=== PATIENT | male | born 1975 | race Hispanic/Latino ===

== ENCOUNTER 2016-10-24 06:03 | Day surgery (SDC) | payer MEDICARE ==
[~2016-10-24 06:03] MED LIST: NACL 0.9% 1000 ML 1,000 ML IV SCH; PEPCID PO NR; VERSED IV NR
[2016-10-24] MEDS ORDERED: NACL BACTERIOSTATIC INFILTRATI ONE (06:40)
--- NOTE | 2016-10-24 07:24 | Anesthesia Day of Surgery ---
Anesthesia Day of Surgery - Day of Surgery Patient Examined: Yes Patient H&P Reviewed: Yes Patient is NPO: Yes Beta Blockers: No Cardiac Clearance: No Pulmonary Clearance: No
[2016-10-24] MEDS ORDERED: SUBLIMAZE IV PRN (07:25)
[2016-10-24] MEDS ORDERED: ZOFRAN IV PRN (07:25)
[2016-10-24] MEDS ORDERED: DILAUDID IV PRN (07:25)
--- NOTE | 2016-10-24 07:25 | Anesthesia Consultation ---
Anesthesia Consult and Med Hx Date of service: 10/24/16 - Airway Anesthetic Teeth Evaluation: Good ROM Head & Neck: Adequate Mental/Hyoid Distance: Adequate Mallampati Class: Class II Intubation Access Assessment: Probably Good - Pulmonary Exam CTA: Yes (CLEAR) - Cardiac Exam Cardiac Exam: RRR - Pre-Operative Health Status ASA Pre-Surgery Classification: ASA3 Proposed Anesthetic Plan: General (MENTALLY HANDICAPPED) - Pulmonary Hx Smoking: No Hx Asthma: Yes (ON INHALERS) COPD: No Hx Pneumonia: Yes Hx Sleep Apnea: No (CORDELL PRE SCREEN HIGH RISK) - Cardiovascular System Hx Hypertension: Yes (X 16 YRS) - Central Nervous System Hx Seizures: Yes (ON MEDS- LAST SEIZURE 2 YRS AGO) Hx Psychiatric Problems: Yes (EASILY AGITATED,WILL FIGHT WHEN SCARED) - Endocrine Hx End Stage Renal Disease: No - Other Systems Hx Cancer: No
[2016-10-24] MEDS ORDERED: PROVENTIL IH NR (07:30)
[2016-10-24] MEDS ORDERED: SUBLIMAZE ONE (07:33)
[2016-10-24] MEDS ORDERED: XYLOCAINE MPF 2% ONE (07:33)
[2016-10-24] MEDS ORDERED: ZOFRAN ONE (07:33)
[2016-10-24] MEDS ORDERED: DIPRIVAN 10 MG/ML IV ONE (07:33)
[2016-10-24] MEDS ORDERED: ANCEF/STERILE WATER 2 GM/20 ML 2 GM/20 ML SYRINGE IV ONE (08:26)
[2016-10-24] MEDS ORDERED: ANCEF/STERILE WATER 2 GM/20 ML IV NR (08:30)
[2016-10-24] MEDS ORDERED: VERSED ONE (08:34)
--- NOTE | 2016-10-24 08:40 | Short Stay Summary ---
Short Stay Documentation Date of service: 10/24/16 - History H&P: obtained from office - Allergies and Medications Current Medications: Allergies No Known Allergies Allergy (Verified 10/08/16 16:13) Home Medications Medication Instructions Recorded Confirmed Last Taken Type Fluticasone/Salmeterol [Advair 1 puff IH BID 01/23/15 10/24/16 10/24/16 History Diskus 250-50 mcg] Omeprazole [PriLOSEC] 20 mg PO QDAY 01/23/15 10/08/16 10/23/16 History Benztropine [Cogentin] 1 mg PO BID tablet 01/28/15 10/08/16 10/23/16 Rx Sertraline [Zoloft] 100 mg PO QDAY tablet 01/28/15 10/08/16 10/23/16 Rx Tamsulosin [Flomax] 0.4 mg PO BID capsule 01/28/15 10/08/16 10/23/16 Rx ARIPiprazole [Abilify TAB] 15 mg PO DAILY 10/08/16 10/08/16 10/23/16 History Docusate Sodium [Colace] 100 mg PO BID 10/08/16 10/08/16 10/23/16 History Psyllium Husk [Metamucil] 0.52 gm PO DAILY 10/08/16 10/24/16 10/23/16 History diphenhydrAMINE [Benadryl CAP] 50 mg PO QHS 10/08/16 10/08/16 10/23/16 History levETIRAcetam [Keppra TAB] 1,000 mg PO BID 10/08/16 10/24/16 10/24/16 07:17 History Active Medications Albuterol (Proventil) 2.5 mg IH PREOP NR Stop: 10/24/16 13:00 Last Admin: 10/24/16 07:24 Dose: 2.5 mg Famotidine (Pepcid) 20 mg PO PREOP NR Stop: 10/24/16 23:59 Last Admin: 10/24/16 07:17 Dose: 20 mg Fentanyl (Sublimaze) 50 mcg IV Q5MIN PRN PRN Reason: Pain , Severe (7-10) Stop: 10/24/16 16:00 Hydromorphone HCl (Dilaudid) 0.25 mg IV Q10MIN PRN PRN Reason: Pain, Moderate (4-6) Stop: 10/27/16 07:26 Sodium Chloride (Nacl 0.9% 1000 Ml) 1,000 mls @ 75 mls/hr IV DIRECT IZZY Last Admin: 10/24/16 07:15 Dose: 75 mls/hr Midazolam HCl (Versed) 2 mg IV PREOP NR Stop: 10/24/16 23:59 Last Admin: 10/24/16 07:34 Dose: 2 mg Ondansetron HCl (Zofran) 4 mg IV ONCE PRN PRN Reason: Nausea And Vomiting Stop: 10/24/16 16:00 - Brief post op/procedure progress note Date of procedure: 10/24/16 Pre-op diagnosis: BPH , USD Post-op diagnosis: same Procedure: cysto, dviu, rpg Anesthesia: GETA Findings: usd Surgeon: TANA DOVER Estimated blood loss: minimal Pathology: none Condition: stable - Hospital course Hospital course: orpacuhome - Disposition Condition at discharge: Good Disposition: DISCHARGED TO HOME OR SELFCARE Short Stay Discharge Plan Activity: advance as tolerated Diet: advance as tolerated Follow up with: TANA DOVER MD [Staff Physician] - 7 Days
[2016-10-24] MEDS ORDERED: WATER FOR IRRIG STERILE IR ONE (08:55)
[2016-10-24] MEDS ORDERED: OMNIPAQUE 300 MG/50 ML (CATH LAB) IV ONE (09:08)
[2016-10-24] MEDS ORDERED: LACTATED RINGERS 1,000 ML ONE (09:29)
[2016-10-24] MEDS ORDERED: DEMEROL ONE (09:44)
[2016-10-24] MEDS ORDERED: DEMEROL IV PRN (09:50)
--- NOTE | 2016-10-24 10:57 | Post Anesthesia Evaluation ---
- Post Anesthesia Evaluation Patient Participated: No (resting) Airway Patent: Yes Stable Respiratory Function: Yes Nausea/Vomiting: No Temp > 96.8F: Yes Pain Manageable: Yes Adequeate Hydration: Yes Anesthesia Complications: No Block Receding Appropriately: Not Applicable Patient on Ventilator: No
--- NOTE | 2016-10-24 11:27 | Fluoroscopy Report ---
Retrograde pyelogram: Urethral stricture. The great injections were made into the distal ureters bilaterally with good opacification of the ureters and intrarenal collecting system. There is good distention with no filling defects or displacement.
[2016-10-24 12:19] VITALS: BP 109/70
--- NOTE | 2016-11-08 10:29 | Operative Report ---
PREOPERATIVE DIAGNOSIS: Urethral stricture disease. POSTOPERATIVE DIAGNOSIS: Urethral stricture disease. PROCEDURE: Cystoscopy, bilateral RPG, and DVIU. SURGEON: Ge Willingham M.D. ANESTHESIA: General. SPECIMENS: None. ESTIMATED BLOOD LOSS: Minimal. COMPLICATIONS: None. FINDINGS: Bulbar urethral stricture, 1-2 cm, mild density. CLINICAL INDICATIONS: The patient counseled in the RCBA, antibiotics, SCDs, counseled, desired to proceed. DESCRIPTION OF PROCEDURE: The patient was transferred to the OR suite in supine position, anesthesia, dorsal lithotomy, prepped and draped in standard fashion. A 22-[place] scope, small ____ mm stricture identified. Wire passed in the bladder under fluoroscopic visualization. DVIU ____ was passed, incision made at the 12 o'clock position, measured approximately 1-2 cm with moderate density. The scope was then passed into the bladder. There was moderately large lateral lobe and mildly large median lobe. A ____ [place] scope passed in the bladder, pancystoscopy 30 and 70-degree lens demonstrated no tumors, lesions or other abnormality. Right UO cannulated with 8-[place] cone-tipped catheter, contrast injected. Normal right distal ureter, proximal ureter, renal pelvis, calyces. No filling defects or hydronephrosis. Repeated on the left side with similar normal findings on retrograde pyelogram. At this point, the scope was withdrawn. A 20-[place] catheter was inserted. Balloon inflated, ____ confirmed our position. Exam under anesthesia, bilateral descended testicles, no masses. Digital rectal exam, prostate, no nodules. The patient awakened and transferred to the PACU in good and stable condition. JOB# [id number] ATS/NTS
== END 2016-10-24 11:30 | disposition home or self-care (01) ==
LOC: OR 06:03
PROVIDERS: ATTEND Urology
DX: N35.8 Other urethral stricture (principal); N40.1 Benign prostatic hyperplasia with lower urinary tract symptoms; K21.9 Gastro-esophageal reflux disease without esophagitis; E03.9 Hypothyroidism, unspecified; H54.8 Legal blindness, as defined in USA; F79 Unspecified intellectual disabilities; I10 Essential (primary) hypertension; J45.909 Unspecified asthma, uncomplicated; Z79.899 Other long term (current) drug therapy; Z83.3 Family history of diabetes mellitus; Z82.49 Family history of ischemic heart disease and other diseases of the circulatory system; Z81.8 Family history of other mental and behavioral disorders; Z87.01 Personal history of pneumonia (recurrent)
CPT/HCPCS: 52005; 52276; 74420; 88305; 88341; 88342; A4217; C1758; C1769; J0690; J2175; J2250; J2405; J2704; J3010; J7030; J7120; Q9967

== ENCOUNTER 2017-10-31 20:24 | Emergency (ER) | payer MEDICARE ==
--- NOTE | 2017-11-01 02:22 | Emergency Department Report ---
Chief Complaint: Back Pain/Injury Stated Complaint: BACK PAIN Time Seen by Provider: 11/01/17 02:14 - Exam Vital Signs: Vital Signs 10/31/17 22:12 Temperature 98.5 F Pulse Rate 87 Respiratory 16 Rate Blood Pressure 132/98 [Right] O2 Sat by Pulse 96 Oximetry MSE screening note: Focused history and physical exam performed. Due to findings the following was ordered: ED Disposition for MSE Condition: Stable Referrals: PRIMARY CARE, [Primary Care Provider] - 3-5 Days
--- NOTE | 2017-11-01 02:38 | Emergency Department Report ---
ED Back Pain/Injury HPI - General Chief Complaint: Back Pain/Injury Stated Complaint: BACK PAIN Time Seen by Provider: 11/01/17 02:14 Source: patient Mode of arrival: Stretcher Limitations: No Limitations - History of Present Illness Initial Comments: Patient reports that he fell 2 weeks ago while he was at home and follows accidental 97 increasing back pain. Pain is 10 out of 10. Pain is located to his upper and lower back midline. Denies any numbness or tender extremities. Denies any loss of bowel or bladder function. Denies any head injury or neck pain. Pain is achy worse with movement better with rest. Patient came via EMS and he has a caregiver at home. Patient with history of chronic back pain, asthma, hypertension, GERD, seizure and he had his last seizure 2 years ago, mental retardation, legally blind, pneumonia, metal plate in back of his head. 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 History of thyroid surgery. MD Complaint: back pain, back injury, fall Onset/Timin -: week(s) Similar Symptoms Previously: Yes Place: home Radiation: none Severity: severe Severity scale (0 -10): 10 Quality: aching Consistency: constant Improves With: none Worsens With: movement, sitting upright (decision up to long) Context: fall (accidental) Associated Symptoms: difficulty walking. denies: confusion, weakness, chest pain, numbness, cough, difficulty urinating, diaphoresis, incontinence, fever/ chills, constipation, headaches, abdominal pain, loss of appetite, malaise, nausea/vomiting, rash, seizure, shortness of breath, syncope Treatments Prior to Arrival: acetaminophen - Related Data Home Medications Medication Instructions Recorded Confirmed Last Taken Fluticasone/Salmeterol [Advair 1 puff IH BID 01/23/15 10/24/16 10/24/16 Diskus 250-50 mcg] Omeprazole [PriLOSEC] 20 mg PO QDAY 01/23/15 10/08/16 10/23/16 ARIPiprazole [Abilify TAB] 15 mg PO DAILY 10/08/16 10/08/16 10/23/16 Docusate Sodium [Colace] 100 mg PO BID 10/08/16 10/08/16 10/23/16 Psyllium Husk [Metamucil] 0.52 gm PO DAILY 03/10/24/16 10/23/16 diphenhydrAMINE [Benadryl CAP] 50 mg PO QHS 10/08/16 10/08/16 10/23/16 levETIRAcetam [Keppra TAB] 1,000 mg PO BID 10/08/16 10/24/16 10/24/16 07:17 Previous Rx's Medication Instructions Recorded Last Taken Type Benztropine [Cogentin] 1 mg PO BID tablet 01/28/15 10/23/16 Rx Sertraline [Zoloft] 100 mg PO QDAY tablet 01/28/15 10/23/16 Rx Tamsulosin [Flomax] 0.4 mg PO BID capsule 01/28/15 10/23/16 Rx Allergies Allergy/AdvReac Type Severity Reaction Status Date / Time No Known Allergies Allergy Verified 10/08/16 16:13 ED Review of Systems ROS: Stated complaint: BACK PAIN Other details as noted in HPI Comment: All other systems reviewed and negative Constitutional: no symptoms reported Respiratory: no symptoms reported Cardiovascular: denies: chest pain, palpitations, dyspnea on exertion, edema, syncope, paroxysmal nocturnal dyspnea Gastrointestinal: denies: abdominal pain, nausea, vomiting, diarrhea, constipation, hematemesis, melena Genitourinary: denies: dysuria, frequency, hematuria Musculoskeletal: back pain. denies: joint swelling, arthralgia, myalgia Skin: denies: rash Neurological: other (patient is wheelchair-bound). denies: headache, weakness, numbness, paresthesias, confusion ED Past Medical Hx - Past Medical History Previous Medical History?: Yes Hx Hypertension: Yes (X 16 YRS) Hx Congestive Heart Failure: No Hx Diabetes: No Hx GERD: Yes Hx Seizures: Yes (ON MEDS- LAST SEIZURE 2 YRS AGO) Hx Asthma: Yes (ON INHALERS) Hx COPD: No Additional medical history: legally blind. pneumonia - Surgical History Past Surgical History?: Yes Additional Surgical History: METAL PLATE in the back of his head. 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 thyroid surgery - Family History Family history: hypertension - Social History Smoking Status: Never Smoker Substance Use Type: None - Medications Home Medications: Home Medications Medication Instructions Recorded Confirmed Last Taken Type Fluticasone/Salmeterol [Advair 1 puff IH BID 01/23/15 10/24/16 10/24/16 History Diskus 250-50 mcg] Omeprazole [PriLOSEC] 20 mg PO QDAY 01/23/15 10/08/16 10/23/16 History Benztropine [Cogentin] 1 mg PO BID tablet 01/28/15 10/08/16 10/23/16 Rx Sertraline [Zoloft] 100 mg PO QDAY tablet 01/28/15 10/08/16 10/23/16 Rx Tamsulosin [Flomax] 0.4 mg PO BID capsule 01/28/15 10/08/16 10/23/16 Rx ARIPiprazole [Abilify TAB] 15 mg PO DAILY 10/08/16 10/08/16 10/23/16 History Docusate Sodium [Colace] 100 mg PO BID 10/08/16 10/08/16 10/23/16 History Psyllium Husk [Metamucil] 0.52 gm PO DAILY 10/08/16 10/24/16 10/23/16 History diphenhydrAMINE [Benadryl CAP] 50 mg PO QHS 10/08/16 10/08/16 10/23/16 History levETIRAcetam [Keppra TAB] 1,000 mg PO BID 10/08/16 10/24/16 10/24/16 07:17 History ED Physical Exam - General Limitations: Physical Limitation (patient ambulates with a cane) General appearance: alert, in no apparent distress - Head Head exam: Present: atraumatic, normocephalic, normal inspection, other (normal exam) - Eye Eye exam: Present: normal appearance, PERRL, EOMI, other (patient legally blind) - ENT ENT exam: Present: normal exam, normal orophraynx, mucous membranes moist - Neck Neck exam: Present: normal inspection, full ROM, other (no C-spine tenderness). Absent: tenderness, meningismus, lymphadenopathy - Respiratory Respiratory exam: Present: normal lung sounds bilaterally. Absent: respiratory distress, chest wall tenderness - Cardiovascular Cardiovascular Exam: Present: regular rate, normal rhythm, normal heart sounds - GI/Abdominal GI/Abdominal exam: Present: soft, normal bowel sounds. Absent: distended, tenderness, guarding, rebound, rigid - Extremities Exam Extremities exam: Present: normal inspection, full ROM, normal capillary refill , other (no clubbing cyanosis or edema noted. +2 pulses to all extremities. Multiple fingers to both hands deformity from previous amputation and multiple toes to both feet lab and also previous amputation.). Absent: tenderness, pedal edema, joint swelling, calf tenderness - Back Exam Back exam: Present: normal inspection, full ROM, tenderness (tender to palpate for T Sherry spine upper and lower), vertebral tenderness, other (patient able to ambulate with a cane.). Absent: CVA tenderness (R), CVA tenderness (L), muscle spasm, paraspinal tenderness, rash noted - Neurological Exam Neurological exam: Present: alert, oriented X3, abnormal gait (patient with abnormal gait due to congenital abnormality to lower extremities. He also has posterior both feet amputated. Patient ambulates with a cane.), reflexes normal - Expanded Neurological Exam Expanded Neurological exam: Absent: innattentive, memory loss-remote event, memory loss- recent event, receptive aphasia, expressive aphasia, total aphasia, tremor, protecting the airway Patient oriented to: Present: person, place, time Speech: Present: fluid speech Cranial nerves: EOM's Intact: Normal, Gag Reflex: Normal, Tongue Deviation: Normal, Facial Sensation: Normal Cerebellar function: Finger to Nose: Normal, Romberg: Abnormal Right, Abnormal Left (patient with congenital abnormalities which makes him unsteady on his feet.) Upper motor neuron: Sensory Extinction: Normal Sensory exam: Upper Extremity Light Touch: Normal, Upper Extremity Temperature: Normal, UE 2 Point Discrimination: Normal, Lower Extremity Light Touch: Normal, Lower Extremity Temperature: Normal, LE 2 Point Discrimination: Normal Motor strength exam: RUE: 5, LUE: 5, RLE: 5, LLE: 5 DTR: bicep (R): 2+, bicep (L): 2+, knee (R): 2+, knee (L): 2+ Best Eye Response (Latoya): (4) open spontaneously Best Motor Response (Latoya): (6) obeys commands Best Verbal Response (Latoya): (5) oriented [place] Total: 15 - Psychiatric Psychiatric exam: Present: normal affect, normal mood - Skin Skin exam: Present: warm, dry, intact, normal color. Absent: rash ED Course Vital Signs 10/31/17 22:12 Temperature 98.5 F Pulse Rate 87 Respiratory 16 Rate Blood Pressure 132/98 [Right] O2 Sat by Pulse 96 Oximetry - Reevaluation(s) Reevaluation #1: 11/01/17 03:42 Positive and Gautier 5/325 2 tablets when necessary emergency room for ED Medical Decision Making - Radiology Data Radiology results: report reviewed X-ray to thoracic spine reveal no acute fracture or traumatic subluxation. Mild to moderate degenerative changes. X-ray of lumbar spine revealed no acute fracture or traumatic subluxation. Mild to moderate degenerative changes. - Medical Decision Making ED course: Patient reports that he fell 2 weeks ago and is having upper and lower back pain. Patient had CT scan of thoracic and lumbar spine and it showed no acute abnormalities but patient with chronic arthritis. Patient was given Gautier 5/325 2 tablets in the emergency room for pain. I discussed this with him and I told him that he needs to follow up with orthopedic doctor. He said he called his primary care doctor and they said that they didn't need to see him. I discussed with him that he needs to call and schedule an appointment status post fall with back pain. Patient has chronic back pain which was exacerbation by fall. Patient discharged home in stable condition with caregiver. He said he takes Tylenol at home for pain that was prescribed by his primary care. Critical care attestation.: If time is entered above; I have spent that time in minutes in the direct care of this critically ill patient, excluding procedure time. ED Disposition Clinical Impression: Acute exacerbation of chronic low back pain Degenerative disc disease Qualifiers: Spinal region: thoracolumbar Qualified Code(s): M51.35 - Other intervertebral disc degeneration, thoracolumbar region Disposition: -01 TO HOME OR SELFCARE Is pt being admited?: No Does the pt Need Aspirin: No Condition: Stable Instructions: Back Pain (ED), Degenerative Disc Disease (ED), Fall Prevention ( ED) Additional Instructions: Please continue taking Tylenol as prescribed by primary care doctor Primary care in the morning to schedule follow-up visit status post fall with back pain Please schedule an appointment to follow up with Dr. Orozco was orthopedic doctor for management of chronic back pain. Referrals: LUIS E MARTINEZ MD [Primary Care Provider] - 11/04/17 FERNIE OROZCO MD [Staff Physician] - 3-5 Days
--- NOTE | 2017-11-01 03:03 | Cat Scan Report ---
FINAL REPORT EXAM: CT LUMBAR SPINE WO CON HISTORY: fall with lower back pain COMPARISON: None available. TECHNIQUE: Contiguous axial images were obtained. Additional sagittal and coronal reformatted images were obtained. FINDINGS: Lumbar vertebral body heights are preserved. Mild loss of disc height T12-L1 level. Broad-based disc bulge endplate osteophyte at the T12-L1 level causes moderate canal stenosis. No acute fracture or traumatic subluxation of the lumbar spine. Mild broad-based disc bulges at the L3-L4 through L5-S1 levels. Minimal to mild canal stenosis at those levels. Mild foraminal narrowing L4-L5 and L5-S1 levels due to endplate osteophyte facet changes. IMPRESSION: No acute fracture or traumatic subluxation of the lumbar spine. [id number] degenerative changes.
--- NOTE | 2017-11-01 03:21 | Cat Scan Report ---
FINAL REPORT EXAM: CT THORACIC SPINE WO CON HISTORY: fall with upper back pain COMPARISON: None available. TECHNIQUE: Contiguous axial images were obtained. Additional sagittal and coronal reformatted images were obtained. FINDINGS: No acute fracture or traumatic subluxation of the thoracic spine. Thoracic vertebral body heights preserved. Mild to moderate loss of disc height and moderate anterior endplate osteophyte throughout the thoracic spine. At the T5-T6 through T7-T8 levels, there mild broad-based disc bulge causing mild canal stenosis. At the T11-T12 level, is a right paracentral endplate osteophyte causing mild to moderate focal canal stenosis. At the T12-L1 level, there is a broad-based disc bulge with right paracentral endplate osteophyte causing moderate canal stenosis. This measures 6 x 9 millimeters in axial dimension. Paraspinal musculature is grossly unremarkable. Visualized posterior ribs are intact. Calcified granuloma right lower lobe measuring 5 millimeters. IMPRESSION: No acute fracture or traumatic subluxation of the thoracic spine. Mild to moderate degenerative changes of the thoracic spine.
[2017-11-01] MEDS ORDERED: NORCO 5/325 PO ONE (03:41)
[2017-11-01 04:08] VITALS: BP 130/84
== END 2017-11-01 03:55 | disposition home or self-care (01) ==
LOC: ED 20:24
DX: M51.35 Other intervertebral disc degeneration, thoracolumbar region (principal); M54.5 Low back pain; G89.29 Other chronic pain; I10 Essential (primary) hypertension; K21.9 Gastro-esophageal reflux disease without esophagitis
CPT/HCPCS: 72128; 72131

== ENCOUNTER 2017-11-11 20:17 | Emergency (ER) | payer MEDICARE ==
[2017-11-11 22:12] LABS: Hematocrit 44.1 % (35.5-45.6); Mean Corpuscular HGB Conc 34 % (32-34); Mean Corpuscular Hemoglobin 31 pg (28-32); Mean Corpuscular Volume 93 fl (84-94); Platelet Count 230 K/mm3 (140-440); Red Blood Count 4.77 M/mm3 (3.65-5.03)
[2017-11-11 22:24] LABS: BUN/Creatinine Ratio 12; Blood Urea Nitrogen 7 mg/dL (9-20); Calcium 8.8 mg/dL (8.4-10.2); Hemolysis Index 10
[2017-11-12] MEDS ORDERED: NACL 0.9% 1000 ML 1,000 ML IV ONE (05:37)
[2017-11-12] MEDS ORDERED: KEPPRA 1,000 MG/NS 0.75% 100ML 1,000 MG/100 ML BAG IV ONE (05:37)
[2017-11-12 06:27] VITALS: BP 136/91
--- NOTE | 2017-11-12 06:27 | Emergency Department Report ---
ED General Adult HPI - General Chief complaint: Seizure Stated complaint: MENTAL HEALTH Time Seen by Provider: 11/12/17 06:21 Source: patient, EMS Mode of arrival: Ambulatory Limitations: No Limitations - History of Present Illness Initial comments: This is a 41 year old male with a history of schizophrenia residing at a alf. There is a question as to whether he had a seizure. He was aware that he was shaking. He admits anxiety. He states he has concerns about a lot of medical issues like "maybe I might have a heart attack". He is not hallucinating, depressed, suicidal or agitated. He does think he needs something for anxiety. He states I wouldn't mind being admitted to the hospital for 8 days because I was before". He has been previously treated with Keppra by Dr. Beyer a neurologist in [facility]. -: Sudden Radiation: other (no pain complaint) Improves with: none Worsens with: none Associated Symptoms: denies other symptoms (except for anxiety) - Related Data Home Medications Medication Instructions Recorded Confirmed Last Taken Fluticasone/Salmeterol [Advair 1 puff IH BID 01/23/15 10/24/16 10/24/16 Diskus 250-50 mcg] Omeprazole [PriLOSEC] 20 mg PO QDAY 01/23/15 10/08/16 10/23/16 ARIPiprazole [Abilify TAB] 15 mg PO DAILY 10/08/16 10/08/16 10/23/16 Docusate Sodium [Colace] 100 mg PO BID 10/08/16 10/08/16 10/23/16 Psyllium Husk [Metamucil] 0.52 gm PO DAILY 10/08/16 10/24/16 10/23/16 diphenhydrAMINE [Benadryl CAP] 50 mg PO QHS 10/08/16 10/08/16 10/23/16 levETIRAcetam [Keppra TAB] 1,000 mg PO BID 10/08/16 10/24/16 10/24/16 07:17 Previous Rx's Medication Instructions Recorded Last Taken Type Benztropine [Cogentin] 1 mg PO BID tablet 01/28/15 10/23/16 Rx Sertraline [Zoloft] 100 mg PO QDAY tablet 01/28/15 10/23/16 Rx Tamsulosin [Flomax] 0.4 mg PO BID capsule 01/28/15 10/23/16 Rx levETIRAcetam [Keppra] 500 mg PO BID #60 tablet 11/12/17 Unknown Rx Allergies Allergy/AdvReac Type Severity Reaction Status Date / Time No Known Allergies Allergy Verified 10/08/16 16:13 ED Review of Systems ROS: Stated complaint: MENTAL HEALTH Other details as noted in HPI Constitutional: denies: chills, fever Eyes: denies: eye pain, eye discharge, vision change ENT: denies: ear pain, throat pain Respiratory: denies: cough, shortness of breath, wheezing Cardiovascular: denies: chest pain, palpitations Endocrine: no symptoms reported Gastrointestinal: denies: abdominal pain, nausea, diarrhea Genitourinary: denies: urgency, dysuria Musculoskeletal: denies: back pain, joint swelling, arthralgia Skin: denies: rash, lesions Neurological: denies: headache, weakness, paresthesias Psychiatric: anxiety. denies: depression Hematological/Lymphatic: denies: easy bleeding, easy bruising ED Past Medical Hx - Past Medical History Hx Hypertension: Yes (X 16 YRS) Hx Congestive Heart Failure: No Hx Diabetes: No Hx GERD: Yes Hx Seizures: Yes (ON MEDS- LAST SEIZURE 2 YRS AGO) Hx Asthma: Yes (ON INHALERS) Hx COPD: No Additional medical history: legally blind. pneumonia - Surgical History Additional Surgical History: METAL PLATE in the back of his head. 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 thyroid surgery - Social History Smoking Status: Never Smoker Substance Use Type: None - Medications Home Medications: Home Medications Medication Instructions Recorded Confirmed Last Taken Type Fluticasone/Salmeterol [Advair 1 puff IH BID 01/23/15 10/24/16 10/24/16 History Diskus 250-50 mcg] Omeprazole [PriLOSEC] 20 mg PO QDAY 01/23/15 10/08/16 10/23/16 History Benztropine [Cogentin] 1 mg PO BID tablet 01/28/15 10/08/16 10/23/16 Rx Sertraline [Zoloft] 100 mg PO QDAY tablet 01/28/15 10/08/16 10/23/16 Rx Tamsulosin [Flomax] 0.4 mg PO BID capsule 01/28/15 10/08/16 10/23/16 Rx ARIPiprazole [Abilify TAB] 15 mg PO DAILY 10/08/16 10/08/16 10/23/16 History Docusate Sodium [Colace] 100 mg PO BID 10/08/16 10/08/16 10/23/16 History Psyllium Husk [Metamucil] 0.52 gm PO DAILY 10/08/16 10/24/16 10/23/16 History diphenhydrAMINE [Benadryl CAP] 50 mg PO QHS 10/08/16 10/08/16 10/23/16 History levETIRAcetam [Keppra TAB] 1,000 mg PO BID 10/08/16 10/24/16 10/24/16 07:17 History levETIRAcetam [Keppra] 500 mg PO BID #60 tablet 11/12/17 Unknown Rx ED Physical Exam - General Limitations: Other (psychiatric condition) General appearance: alert, in no apparent distress - Head Head exam: Present: atraumatic, normocephalic - Eye Eye exam: Present: normal appearance, PERRL, EOMI. Absent: scleral icterus - ENT ENT exam: Present: mucous membranes moist - Neck Neck exam: Present: normal inspection - Respiratory Respiratory exam: Present: normal lung sounds bilaterally. Absent: respiratory distress - Cardiovascular Cardiovascular Exam: Present: regular rate, normal rhythm. Absent: systolic murmur, diastolic murmur, rubs, gallop - GI/Abdominal GI/Abdominal exam: Present: soft, normal bowel sounds. 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 Absent: motor sensory deficit (as testable) - Psychiatric Psychiatric exam: Present: normal mood, anxious - Skin Skin exam: Present: warm, dry, intact, normal color. Absent: rash ED Course Vital Signs 11/11/17 11/11/17 11/12/17 21:32 21:46 02:25 Temperature 98.3 F 98.3 F 98.0 F Pulse Rate 89 89 68 Respiratory 18 18 18 Rate Blood Pressure 167/103 139/93 Blood Pressure 167/103 [Right] O2 Sat by Pulse 98 98 98 Oximetry 11/12/17 11/12/17 05:33 06:26 Temperature Pulse Rate 74 Respiratory 18 14 Rate Blood Pressure Blood Pressure 136/91 [Right] O2 Sat by Pulse 98 96 Oximetry - Reevaluation(s) Reevaluation #1: Patient received a gram of Keppra. He will be given some Ativan by mouth. He will be given a prescription for Keppra. He is appropriate for outpatient follow-up with his neurologist. I find it quite uncertain as to whether he even had a seizure. 11/12/17 06:56 ED Medical Decision Making - Lab Data Result diagrams: 11/11/17 21:54 11/11/17 21:54 Laboratory Results - last 24 hr 11/11/17 11/11/17 11/11/17 21:54 21:54 21:57 WBC 9.3 RBC 4.77 Hgb 15.0 Hct 44.1 MCV 93 MCH 31 MCHC 34 RDW 14.0 Plt Count 230 Sodium 128 L Potassium 4.0 Chloride 88.8 L Carbon Dioxide 26 Anion Gap 17 BUN 7 L Creatinine 0.6 L Estimated GFR > 60 BUN/Creatinine Ratio 12 Glucose 101 H POC Glucose 101 Calcium 8.8 Critical care attestation.: If time is entered above; I have spent that time in minutes in the direct care of this critically ill patient, excluding procedure time. ED Disposition Clinical Impression: Seizure disorder Schizophrenia Qualifiers: Schizophrenia type: unspecified Qualified Code(s): F20.9 - Schizophrenia, unspecified Disposition: - TO HOME OR SELFCARE Is pt being admited?: No Does the pt Need Aspirin: No Condition: Stable Instructions: Recurrent Seizures Adult (ED), Schizophrenia (ED), Anxiety (ED) Additional Instructions: Follow-up with the usual psychiatric doctor and neurologist. Return any acute change as needed. Rx Keppra Prescriptions: levETIRAcetam [Keppra] 500 mg PO BID #60 tablet Referrals: PRIMARY CARE, [Primary Care Provider] - 3-5 Days usual, neurologist and psychiatrist [Other] - 3-5 Days Time of Disposition: 06:58
== END 2017-11-12 07:28 | disposition home or self-care (01) ==
LOC: EEVIPCON 20:17 → ED 20:17
DX: G40.909 Epilepsy, unspecified, not intractable, without status epilepticus (principal); F20.9 Schizophrenia, unspecified; I10 Essential (primary) hypertension; K21.9 Gastro-esophageal reflux disease without esophagitis
CPT/HCPCS: 36415; 80048; 82962; 85027; 96374; 99284; J1953; J7030

== ENCOUNTER 2017-11-26 20:44 | Observation (INO) | payer MEDICARE ==
[2017-11-26] MEDS ORDERED: ASPIRIN PO ONE (21:26)
[2017-11-26 21:49] LABS: Basophils # (Auto) 0.1 K/mm3 (0.0-0.1); Basophils % (Auto) 0.4 % (0.0-1.8); Eosinophils # (Auto) 0.1 K/mm3 (0.0-0.4); Eosinophils % (Auto) 0.8 % (0.0-4.3); Hematocrit 47.9 % (35.5-45.6); Hemoglobin 16.8 gm/dl (11.8-15.2); Lymphocytes # (Auto) 1.3 K/mm3 (1.2-5.4); Lymphocytes % (Auto) 11.1 % (13.4-35.0); Mean Corpuscular HGB Conc 35 % (32-34); Mean Corpuscular Hemoglobin 32 pg (28-32); Mean Corpuscular Volume 92 fl (84-94); Monocytes # (Auto) 0.7 K/mm3 (0.0-0.8); Monocytes % (Auto) 5.6 % (0.0-7.3); Platelet Count 218 K/mm3 (140-440); Red Cell Distribution Width 13.4 % (13.2-15.2)
[2017-11-26 22:03] LABS: BUN/Creatinine Ratio 16; Blood Urea Nitrogen 11 mg/dL (9-20); Calcium 9.3 mg/dL (8.4-10.2); Hemolysis Index 12
[2017-11-26] MEDS ORDERED: ZOFRAN IV ONE (23:32)
[2017-11-26] MEDS ORDERED: MORPHINE IV ONE (23:33)
--- NOTE | 2017-11-26 23:35 | Emergency Department Report ---
HPI - General Chief Complaint: Chest Pain Time Seen by Provider: 11/26/17 23:19 - HPI HPI: Room 4 The patient is a 41-year-old male presenting with chief complaint of chest pain or shortness of breath. The patient states this evening is lying in his bed and developed substernal chest pain that has been sharp and constant in nature. The patient admits to shortness of breath, nausea/vomiting and diaphoresis with his chest pain. He admits to a pleuritic component. Patient denies fever but admits to an occasionally productive cough. The patient gets his pain is score of 10/10. Patient states he's never had a stress test or cardiac catheterization Location: Chest Duration: One day Quality: Sharp Severity: 10/10 Modifying factors: [see above] Context: [see above] Mode of transportation: [not driving] ED Past Medical Hx - Past Medical History Previous Medical History?: Yes Hx Hypertension: Yes (X 16 YRS) Hx GERD: Yes Hx Seizures: Yes (ON MEDS- LAST SEIZURE 2 YRS AGO) Hx Asthma: Yes (ON INHALERS) Additional medical history: legally blind. pneumonia - Surgical History Past Surgical History?: Yes Additional Surgical History: METAL PLATE in the back of his head. 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 thyroid surgery - Social History Smoking Status: Never Smoker Substance Use Type: None (denies illicit drug use) - Medications Home Medications: Home Medications Medication Instructions Recorded Confirmed Last Taken Type Fluticasone/Salmeterol [Advair 1 puff IH BID 01/23/15 10/24/16 10/24/16 History Diskus 250-50 mcg] Omeprazole [PriLOSEC] 20 mg PO QDAY 01/23/15 10/08/16 10/23/16 History Benztropine [Cogentin] 1 mg PO BID tablet 01/28/15 10/08/16 10/23/16 Rx Sertraline [Zoloft] 100 mg PO QDAY tablet 01/28/15 10/08/16 10/23/16 Rx Tamsulosin [Flomax] 0.4 mg PO BID capsule 01/28/15 10/08/16 10/23/16 Rx ARIPiprazole [Abilify TAB] 15 mg PO DAILY 10/08/16 10/08/16 10/23/16 History Docusate Sodium [Colace] 100 mg PO BID 10/08/16 10/08/16 10/23/16 History Psyllium Husk [Metamucil] 0.52 gm PO DAILY 10/08/16 10/24/16 10/23/16 History diphenhydrAMINE [Benadryl CAP] 50 mg PO QHS 10/08/16 10/08/16 10/23/16 History levETIRAcetam [Keppra TAB] 1,000 mg PO BID 10/08/16 10/24/16 10/24/16 07:17 History levETIRAcetam [Keppra] 500 mg PO BID #60 tablet 11/12/17 Unknown Rx ED Review of Systems ROS: Stated complaint: MH Other details as noted in HPI Constitutional: diaphoresis. denies: fever Respiratory: shortness of breath Cardiovascular: chest pain Gastrointestinal: abdominal pain, nausea, vomiting Physical Exam - Physical Exam Vital Signs: Vital Signs 11/26/17 11/26/17 11/26/17 20:52 21:06 22:53 Temperature 98.4 F 98.4 F 98.3 F Pulse Rate 85 87 65 Respiratory 16 16 18 Rate Blood Pressure 138/98 138/98 Blood Pressure 121/84 [Left] O2 Sat by Pulse 97 97 97 Oximetry Physical Exam: GENERAL: The patient is a well-nourished male lying on stretcher not appearing to be in acute distress. [] HEENT: Surgical scar from previous craniotomy at occiput. Atraumatic. Extraocular motions are intact. Patient has moist mucous membranes. NECK: Supple. Trachea midline CHEST/LUNGS: Clear to auscultation. There is no respiratory distress noted. HEART/CARDIOVASCULAR: Regular. There is no tachycardia. There is no gallop rub or murmur. ABDOMEN: Abdomen is soft, nontender. Patient has normal bowel sounds. There is no abdominal distention. SKIN: There is no rash. There is no edema. There is no diaphoresis. NEURO: The patient is awake, alert, and oriented. The patient is cooperative. The patient has normal speech MUSCULOSKELETAL: There is no evidence of acute injury. ED Course Vital Signs 11/26/17 11/26/17 11/26/17 20:52 21:06 22:53 Temperature 98.4 F 98.4 F 98.3 F Pulse Rate 85 87 65 Respiratory 16 16 18 Rate Blood Pressure 138/98 138/98 Blood Pressure 121/84 [Left] O2 Sat by Pulse 97 97 97 Oximetry ED Medical Decision Making - Lab Data Result diagrams: 11/26/17 21:34 11/26/17 21:34 Laboratory Tests 11/26/17 11/26/17 11/26/17 21:34 21:34 21:34 WBC 12.0 H RBC 5.20 H Hgb 16.8 H Hct 47.9 H MCV 92 MCH 32 MCHC 35 H RDW 13.4 Plt Count 218 Lymph % (Auto) 11.1 L [place] % (Auto) 5.6 Eos % (Auto) 0.8 Baso % (Auto) 0.4 Lymph # 1.3 Hamb[place] # 0.7 Eos # 0.1 Baso # 0.1 Seg Neutrophils % 82.1 H Seg Neutrophils # 9.9 H D-Dimer Sodium Potassium Chloride Carbon Dioxide Anion Gap BUN Creatinine Estimated GFR BUN/Creatinine Ratio Glucose Calcium Troponin T Salicylates < 0.3 L Acetaminophen < 5.0 L Plasma/Serum Alcohol 11/26/17 11/26/17 11/26/17 21:34 21:34 23:47 WBC RBC Hgb Hct MCV MCH MCHC RDW Plt Count Lymph % (Auto) [place] % (Auto) Eos % (Auto) Baso % (Auto) Lymph # Hamblen # Eos # Baso # Seg Neutrophils % Seg Neutrophils # D-Dimer 135.00 Sodium 135 L Potassium 4.1 Chloride 97.6 L Carbon Dioxide 24 Anion Gap 18 BUN 11 Creatinine 0.7 L Estimated GFR > 60 BUN/Creatinine Ratio 16 Glucose 113 H Calcium 9.3 Troponin T < 0.010 Salicylates Acetaminophen Plasma/Serum Alcohol < 0.01 - EKG Data -: EKG Interpreted by Me EKG shows normal: sinus rhythm Rate: normal - EKG Data When compared to previous EKG there are: previous EKG unavailable Interpretation: nonspecific ST-T wave benito (T-wave inversion in lead 3) - Radiology Data Radiology results: report reviewed (chest x-ray), image reviewed (chest x-ray) interpreted by me: Chest x-ray-no focal infiltrate, no pneumothorax [facility] [address] [place] [address] XRay Report Signed Patient: FLORIDA CROCKER MR#: [id number] : 1975 Acct:[id number] Age/Sex: 41 / M ADM Date: 11/26/17 Loc: ED Attending Dr: Ordering Physician: DAVION CLIFTON MD Date of Service: 11/27/17 Procedure(s): XR chest 1V ap Accession Number(s): [id number] cc: DAVION CLIFTON MD Fluoro Time In Minutes: FINAL REPORT EXAM: XR CHEST 1V AP HISTORY: chest pain TECHNIQUE: A portable upright view the chest was obtained. FINDINGS: The heart size and mediastinum appear normal. The lungs are negative for infiltrates or congestion. Pleural fluid is not seen. The bones soft tissues do not show any acute changes. IMPRESSION: No active chest disease. Transcribed By: RB Dictated By: FERNIE LANDIS MD Electronically Authenticated By: FERNIE LANDIS MD Signed Date/Time: 11/27/1726 DD/ TD/TT: 11/27/1726 - Differential Diagnosis ACS, pericarditis, PE, GERD, pneumonia, bronchitis Critical care attestation.: If time is entered above; I have spent that time in minutes in the direct care of this critically ill patient, excluding procedure time. ED Disposition Clinical Impression: Chest pain Disposition: OP ADMIT IP TO THIS HOSP Is pt being admited?: Yes Does the pt Need Aspirin: Yes Condition: Fair Instructions: Chest Pain (ED) Referrals: PRIMARY CARE, [Primary Care Provider] - 3-5 Days Time of Disposition: 00:41 (hospitalist paged (Dr. Mya Lopez))
--- NOTE | 2017-11-27 00:32 | XRay Report ---
FINAL REPORT EXAM: XR CHEST 1V AP HISTORY: chest pain TECHNIQUE: A portable upright view the chest was obtained. FINDINGS: The heart size and mediastinum appear normal. The lungs are negative for infiltrates or congestion. Pleural fluid is not seen. The bones soft tissues do not show any acute changes. IMPRESSION: No active chest disease.
[2017-11-27] MEDS ORDERED: NITRO-BID 2% TP ONE (00:41)
[2017-11-27] MEDS ORDERED: TYLENOL PO PRN (01:34)
[2017-11-27] MEDS ORDERED: PERCOCET 5/325 PO PRN (01:34)
[2017-11-27] MEDS ORDERED: SODIUM CHLORIDE FLUSH SYRINGE 10 ML IV PRN (01:34)
[2017-11-27] MEDS ORDERED: ZOFRAN IV PRN (01:34)
--- NOTE | 2017-11-27 01:47 | History and Physical Report ---
History of Present Illness Date of examination: 11/27/17 History of present illness: 41 -year-old man history of mental retardation, asthma, seizure, legally blind, seizure comes emergency room with complaints of chest pain located in the epigastric area which she describes as sharp, intermittent every 30 minutes, no radiation, candidate and exacerbating or relieving factors. Admits to shortness of breath, palpitations, no nausea vomiting, diaphoresis Review of systems Constitutional: no weight loss, chills Ears, eyes, nose, mouth and throat: no nasal congestion, no nasal discharge, no sinus pressure, no vision change, no red eye. Neck: No neck pain or rigidity. Cardiovascular: +chest pain, palpitations Respiratory: No cough, shortness of breath Gastrointestinal: no abdominal pain, hematochezia Genitourinary : no dysuria, frequency , no hematuria Musculoskeletal: no joint swelling or muscle ache Integumentary: no rash, no pruritis Neurological: no parathesias, no numbness, no focal weakness Endocrine: no cold or heat intolerance, no polyuria or polydipsia Hematologic/Lymphatic: no easy bruising, no easy bleeding, no gland swelling Allergic/Immunologic: no urticaria, no angioedema. 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, seizure PAST SURGICAL HISTORY: Bladder surgery, thyroid surgery SOCIAL HISTORY: Lives in a [place] [facility], no alcohol, tobacco, drugs FAMILY HISTORY: Hypertension Medications and Allergies Allergies Allergy/AdvReac Type Severity Reaction Status Date / Time No Known Allergies Allergy Verified 10/08/16 16:13 Home Medications Medication Instructions Recorded Confirmed Last Taken Type Fluticasone/Salmeterol [Advair 1 puff IH BID 01/23/15 11/27/17 10/24/16 History Diskus 250-50 mcg] Benztropine [Cogentin] 1 mg PO BID tablet 01/28/15 11/27/17 10/23/16 Rx Sertraline [Zoloft] 100 mg PO QDAY tablet 01/28/15 11/27/17 10/23/16 Rx Tamsulosin [Flomax] 0.4 mg PO BID capsule 01/28/15 11/27/17 10/23/16 Rx ARIPiprazole [Abilify TAB] 15 mg PO DAILY 10/08/16 11/27/17 10/23/16 History Docusate Sodium [Colace] 100 mg PO BID 10/08/16 11/27/17 10/23/16 History Psyllium Husk [Metamucil] 0.52 gm PO DAILY 10/08/16 11/27/17 10/23/16 History diphenhydrAMINE [Benadryl CAP] 50 mg PO QHS 10/08/16 11/27/17 10/23/16 History levETIRAcetam [Keppra TAB] 1,000 mg PO BID 10/08/16 11/27/17 10/24/16 07:17 History Exam - Physical Exam Narrative exam: Gen. appearance: Patient lying in bed, no apparent distress HEENT: Normocephalic, atraumatic, pupils equally round and reactive to light, extraocular movement intact, and no sclericterus,. No JVD or thyromegaly or nodule,neck supple, no carotid bruit ,mucous membranes moist, no exudate or erythema Heart: S1, S2, regular rate and rhythm Lungs: Clear to auscultation bilaterally, breathing comfortable Abdomen: Positive bowel sounds, nontender, nondistended, no organomegaly Extremity: No edema, cyanosis, clubbing Skin: No rash, nodules, warm, dry Neuro: Oriented 3, cranial nerves II-12 intact, speech is fluent, motor and sensory intact - Constitutional Vitals: Temp Pulse Resp BP Pulse Ox 98.3 F 74 18 117/74 96 11/26/17 22:53 11/27/17 01:17 11/26/17 22:53 11/27/17 01:17 11/27/17 00:30 Results - Labs CBC & Chem 7: 11/26/17 21:34 11/26/17 21:34 Labs: Abnormal lab results 11/26/17 11/26/17 11/26/17 Range/Units 21:34 21:34 21:34 WBC 12.0 H (4.5-11.0) K/mm3 RBC 5.20 H (3.65-5.03) M/mm3 Hgb 16.8 H (11.8-15.2) gm/dl Hct 47.9 H (35.5-45.6) % MCHC 35 H (32-34) % Lymph % (Auto) 11.1 L (13.4-35.0) % Seg Neutrophils % 82.1 H (40.0-70.0) % Seg Neutrophils # 9.9 H (1.8-7.7) K/mm3 Sodium (137-145) mmol/L Chloride (98-107) mmol/L Creatinine (0.8-1.5) mg/dL Glucose (75-100) mg/dL Salicylates < 0.3 L (2.8-20.0) mg/dL Acetaminophen < 5.0 L (10.0-30.0) ug/mL 11/26/17 Range/Units 21:34 WBC (4.5-11.0) K/mm3 RBC (3.65-5.03) M/mm3 Hgb (11.8-15.2) gm/dl Hct (35.5-45.6) % MCHC (32-34) % Lymph % (Auto) (13.4-35.0) % Seg Neutrophils % (40.0-70.0) % Seg Neutrophils # (1.8-7.7) K/mm3 Sodium 135 L (137-145) mmol/L Chloride 97.6 L (98-107) mmol/L Creatinine 0.7 L (0.8-1.5) mg/dL Glucose 113 H (75-100) mg/dL Salicylates (2.8-20.0) mg/dL Acetaminophen (10.0-30.0) ug/mL - Imaging and Cardiology EKG: image reviewed Chest x-ray: image reviewed Assessment and Plan Assessment Atypical chest pain leukocytosis probably stress-induced Mental retardation Asthma, stable Seizure Plan Admit to medicine Check reticulocyte and alcohol consult cardiology Blood cultures, urinalysis DVT prophylaxis
[2017-11-27 01:56] LABS: Bilirubin,Urine NEG (Negative); Blood,Urine NEG (Negative); Color,Urine Straw (Yellow); Protein,Urine <15 mg/dL mg/dL (Negative); Urobilinogen,Urine < 2.0 mg/dL (<2.0)
[2017-11-27 02:03] LABS: Amphetamine Screen,Urine PRESUMPTIVE NEGATIVE; Benzodiazepines Screen,Urine PRESUMPTIVE NEGATIVE; Cannabinoid Screen,Urine PRESUMPTIVE NEGATIVE; Cocaine Screen,Urine PRESUMPTIVE NEGATIVE; Methadone Screen,Urine PRESUMPTIVE NEGATIVE; Opiate Screen,Urine PRESUMPTIVE NEGATIVE
[2017-11-27 09:34] LABS: Creatine Kinase MB 2.5 ng/mL (0.0-4.0)
[2017-11-27] MEDS ORDERED: NON-FORMULARY (Fluticasone/Salmeterol [Advair Diskus 250-50 Mcg] 1 PUFF) IH SCH (10:00)
[2017-11-27] MEDS: ABILIFY PO SCH (10:21)
[2017-11-27] MEDS: COGENTIN PO SCH ×2 (10:21→21:22)
[2017-11-27] MEDS: KEPPRA PO SCH ×2 (10:21→21:22)
[2017-11-27] MEDS: COLACE PO SCH ×2 (10:21→21:23)
[2017-11-27] MEDS: LOVENOX SUB-Q SCH (10:22)
[2017-11-27] MEDS: SODIUM CHLORIDE FLUSH SYRINGE 10 ML IV SCH ×2 (10:22→21:22)
[2017-11-27] MEDS: ZOLOFT PO SCH (11:42)
[2017-11-27] MEDS: FLOMAX PO SCH ×2 (11:42→21:23)
[2017-11-27] MEDS ORDERED: DUONEB *Not for PRN Use IH ONE (12:04)
[2017-11-27] MEDS: PULMICORT IH SCH ×2 (12:19→20:24)
[2017-11-27] MEDS: BROVANA NEBU IH SCH ×2 (12:19→20:24)
--- NOTE | 2017-11-27 12:38 | Consultation ---
History of Present Illness Consult date: 11/27/17 Requesting physician: NEIL DELGADILLO Consult reason: chest pain History of present illness: The patient is a 41-year-old male with a past medical history significant for HTN, seizures (reports last seizure was 4 years ago), congenital deformity of hands and feet, cognitive impairment and lives in [facility]. He is previously unknown to our practice. He presented with complaints of generalized pain, including chest pain, and an episode or paralysis last night. He reports that he was lying in his bed when he suddenly became unable to move his body. His arms crossed across his chest and legs were extended out straight. He denies any loss of consciousness or seizure-like activity. He called for help and a home care chaplain in his [facility] responded and called EMS. The episode of paralysis lasted for approximately 30 minutes. He reports generalized body pain, including chest pain. He describes his chest pain as a nonexertional, nonradiating midsternal sharp pain which is aggravated by deep breathing and coughing and is somewhat reproducible with palpation. He denies any SOB, palpitations, n/v, diaphoresis, dizziness or syncope. He denies any prior cardiac issues or cardiac evaluation. Past History Past Medical History: hyperlipidemia, seizures, other (cognitive impairment, congenital deformity of hands and feet) Medications and Allergies Allergies Allergy/AdvReac Type Severity Reaction Status Date / Time No Known Allergies Allergy Verified 10/08/16 16:13 Home Medications Medication Instructions Recorded Confirmed Last Taken Type Fluticasone/Salmeterol [Advair 1 puff IH BID 01/23/15 11/27/17 10/24/16 History Diskus 250-50 mcg] Benztropine [Cogentin] 1 mg PO BID tablet 01/28/15 11/27/17 10/23/16 Rx Sertraline [Zoloft] 100 mg PO QDAY tablet 01/28/15 11/27/17 10/23/16 Rx Tamsulosin [Flomax] 0.4 mg PO BID capsule 01/28/15 11/27/17 10/23/16 Rx ARIPiprazole [Abilify TAB] 15 mg PO DAILY 10/08/16 11/27/17 10/23/16 History Docusate Sodium [Colace] 100 mg PO BID 10/08/16 11/27/17 10/23/16 History Psyllium Husk [Metamucil] 0.52 gm PO DAILY 10/08/16 11/27/17 10/23/16 History diphenhydrAMINE [Benadryl CAP] 50 mg PO QHS 10/08/16 11/27/17 10/23/16 History levETIRAcetam [Keppra TAB] 1,000 mg PO BID 10/08/16 11/27/17 10/24/16 07:17 History Active Meds: Active Medications Acetaminophen (Tylenol) 650 mg PO Q4H PRN PRN Reason: Pain MILD(1-3)/Fever >100.5/NEUMANN Arformoterol Tartrate (Brovana Nebu) 15 mcg IH Q12HRT [facility] Last Admin: 11/27/17 12:19 Dose: 15 mcg Aripiprazole (Abilify) 15 mg PO DAILY [facility] Last Admin: 11/27/17 10:21 Dose: 15 mg Benztropine Mesylate (Cogentin) 1 mg PO BID [facility] Last Admin: 11/27/17 10:21 Dose: 1 mg Budesonide (Pulmicort) 0.5 mg IH Q12HRT [facility] Last Admin: 11/27/17 12:19 Dose: 0.5 mg Docusate Sodium (Colace) 100 mg PO BID [facility] Last Admin: 11/27/17 10:21 Dose: 100 mg Enoxaparin Sodium (Lovenox) 40 mg SUB-Q QDAY [facility] Last Admin: 11/27/17 10:22 Dose: 40 mg Levetiracetam (Keppra) 1,000 mg PO BID [facility] Last Admin: 11/27/17 10:21 Dose: 1,000 mg Ondansetron HCl (Zofran) 4 mg IV Q8H PRN PRN Reason: Nausea And Vomiting Oxycodone/Acetaminophen (Percocet 5/325) 1 tab PO Q6H PRN PRN Reason: Pain, Moderate (4-6) Last Admin: 11/27/17 10:22 Dose: 1 tab Sertraline HCl (Zoloft) 100 mg PO QDAY [facility] Last Admin: 11/27/17 11:42 Dose: 100 mg Sodium Chloride (Sodium Chloride Flush Syringe 10 Ml) 10 ml IV BID [facility] Last Admin: 11/27/17 10:22 Dose: 10 ml Sodium Chloride (Sodium Chloride Flush Syringe 10 Ml) 10 ml IV PRN PRN PRN Reason: LINE FLUSH Tamsulosin HCl (Flomax) 0.4 mg PO BID [facility] Last Admin: 11/27/17 11:42 Dose: 0.4 mg Review of Systems Constitutional: other (30 minute episode of paralysis and generalized pain ), no weight loss, no weight gain, no fever, no chills, no sweats Ears, nose, mouth and throat: no ear pain, no nose pain, no sinus pressure, no sinus pain Cardiovascular: chest pain, phlebitis, no orthopnea, no palpitations, no rapid/ irregular heart beat, no edema, no syncope, no lightheadedness, no shortness of breath, no dyspnea on exertion, no leg edema Respiratory: pain on inspiration, no cough, no shortness of breath, no dyspnea on exertion, no congestion, no wheezing Gastrointestinal: no abdominal pain, no nausea, no vomiting, no diarrhea, no constipation, no change in bowel habits Genitourinary Male: no dysuria, no hematuria, no flank pain, no discharge, no urinary frequency, no urinary hesitancy Musculoskeletal: other (generalized pain) Integumentary: no rash, no wounds Neurological: other (30 min bout of paralysis ), no head injury, no weakness, no parathesias, no numbness, no tingling, no seizures, no syncope Psychiatric: no anxiety Endocrine: no cold intolerance, no heat intolerance Hematologic/Lymphatic: no easy bruising, no easy bleeding, no lymphadenopathy Allergic/Immunologic: no urticaria, no wheezing, no persistent infections Physical Examination Vital Signs Temp Pulse Resp BP Pulse Ox 98.4 F 85 16 138/98 97 11/26/17 20:52 11/26/17 20:52 11/26/17 20:52 11/26/17 20:52 11/26/17 20:52 General appearance: no acute distress HEENT: Positive: PERRL, Normocephaly, Mucus Membranes Moist Neck: Positive: neck supple, trachea midline Cardiac: Positive: Reg Rate and Rhythm Lungs: Positive: Normal Exam, clear to auscultation, Normal Breath Sounds Neuro: Positive: Grossly Intact Abdomen: Positive: Soft. Negative: Tender Skin: Positive: Clear. Negative: Rash, Wound Musculoskeletal: No Fluid Collection, No Pain, Normal Range of Motion Extremities: Present: Other (congenital deformity of hands and feet) Results 11/26/17 21:34 11/26/17 21:34 Cardiac Enzymes 11/27/17 11/27/17 Range/Units 02:57 08:50 CK-MB (CK-2) 3.0 2.5 (0.0-4.0) ng/mL CBC 11/26/17 Range/Units 21:34 WBC 12.0 H (4.5-11.0) K/mm3 RBC 5.20 H (3.65-5.03) M/mm3 Hgb 16.8 H (11.8-15.2) gm/dl Hct 47.9 H (35.5-45.6) % Plt Count 218 (140-440) K/mm3 Lymph # 1.3 (1.2-5.4) K/mm3 [place] # 0.7 (0.0-0.8) K/mm3 Eos # 0.1 (0.0-0.4) K/mm3 Baso # 0.1 (0.0-0.1) K/mm3 Comprehensive Metabolic Panel 11/26/17 Range/Units 21:34 Sodium 135 L (137-145) mmol/L Potassium 4.1 (3.6-5.0) mmol/L Chloride 97.6 L (98-107) mmol/L Carbon Dioxide 24 (22-30) mmol/L BUN 11 (9-20) mg/dL Creatinine 0.7 L (0.8-1.5) mg/dL Glucose 113 H (75-100) mg/dL Calcium 9.3 (8.4-10.2) mg/dL - Imaging and Cardiology Echo: pending EKG: report reviewed, image reviewed EKG interpretations - Telemetry EKG Rhythm: Sinus Rhythm - EKG Sinus rhythms and dysrhythmias: sinus rhythm Assessment and Plan Assessment: Transient neurological symptoms - ? seizure Chest pain, atypical - ECG with NAF, Dasha negative for AMI; somewhat pleuritic and somewhat reproducible with palpation HTN H/o seizures - pt reports last seizure 4 years ago Congenital deformity of hands and feet H/o cognitive impairment - pt is halfway resident of a [facility] Plan: Do not suspect ACS at this time. Obtain echo. Cardiac stress testing for risk stratification is recommended. However, lexiscan may be required which may precipitate seizures and pt with h/o seizures and with recent transient neurological symptoms. Recommend neurology consultation and clearance to proceed with stress testing. Assessment and plan reviewed with pt at bedside. The patient has been seen in conjunction with Dr. Blake who agrees with the assessment and plan of care.
--- NOTE | 2017-11-27 22:58 | Progress Note ---
Assessment and Plan Assessment and plan: Patient is 41 yo man from a Care Home with a h/o hypertension, seizure disorder (reports last seizure was 4 years ago), GERD, congenital deformity of hands and feet. He presented with complaints of generalized pain, including chest pains, and an episode or paralysis last night. He reports that he was lying in his bed when he suddenly became unable to move his body and stiff. His arms crossed across his chest and legs were extended out straight. He denies any loss of consciousness or seizure-like activity. He called for help and a home care manager in his [facility] responded and called EMS. The episode of paralysis lasted for approximately 30 minutes. -Transient paralysis, he denied seizure episodes because he reports being awake and alert: consult Neurology -Chest pain, atypical - ECG with NAF, Dasha negative for AMI; somewhat pleuritic and somewhat reproducible with palpation -HTN -H/o seizures - pt reports last seizure 4 years ago History Interval history: Patient was seen and examined. Follow-up on current diagnosis. Overnight uneventful. Patient denies any chest pain, shortness breath, nausea/vomiting or severe headaches. Imaging, nursing note, chart, labs and old chart reviewed. Discussed with patient. Hospitalist Physical - Physical exam Narrative exam: GEN: WDWN, NAD, Awake, Alert, Orientated HEENT: NCAT, EOMI, PERRL, OP Clear NECK: supple, no adenopathy, no thyromegaly, no JVD CVS/HEART: RRR, normal S1S2, pulses present bilaterally CHEST/LUNGS: CTA B, Symmetrical chest expansion, good air entry bilaterally GI/Abdomen: soft, NTND, good bowel sounds, no guarding or rebound /Bladder: no suprapubic tenderness, no CVA or paraspinal tenderness EXT/Skin: no c/c/e, no obvious rash, asymmetric finger and toes amputation. MSK: FROM x 4 Neuro: CN 2-12 grossly intact, no new focal deficits Psych: calm - Constitutional Vitals: Temp Pulse Resp BP Pulse Ox 98.0 F 75 17 123/82 97 11/27/17 19:41 11/27/17 20:40 11/27/17 20:40 11/27/17 19:41 11/27/17 20:28 General appearance: Present: no acute distress Results - Labs CBC & Chem 7: 11/26/17 21:34 11/26/17 21:34 Labs: Laboratory Last Values WBC 12.0 K/mm3 (4.5-11.0) H 11/26/17 21:34 RBC 5.20 M/mm3 (3.65-5.03) H 11/26/17 21:34 Hgb 16.8 gm/dl (11.8-15.2) H 11/26/17 21:34 Hct 47.9 % (35.5-45.6) H 11/26/17 21:34 MCV 92 fl (84-94) 11/26/17 21:34 MCH 32 pg (28-32) 11/26/17 21:34 MCHC 35 % (32-34) H 11/26/17 21:34 RDW 13.4 % (13.2-15.2) 11/26/17 21:34 Plt Count 218 K/mm3 (140-440) 11/26/17 21:34 Lymph % (Auto) 11.1 % (13.4-35.0) L 11/26/17 21:34 [place] % (Auto) 5.6 % (0.0-7.3) 11/26/17 21:34 Eos % (Auto) 0.8 % (0.0-4.3) 11/26/17 21:34 Baso % (Auto) 0.4 % (0.0-1.8) 11/26/17 21:34 Lymph # 1.3 K/mm3 (1.2-5.4) 11/26/17 21:34 [place] # 0.7 K/mm3 (0.0-0.8) 11/26/17 21:34 Eos # 0.1 K/mm3 (0.0-0.4) 11/26/17 21:34 Baso # 0.1 K/mm3 (0.0-0.1) 11/26/17 21:34 Seg Neutrophils % 82.1 % (40.0-70.0) H 11/26/17 21:34 Seg Neutrophils # 9.9 K/mm3 (1.8-7.7) H 11/26/17 21:34 D-Dimer 135.00 ng/mlDDU (0-234) 11/26/17 23:47 Sodium 135 mmol/L (137-145) L 11/26/17 21:34 Potassium 4.1 mmol/L (3.6-5.0) 11/26/17 21:34 Chloride 97.6 mmol/L (98-107) L 11/26/17 21:34 Carbon Dioxide 24 mmol/L (22-30) 11/26/17 21:34 Anion Gap 18 mmol/L 11/26/17 21:34 BUN 11 mg/dL (9-20) 11/26/17 21:34 Creatinine 0.7 mg/dL (0.8-1.5) L 11/26/17 21:34 Estimated GFR > 60 ml/min 11/26/17 21:34 BUN/Creatinine Ratio 16 % 11/26/17 21:34 Glucose 113 mg/dL (75-100) H 11/26/17 21:34 Calcium 9.3 mg/dL (8.4-10.2) 11/26/17 21:34 Total Creatine Kinase 178 units/L (55-170) H 11/27/17 08:50 CK-MB (CK-2) 2.5 ng/mL (0.0-4.0) 11/27/17 08:50 CK-MB (CK-2) Rel Index 1.4 (0-4) 11/27/17 08:50 Troponin T < 0.010 ng/mL (0.00-0.029) 11/27/17 08:50 Urine Color Straw (Yellow) 11/27/17 01:23 Urine Turbidity Clear (Clear) 11/27/17 01:23 Urine pH 6.0 (5.0-7.0) 11/27/17 01:23 Ur Specific [place] 1.002 (1.003-1.030) L 11/27/17 01:23 Urine Protein <15 mg/dl mg/dL (Negative) 11/27/17 01:23 Urine Glucose (UA) Neg mg/dL (Negative) 11/27/17 01:23 Urine Ketones Neg mg/dL (Negative) 11/27/17 01:23 Urine Blood Neg (Negative) 11/27/17 01:23 Urine Nitrite Neg (Negative) 11/27/17 01:23 Urine Bilirubin Neg (Negative) 11/27/17 01:23 Urine Urobilinogen < 2.0 mg/dL (<2.0) 11/27/17 01:23 Ur Leukocyte Esterase Sm (Negative) 11/27/17 01:23 Urine WBC (Auto) 4.0 /HPF (0.0-6.0) 11/27/17 01:23 Urine RBC (Auto) 1.0 /HPF (0.0-6.0) 11/27/17 01:23 U Epithel Cells (Auto) < 1.0 /HPF (0-13.0) 11/27/17 01:23 Salicylates < 0.3 mg/dL (2.8-20.0) L 11/26/17 21:34 Urine Opiates Screen Presumptive negative 11/27/17 01:23 Urine Methadone Screen Presumptive negative 11/27/17 01:23 Acetaminophen < 5.0 ug/mL (10.0-30.0) L 11/26/17 21:34 Ur Barbiturates Screen Presumptive negative 11/27/17 01:23 Ur Phencyclidine Scrn Presumptive negative 11/27/17 01:23 Ur Amphetamines Screen Presumptive negative 11/27/17 01:23 U Benzodiazepines Scrn Presumptive negative 11/27/17 01:23 Urine Cocaine Screen Presumptive negative 11/27/17 01:23 U Marijuana (THC) Screen Presumptive negative 11/27/17 01:23 Drugs of Abuse Note Disclamer 11/27/17 01:23 Plasma/Serum Alcohol < 0.01 % (0-0.07) 11/26/17 21:34
[2017-11-28 06:43] LABS: Basophils % (Auto) 0.6 % (0.0-1.8); Eosinophils # (Auto) 0.1 K/mm3 (0.0-0.4); Eosinophils % (Auto) 1.4 % (0.0-4.3); Hematocrit 46.9 % (35.5-45.6); Hemoglobin 16.3 gm/dl (11.8-15.2); Lymphocytes # (Auto) 1.6 K/mm3 (1.2-5.4); Lymphocytes % (Auto) 19.5 % (13.4-35.0); Mean Corpuscular HGB Conc 35 % (32-34); Mean Corpuscular Hemoglobin 32 pg (28-32); Mean Corpuscular Volume 93 fl (84-94); Monocytes # (Auto) 0.5 K/mm3 (0.0-0.8); Monocytes % (Auto) 6.2 % (0.0-7.3); Platelet Count 198 K/mm3 (140-440); Red Blood Count 5.07 M/mm3 (3.65-5.03); Red Cell Distribution Width 13.4 % (13.2-15.2)
[2017-11-28 06:54] LABS: BUN/Creatinine Ratio 14; Blood Urea Nitrogen 10 mg/dL (9-20); Calcium 9.1 mg/dL (8.4-10.2); Hemolysis Index 2
[2017-11-28] MEDS: BROVANA NEBU IH SCH ×2 (10:22→21:54)
[2017-11-28] MEDS: PULMICORT IH SCH ×2 (10:22→21:54)
--- NOTE | 2017-11-28 11:13 | Progress Note ---
Assessment and Plan Assessment: Transient neurological symptoms - neurology evaluation in progress Chest pain, atypical - ECG with NAF, Dasha negative for AMI; somewhat pleuritic and somewhat reproducible with palpation on initial evaluation, however, pt now denies any episode of chest pain HTN H/o seizures - pt reports last seizure 4 years ago Congenital deformity of hands and feet H/o cognitive impairment - pt is knocker off resident of a longterm Plan: Neurology evaluation in progress. Pt now denies any episode of chest pain. Pt's primary caregiver was contacted by Dr. Salgado and she also verified that pt had no chest pain. Currently stable cardiac status. No indication for echo or ischemic evaluation at this time. Will sign off. Please call if reevaluation is desired. Assessment and plan reviewed with pt at bedside. The patient has been seen in conjunction with Dr. Blake who agrees with the assessment and plan of care. Subjective Date of service: 11/28/17 Principal diagnosis: cp; transient neurological symptoms Interval history: pt resting comfortably in bed, no current cardiac complaints. no acute events reported overnight. Objective Last Vital Signs Temp 97.9 F 11/28/17 07:55 Pulse 65 11/28/17 07:55 Resp 20 11/28/17 07:55 BP 104/73 11/28/17 07:55 Pulse Ox 95 11/28/17 07:55 - Physical Examination General: No Apparent Distress HEENT: Positive: PERRL, Normocephaly, Mucus Membranes Moist Neck: Positive: neck supple, trachea midline Cardiac: Positive: Reg Rate and Rhythm, S1/S2 Lungs: Positive: clear to auscultation Neuro: Positive: Grossly Intact Abdomen: Positive: Soft. Negative: Tender Skin: Positive: Clear. Negative: Rash, Wound Musculoskeletal: No Fluid Collection, No Pain, Normal Range of Motion Extremities: Present: Other (congenital deformity of hands and feet) - Labs and Meds CBC 11/28/17 Range/Units 05:59 WBC 8.3 (4.5-11.0) K/mm3 RBC 5.07 H (3.65-5.03) M/mm3 Hgb 16.3 H (11.8-15.2) gm/dl Hct 46.9 H (35.5-45.6) % Plt Count 198 (140-440) K/mm3 Lymph # 1.6 (1.2-5.4) K/mm3 [place] # 0.5 (0.0-0.8) K/mm3 Eos # 0.1 (0.0-0.4) K/mm3 Baso # 0.0 (0.0-0.1) K/mm3 Comprehensive Metabolic Panel 11/28/17 Range/Units 05:59 Sodium 141 (137-145) mmol/L Potassium 3.6 (3.6-5.0) mmol/L Chloride 100.3 (98-107) mmol/L Carbon Dioxide 29 (22-30) mmol/L BUN 10 (9-20) mg/dL Creatinine 0.7 L (0.8-1.5) mg/dL Glucose 92 (75-100) mg/dL Calcium 9.1 (8.4-10.2) mg/dL - Imaging and Cardiology EKG: report reviewed, image reviewed - Telemetry EKG Rhythm: Sinus Rhythm - EKG Sinus rhythms and dysrhythmias: sinus rhythm
--- NOTE | 2017-11-28 11:18 | History and Physical Report ---
History of Present Illness Date of admission: 11/27/17 01:34 Past History Past Medical History: hyperlipidemia, seizures, other (cognitive impairment, congenital deformity of hands and feet) Medications and Allergies Allergies Allergy/AdvReac Type Severity Reaction Status Date / Time No Known Allergies Allergy Verified 10/08/16 16:13 Home Medications Medication Instructions Recorded Confirmed Last Taken Type Fluticasone/Salmeterol [Advair 1 puff IH BID 01/23/15 11/27/17 10/24/16 History Diskus 250-50 mcg] Benztropine [Cogentin] 1 mg PO BID tablet 01/28/15 11/27/17 10/23/16 Rx Sertraline [Zoloft] 100 mg PO QDAY tablet 01/28/15 11/27/17 10/23/16 Rx Tamsulosin [Flomax] 0.4 mg PO BID capsule 01/28/15 11/27/17 10/23/16 Rx ARIPiprazole [Abilify TAB] 15 mg PO DAILY 10/08/16 11/27/17 10/23/16 History Docusate Sodium [Colace] 100 mg PO BID 10/08/16 11/27/17 10/23/16 History Psyllium Husk [Metamucil] 0.52 gm PO DAILY 10/08/16 11/27/17 10/23/16 History diphenhydrAMINE [Benadryl CAP] 50 mg PO QHS 10/08/16 11/27/17 10/23/16 History levETIRAcetam [Keppra TAB] 1,000 mg PO BID 10/08/16 11/27/17 10/24/16 07:17 History Active Meds: Active Medications Acetaminophen (Tylenol) 650 mg PO Q4H PRN PRN Reason: Pain MILD(1-3)/Fever >100.5/NEUMANN Arformoterol Tartrate (Brovana Nebu) 15 mcg IH Q12HRT [facility] Last Admin: 11/28/17 10:22 Dose: 15 mcg Aripiprazole (Abilify) 15 mg PO DAILY [facility] Last Admin: 11/27/17 10:21 Dose: 15 mg Benztropine Mesylate (Cogentin) 1 mg PO BID [facility] Last Admin: 11/27/17 21:22 Dose: 1 mg Budesonide (Pulmicort) 0.5 mg IH Q12HRT [facility] Last Admin: 11/28/17 10:22 Dose: 0.5 mg Docusate Sodium (Colace) 100 mg PO BID [facility] Last Admin: 11/27/17 21:23 Dose: 100 mg Enoxaparin Sodium (Lovenox) 40 mg SUB-Q QDAY [facility] Last Admin: 11/27/17 10:22 Dose: 40 mg Levetiracetam (Keppra) 1,000 mg PO BID [facility] Last Admin: 11/27/17 21:22 Dose: 1,000 mg Ondansetron HCl (Zofran) 4 mg IV Q8H PRN PRN Reason: Nausea And Vomiting Oxycodone/Acetaminophen (Percocet 5/325) 1 tab PO Q6H PRN PRN Reason: Pain, Moderate (4-6) Last Admin: 11/27/17 10:22 Dose: 1 tab Sertraline HCl (Zoloft) 100 mg PO QDAY [facility] Last Admin: 11/27/17 11:42 Dose: 100 mg Sodium Chloride (Sodium Chloride Flush Syringe 10 Ml) 10 ml IV BID [facility] Last Admin: 11/27/17 21:22 Dose: 10 ml Sodium Chloride (Sodium Chloride Flush Syringe 10 Ml) 10 ml IV PRN PRN PRN Reason: LINE FLUSH Tamsulosin HCl (Flomax) 0.4 mg PO BID [facility] Last Admin: 11/27/17 21:23 Dose: 0.4 mg Physical Examination - Vital Signs Vital Signs: Vital Signs Temp Pulse Resp BP Pulse Ox 98.4 F 85 16 138/98 97 11/26/17 20:52 11/26/17 20:52 11/26/17 20:52 11/26/17 20:52 11/26/17 20:52 Results - Laboratory Findings CBC and BMP: 11/28/17 05:59 11/28/17 05:59 Abnormal Lab Findings: Abnormal Labs 11/26/17 11/26/17 11/26/17 21:34 21:34 21:34 WBC 12.0 H RBC 5.20 H Hgb 16.8 H Hct 47.9 H MCHC 35 H Lymph % (Auto) 11.1 L Seg Neutrophils % 82.1 H Seg Neutrophils # 9.9 H Sodium Chloride Creatinine Glucose Total Creatine Kinase Ur Specific [place] Salicylates < 0.3 L Acetaminophen < 5.0 L 11/26/17 11/27/17 11/27/17 21:34 01:23 02:57 WBC RBC Hgb Hct MCHC Lymph % (Auto) Seg Neutrophils % Seg Neutrophils # Sodium 135 L Chloride 97.6 L Creatinine 0.7 L Glucose 113 H Total Creatine Kinase 206 H Ur Specific [place] 1.002 L Salicylates Acetaminophen 11/27/17 11/28/17 11/28/17 08:50 05:59 05:59 WBC RBC 5.07 H Hgb 16.3 H Hct 46.9 H MCHC 35 H Lymph % (Auto) Seg Neutrophils % 72.3 H Seg Neutrophils # Sodium Chloride Creatinine 0.7 L Glucose Total Creatine Kinase 178 H Ur Specific [place] Salicylates Acetaminophen
[2017-11-28] MEDS: COLACE PO SCH ×2 (12:14→22:04)
[2017-11-28] MEDS: ZOLOFT PO SCH (12:14)
[2017-11-28] MEDS: KEPPRA PO SCH ×2 (12:14→22:04)
[2017-11-28] MEDS: LOVENOX SUB-Q SCH (12:15)
[2017-11-28] MEDS: COGENTIN PO SCH ×2 (12:15→22:04)
[2017-11-28] MEDS: SODIUM CHLORIDE FLUSH SYRINGE 10 ML IV SCH ×2 (12:16→21:58)
[2017-11-28] MEDS: FLOMAX PO SCH ×2 (12:20→22:04)
--- NOTE | 2017-11-28 16:53 | Progress Note ---
Assessment and Plan Assessment and plan: Patient is 41 yo man from a Nursing Home with a h/o hypertension, seizure disorder (reports last seizure was 4 years ago), GERD, congenital deformity of hands and feet. He presented with complaints of generalized pain, including chest pains, and an episode or paralysis last night. He reports that he was lying in his bed when he suddenly became unable to move his body and stiff. His arms crossed across his chest and legs were extended out straight. He denies any loss of consciousness or seizure-like activity. He called for help and a long term care social worker in his [facility] responded and called EMS. The episode of paralysis lasted for approximately 30 minutes. -Transient paralysis, he denied seizure episodes because he reports being awake and alert: consulted Neurology, see below -Chest pain, atypical - ECG with NAF, Dasha negative for AMI; somewhat pleuritic and somewhat reproducible with palpation -HTN: continue antihypertensives -H/o seizures - pt reports last seizure 4 years ago per Neurologist, "DX IMP: 1. 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 He was nevertheless mainstreamed through high school and graduated. His gait, spastic, has worsened over the past year, suggesting an on-going process. A high c-cord or posterior fossa misadventure is suspected. 2. hx of seizure disorder, (4 Sz in one day 4 years ago, none since) on Keppra 1000 mg BID. 3. No hx of chest pain, SOB, N or V. "this was a lie" according to patients long term care social worker, Ms Angie Leonard, with whom I spoke. "He just wanted to be evaluated for what has just happened to him" she said. Patient heard this conversation on speaker phone and agreed. RECC: 1. Will get head CT and CT neck (cannot do MRI because of metal plate installed over back of head to cover a congenital skull defect. 2. Have PT to see patient re gait eval. 3. See no need for cardiac eval - discussed with Cardiology Team and with Dr Bee 4. Go from there. Sarah Salgado MD" History Interval history: Patient was seen and examined. Follow-up on current diagnosis of paralysis, resolved. Overnight uneventful. Patient denies any chest pain, shortness breath , nausea/vomiting or severe headaches. Imaging, nursing note, chart, labs and old chart reviewed. Discussed with patient. Hospitalist Physical - Physical exam Narrative exam: GEN: WDWN, NAD, Awake, Alert, Orientated HEENT: NCAT, EOMI, PERRL, OP Clear NECK: supple, no adenopathy, no thyromegaly, no JVD CVS/HEART: RRR, normal S1S2, pulses present bilaterally CHEST/LUNGS: CTA B, Symmetrical chest expansion, good air entry bilaterally GI/Abdomen: soft, NTND, good bowel sounds, no guarding or rebound /Bladder: no suprapubic tenderness, no CVA or paraspinal tenderness EXT/Skin: no c/c/e, no obvious rash, asymmetric finger and toes amputation. MSK: FROM x 4 Neuro: CN 2-12 grossly intact, no new focal deficits Psych: calm - Constitutional Vitals: Temp Pulse Resp BP Pulse Ox 97.9 F 88 20 104/73 97 11/28/17 07:55 11/28/17 10:40 11/28/17 10:40 11/28/17 07:55 11/28/17 14:42 General appearance: Present: no acute distress Results - Labs CBC & Chem 7: 11/28/17 05:59 11/28/17 05:59 Labs: Laboratory Last Values WBC 8.3 K/mm3 (4.5-11.0) 11/28/17 05:59 RBC 5.07 M/mm3 (3.65-5.03) H 11/28/17 05:59 Hgb 16.3 gm/dl (11.8-15.2) H 11/28/17 05:59 Hct 46.9 % (35.5-45.6) H 11/28/17 05:59 MCV 93 fl (84-94) 11/28/17 05:59 MCH 32 pg (28-32) 11/28/17 05:59 MCHC 35 % (32-34) H 11/28/17 05:59 RDW 13.4 % (13.2-15.2) 11/28/17 05:59 Plt Count 198 K/mm3 (140-440) 11/28/17 05:59 Lymph % (Auto) 19.5 % (13.4-35.0) 11/28/17 05:59 [place] % (Auto) 6.2 % (0.0-7.3) 11/28/17 05:59 Eos % (Auto) 1.4 % (0.0-4.3) 11/28/17 05:59 Baso % (Auto) 0.6 % (0.0-1.8) 11/28/17 05:59 Lymph # 1.6 K/mm3 (1.2-5.4) 11/28/17 05:59 [place] # 0.5 K/mm3 (0.0-0.8) 11/28/17 05:59 Eos # 0.1 K/mm3 (0.0-0.4) 11/28/17 05:59 Baso # 0.0 K/mm3 (0.0-0.1) 11/28/17 05:59 Seg Neutrophils % 72.3 % (40.0-70.0) H 11/28/17 05:59 Seg Neutrophils # 6.0 K/mm3 (1.8-7.7) 11/28/17 05:59 D-Dimer 135.00 ng/mlDDU (0-234) 11/26/17 23:47 Sodium 141 mmol/L (137-145) 11/28/17 05:59 Potassium 3.6 mmol/L (3.6-5.0) 11/28/17 05:59 Chloride 100.3 mmol/L (98-107) 11/28/17 05:59 Carbon Dioxide 29 mmol/L (22-30) 11/28/17 05:59 Anion Gap 15 mmol/L 11/28/17 05:59 BUN 10 mg/dL (9-20) 11/28/17 05:59 Creatinine 0.7 mg/dL (0.8-1.5) L 11/28/17 05:59 Estimated GFR > 60 ml/min 11/28/17 05:59 BUN/Creatinine Ratio 14 % 11/28/17 05:59 Glucose 92 mg/dL (75-100) 11/28/17 05:59 Calcium 9.1 mg/dL (8.4-10.2) 11/28/17 05:59 Total Creatine Kinase 178 units/L (55-170) H 11/27/17 08:50 CK-MB (CK-2) 2.5 ng/mL (0.0-4.0) 11/27/17 08:50 CK-MB (CK-2) Rel Index 1.4 (0-4) 11/27/17 08:50 Troponin T < 0.010 ng/mL (0.00-0.029) 11/27/17 08:50 Urine Color Straw (Yellow) 11/27/17 01:23 Urine Turbidity Clear (Clear) 11/27/17 01:23 Urine pH 6.0 (5.0-7.0) 11/27/17 01:23 Ur Specific [place] 1.002 (1.003-1.030) L 11/27/17 01:23 Urine Protein <15 mg/dl mg/dL (Negative) 11/27/17 01:23 Urine Glucose (UA) Neg mg/dL (Negative) 11/27/17 01:23 Urine Ketones Neg mg/dL (Negative) 11/27/17 01:23 Urine Blood Neg (Negative) 11/27/17 01:23 Urine Nitrite Neg (Negative) 11/27/17 01:23 Urine Bilirubin Neg (Negative) 11/27/17 01:23 Urine Urobilinogen < 2.0 mg/dL (<2.0) 11/27/17 01:23 Ur Leukocyte Esterase Sm (Negative) 11/27/17 01:23 Urine WBC (Auto) 4.0 /HPF (0.0-6.0) 11/27/17 01:23 Urine RBC (Auto) 1.0 /HPF (0.0-6.0) 11/27/17 01:23 U Epithel Cells (Auto) < 1.0 /HPF (0-13.0) 11/27/17 01:23 Salicylates < 0.3 mg/dL (2.8-20.0) L 11/26/17 21:34 Urine Opiates Screen Presumptive negative 11/27/17 01:23 Urine Methadone Screen Presumptive negative 11/27/17 01:23 Acetaminophen < 5.0 ug/mL (10.0-30.0) L 11/26/17 21:34 Ur Barbiturates Screen Presumptive negative 11/27/17 01:23 Ur Phencyclidine Scrn Presumptive negative 11/27/17 01:23 Ur Amphetamines Screen Presumptive negative 11/27/17 01:23 U Benzodiazepines Scrn Presumptive negative 11/27/17 01:23 Urine Cocaine Screen Presumptive negative 11/27/17 01:23 U Marijuana (THC) Screen Presumptive negative 11/27/17 01:23 Drugs of Abuse Note Disclamer 11/27/17 01:23 Plasma/Serum Alcohol < 0.01 % (0-0.07) 11/26/17 21:34
--- NOTE | 2017-11-28 18:44 | Cat Scan Report ---
FINAL REPORT PROCEDURE: CT HEAD/BRAIN WO CON TECHNIQUE: Computerized tomography of the head was performed without contrast material. HISTORY: has congenital tetraparesis worsening COMPARISON: No prior studies are available for comparison. 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 There is diffuse dilatation of the ventricular system. No prior studies are available to evaluate the chronicity. There is cerebellar tonsillar ectopia. There is no evidence of acute hemorrhage or intracranial mass. There has been prior posterior midline craniectomy. Paranasal sinuses and mastoids are aerated. IMPRESSION: Developmental abnormalities as described above. There is diffuse dilatation of the ventricular system, of uncertain chronicity. Comparison to prior studies is necessary to evaluate for any acute changes.
--- NOTE | 2017-11-28 18:49 | Cat Scan Report ---
FINAL REPORT PROCEDURE: CT NECK WO CON TECHNIQUE: Computerized tomography of the soft tissue neck was performed without contrast material. This study is performed without intravascular contrast material and its sensitivity for pathology, including neoplasms, inflammation, abscess, free fluid, thrombosis, and arterial dissection, is reduced compared with a contrast enhanced study. HISTORY: congential tetraparesis, worsening COMPARISON: No prior studies are available for comparison. FINDINGS: Skull base: Congenital anomalies as described on the CT head Paranasal sinuses: Visualized portions are normal. Nasopharynx: Normal. Oral cavity: Normal. Epiglottis/vallecula: Normal. Larynx/pyriform sinuses: Normal. 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 Salivary glands: Normal. Upper thorax: Normal. The vertebral body heights and alignment of the cervical spine are maintained. There are mild degenerative disc changes predominantly from C3-4 through C5-6, with disc space narrowing and osteophyte formation. There is limited evaluation of the disc material IMPRESSION: No acute abnormality is identified
[2017-11-29] MEDS: PULMICORT IH SCH (08:06)
[2017-11-29] MEDS: BROVANA NEBU IH SCH (08:06)
--- NOTE | 2017-11-29 09:39 | Progress Note ---
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 No change in his neuro exam DX IMP: 1. 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 RECC: 1. Refer to Neurosurgery at [facility] for consideration of shunt installation. 2. I discussed the dx and plan with patient, with his father, Sang Frank, in [place] [phone], and with his healthcare interpreter, Ms Yamel Leonard, in the patients room. The patient should NOT live on the second floor of the home because if he fell on the stairs, this could be disasterous for him - fall risk. This was also made clear to all. 3. Discussed with Dr Bee as well, all at the same time. 4. Go from there. Call as needed. Sarah Salgado MD Objective - Vital Sign Vital Signs - 12hr 11/28/17 11/28/17 11/28/17 21:55 21:56 22:20 Temperature Pulse Rate Pulse Rate [ 84 85 Anterior Bilateral] Respiratory Rate Respiratory 18 18 Rate [Anterior Bilateral] Blood Pressure O2 Sat by Pulse 99 Oximetry 11/28/17 11/29/17 11/29/17 23:38 03:57 07:51 Temperature 97.9 F 97.8 F 98.2 F Pulse Rate 65 60 72 Pulse Rate [ Anterior Bilateral] Respiratory 16 16 18 Rate Respiratory Rate [Anterior Bilateral] Blood Pressure 109/75 122/85 128/83 O2 Sat by Pulse 96 99 97 Oximetry 11/29/17 11/29/17 08:06 08:16 Temperature Pulse Rate Pulse Rate [ 70 74 Anterior Bilateral] Respiratory Rate Respiratory 18 14 Rate [Anterior Bilateral] Blood Pressure O2 Sat by Pulse 98 Oximetry - Laboratory Findings CBC and BMP: 11/28/17 05:59 11/28/17 05:59 Abnormal Lab Findings: Abnormal Labs 11/26/17 11/26/17 11/26/17 21:34 21:34 21:34 WBC 12.0 H RBC 5.20 H Hgb 16.8 H Hct 47.9 H MCHC 35 H Lymph % (Auto) 11.1 L Seg Neutrophils % 82.1 H Seg Neutrophils # 9.9 H Sodium Chloride Creatinine Glucose Total Creatine Kinase Ur Specific [place] Salicylates < 0.3 L Acetaminophen < 5.0 L 11/26/17 11/27/17 11/27/17 21:34 01:23 02:57 WBC RBC Hgb Hct MCHC Lymph % (Auto) Seg Neutrophils % Seg Neutrophils # Sodium 135 L Chloride 97.6 L Creatinine 0.7 L Glucose 113 H Total Creatine Kinase 206 H Ur Specific [place] 1.002 L Salicylates Acetaminophen 11/27/17 11/28/17 11/28/17 08:50 05:59 05:59 WBC RBC 5.07 H Hgb 16.3 H Hct 46.9 H MCHC 35 H Lymph % (Auto) Seg Neutrophils % 72.3 H Seg Neutrophils # Sodium Chloride Creatinine 0.7 L Glucose Total Creatine Kinase 178 H Ur Specific [place] Salicylates Acetaminophen
[2017-11-29] MEDS: ABILIFY PO SCH ×2 (10:00→10:14)
[2017-11-29] MEDS: SODIUM CHLORIDE FLUSH SYRINGE 10 ML IV SCH (10:00)
[2017-11-29] MEDS: COGENTIN PO SCH (10:14)
[2017-11-29] MEDS: COLACE PO SCH (10:14)
[2017-11-29] MEDS: KEPPRA PO SCH (10:14)
[2017-11-29] MEDS: ZOLOFT PO SCH (10:14)
[2017-11-29] MEDS: FLOMAX PO SCH (10:15)
[2017-11-29] MEDS: LOVENOX SUB-Q SCH (10:15)
--- NOTE | 2017-11-29 14:02 | Discharge Summary ---
Providers - Providers Date of Admission: 11/27/17 01:34 Date of discharge: 11/29/17 Attending physician: HEMAL CRAIG 11/27/17 23:05 Consult to Physician [CONS] Routine Comment: Consulting Provider: TRACI SALGADO Physician Instructions: Reason For Exam: Transient paralysis, h/o sz, clearance for stress Primary care physician: [facility] Hospitalization Condition: Stable Hospital course: Patient is 41 yo man from a [facility] with a h/o hypertension, seizure disorder (reports last seizure was 4 years ago), GERD, congenital deformity of hands and feet. He presented with complaints of generalized pain, including chest pains, and an episode or paralysis last night. He reports that he was lying in his bed when he suddenly became unable to move his body and stiff. His arms crossed across his chest and legs were extended out straight. He denies any loss of consciousness or seizure-like activity. He called for help and a careers adviser in his senior living responded and called EMS. The episode of paralysis lasted for approximately 30 minutes. -Congenital schizencephaly -Chest pain, atypical - ECG with NAF, Dasha negative for AMI; msk in nature -HTN: continue antihypertensives -H/o seizures - pt reports last seizure 4 years ago 11/28/17 per Neurologist, "DX IMP: 1. 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 He was nevertheless mainstreamed through high school and graduated. His gait, spastic, has worsened over the past year, suggesting an on-going process. A high c-cord or posterior fossa misadventure is suspected. 2. hx of seizure disorder, (4 Sz in one day 4 years ago, none since) on Keppra 1000 mg BID. 3. No hx of chest pain, SOB, N or V. "this was a lie" according to patients careers adviser, Ms Angie Leonard, with whom I spoke. "He just wanted to be evaluated for what has just happened to him" she said. Patient heard this conversation on speaker phone and agreed. RECC: 1. Will get head CT and CT neck (cannot do MRI because of metal plate installed over back of head to cover a congenital skull defect. 2. Have PT to see patient re gait eval. 3. See no need for cardiac eval - discussed with Cardiology Team and with Dr rCaig 4. Go from there. and 11/29/17 "DX IMP: 1. 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 RECC: 1. Refer to Neurosurgery at [facility] for consideration of shunt installation. 2. I discussed the dx and plan with patient, with his father, Sang Frank, in [place] [phone], and with his intensive care anaesthetist, Ms Yamel Leonard, in the patients room. The patient should NOT live on the second floor of the home because if he fell on the stairs, this could be disasterous for him - fall risk. This was also made clear to all. 3. Discussed with Dr Craig as well, all at the same time. 4. Go from there. Call as needed." Sarah Salgado MD Disposition: DC- TO HOME OR SELFCARE Time spent for discharge: 35 minutes Core Measure Documentation - Palliative Care Palliative Care/ Comfort Measures: Not Applicable - Core Measures Any of the following diagnoses?: none - VTE Discharge Requirements Deep Vein Thrombosis/Pulmonary Embolism Present on Admission: No Has pt received <5 days of overlap therapy or INR<2.0: No Anticoagulant overlap therapy prescribed at discharge: No Contraindication No Overlap Therapy order at DC: Not Indicated Exam - Physical Exam Narrative exam: GEN: WDWN, NAD, Awake, Alert, Orientated HEENT: NCAT, EOMI, PERRL, OP Clear NECK: supple, no adenopathy, no thyromegaly, no JVD CVS/HEART: RRR, normal S1S2, pulses present bilaterally CHEST/LUNGS: CTA B, Symmetrical chest expansion, good air entry bilaterally GI/Abdomen: soft, NTND, good bowel sounds, no guarding or rebound /Bladder: no suprapubic tenderness, no CVA or paraspinal tenderness EXT/Skin: no c/c/e, no obvious rash, asymmetric finger and toes amputation. MSK: FROM x 4 Neuro: CN 2-12 grossly intact, no new focal deficits Psych: calm - Constitutional Vitals: Temp Pulse Resp BP Pulse Ox 98.2 F 74 14 128/83 98 11/29/17 07:51 11/29/17 08:16 11/29/17 08:16 11/29/17 07:51 11/29/17 08:06 Plan Activity: up only with assistance, fall precautions (Needs to sleep/live on ground level/first floor. ) Diet: regular Additional Instructions: Patient sleeping room needs to be on first floor because on fall risk. Make an appointment with. Department of Neurosurgery. [facility]. [address] [place] [address]. [id number]. [place] [address]. Department of Neurosurgery Office Numbers: . Fax: . If you are unable to make an appointment with [facility] then call Dr. Solis. ---->Please take imaging studies to the appointment Follow up with: LUIS E MARTINEZ MD [Primary Care Provider] - 3-5 Days AMISH SOLIS MD [Staff Physician] - 7 Days
[2017-11-29 15:13] VITALS: BP 125/81
== END 2017-11-29 17:15 | disposition home or self-care (01) ==
LOC: ED 20:44 → 4A 11-27 01:34 → 3A 11-27 10:34
PROVIDERS: ADMIT Internal Medicine; ATTEND Internal Medicine
DX: R07.89 Other chest pain (principal); G40.909 Epilepsy, unspecified, not intractable, without status epilepticus; J45.909 Unspecified asthma, uncomplicated; D72.829 Elevated white blood cell count, unspecified; F79 Unspecified intellectual disabilities
CPT/HCPCS: 36415; 70450; 70490; 71045; 80048; 80307; 81001; 82550; 82553; 84484; 85025; 85379; 87040; 93005; 93010; 93306; 94640; 96372; 96374; 96375; 99285; G0378; G0480; J1650; J2270; J2405; 80320

== ENCOUNTER 2017-12-11 22:45 | Emergency (ER) | payer MEDICARE ==
[2017-12-11] MEDS ORDERED: ASPIRIN PO ONE (23:44)
[2017-12-12 01:33] LABS: BUN/Creatinine Ratio 12; Blood Urea Nitrogen 7 mg/dL (9-20); Calcium 9.1 mg/dL (8.4-10.2); Hemolysis Index 73
[2017-12-12 02:04] LABS: Hemoglobin 16.6 gm/dl (11.8-15.2); Mean Corpuscular HGB Conc 35 % (32-34); Mean Corpuscular Hemoglobin 32 pg (28-32); Mean Corpuscular Volume 91 fl (84-94); Platelet Count 192 K/mm3 (140-440); Red Blood Count 5.15 M/mm3 (3.65-5.03); Red Cell Distribution Width 13.5 % (13.2-15.2)
--- NOTE | 2017-12-12 02:08 | XRay Report ---
FINAL REPORT EXAM: XR CHEST ROUTINE 2V HISTORY: chest pain COMPARISON: November 27, 2017. FINDINGS:: Frontal and lateral views of the chest obtained. Cardiac silhouette is within normal limits. No focal consolidation or effusion. No pneumothorax. Visualized bony thorax is grossly intact. IMPRESSION:: No acute findings.
[2017-12-12] MEDS ORDERED: ULTRAM PO ONE (02:26)
--- NOTE | 2017-12-12 03:01 | Emergency Department Report ---
ED Chest Pain HPI - General Chief Complaint: Chest Pain Stated Complaint: CP Time Seen by Provider: 12/12/17 02:10 Source: patient Mode of arrival: Ambulatory Limitations: No Limitations - History of Present Illness Initial Comments: Patient is a 41-year-old male with History of Schizophrenia Who Is Presenting with Chest Pain. Patient States He Was Sitting at His Care Home and Started Having Chest Pain at Rest. Patient States Is 10 Out Of 10 in Severity and Sharp. Patient Denies Any Pleuritic Component or Exertional Component. Patient Denies Any Cough Congestion and Fevers Chills Nausea Vomiting or Shortness of Breath at This Time. Patient Was Here 2 Weeks Ago for the Same Complaint. Patient Admitted to the Neurologist at That Time Did He Just Wanted to Leave the Care Home E Darlene Did Not Have Chest Pain at That Time. Patient Has Several Negative Troponins at That Time As Well As Negative D -Dimer. - Related Data Home Medications Medication Instructions Recorded Confirmed Last Taken Fluticasone/Salmeterol [Advair 1 puff IH BID 01/23/15 11/27/17 10/24/16 Diskus 250-50 mcg] ARIPiprazole [Abilify TAB] 15 mg PO DAILY 10/08/16 11/27/17 10/23/16 Docusate Sodium [Colace CAP] 100 mg PO BID 10/08/16 11/27/17 10/23/16 Psyllium Husk [Metamucil] 0.52 gm PO DAILY 10/08/16 11/27/17 10/23/16 diphenhydrAMINE [Benadryl CAP] 50 mg PO QHS 10/08/16 11/27/17 10/23/16 levETIRAcetam [Keppra TAB] 1,000 mg PO BID 10/08/16 11/27/17 10/24/16 07:17 Previous Rx's Medication Instructions Recorded Last Taken Type Benztropine [Cogentin] 1 mg PO BID tablet 01/28/15 10/23/16 Rx Sertraline [Zoloft] 100 mg PO QDAY tablet 01/28/15 10/23/16 Rx Tamsulosin [Flomax] 0.4 mg PO BID capsule 01/28/15 10/23/16 Rx Ibuprofen [Motrin] 600 mg PO Q8H PRN #14 tablet 12/12/17 Unknown Rx Allergies Allergy/AdvReac Type Severity Reaction Status Date / Time No Known Allergies Allergy Verified 12/11/17 23:40 Heart Score - HEART Score History: Slightly suspicious EKG: Normal Age: < 45 Risk factors: No known risk factors Troponin: < normal limit HEART Score: 0 ED Review of Systems ROS: Stated complaint: CP Other details as noted in HPI Comment: All other systems reviewed and negative ED Past Medical Hx - Past Medical History Previous Medical History?: Yes Hx Hypertension: Yes (X 16 YRS) Hx Congestive Heart Failure: No Hx Diabetes: No Hx GERD: Yes Hx Seizures: Yes (ON MEDS- LAST SEIZURE 2 YRS AGO) Hx Asthma: Yes (ON INHALERS) Hx COPD: No Additional medical history: legally blind. pneumonia - Surgical History Past Surgical History?: Yes Additional Surgical History: METAL PLATE in the back of his head. 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 thyroid surgery - Social History Smoking Status: Never Smoker Substance Use Type: None - Medications Home Medications: Home Medications Medication Instructions Recorded Confirmed Last Taken Type Fluticasone/Salmeterol [Advair 1 puff IH BID 01/23/15 11/27/17 10/24/16 History Diskus 250-50 mcg] Benztropine [Cogentin] 1 mg PO BID tablet 01/28/15 11/27/17 10/23/16 Rx Sertraline [Zoloft] 100 mg PO QDAY tablet 01/28/15 11/27/17 10/23/16 Rx Tamsulosin [Flomax] 0.4 mg PO BID capsule 01/28/15 11/27/17 10/23/16 Rx ARIPiprazole [Abilify TAB] 15 mg PO DAILY 10/08/16 11/27/17 10/23/16 History Docusate Sodium [Colace CAP] 100 mg PO BID 10/08/16 11/27/17 10/23/16 History Psyllium Husk [Metamucil] 0.52 gm PO DAILY 10/08/16 11/27/17 10/23/16 History diphenhydrAMINE [Benadryl CAP] 50 mg PO QHS 10/08/16 11/27/17 10/23/16 History levETIRAcetam [Keppra TAB] 1,000 mg PO BID 10/08/16 11/27/17 10/24/16 07:17 History Ibuprofen [Motrin] 600 mg PO Q8H PRN #14 tablet 12/12/17 Unknown Rx ED Physical Exam - General Limitations: No Limitations General appearance: alert, in no apparent distress - Head Head exam: Present: atraumatic, normocephalic - Eye Eye exam: Present: normal appearance - ENT ENT exam: Present: mucous membranes moist - Neck Neck exam: Present: normal inspection - Respiratory Respiratory exam: Present: normal lung sounds bilaterally. Absent: respiratory distress - Cardiovascular Cardiovascular Exam: Present: regular rate, normal rhythm. Absent: systolic murmur, diastolic murmur, rubs, gallop - GI/Abdominal GI/Abdominal exam: Present: soft, normal bowel sounds - Rectal Rectal exam: Present: deferred - Extremities Exam Extremities exam: Present: normal inspection - Back Exam Back exam: Present: normal inspection - Neurological Exam Neurological exam: Present: alert, oriented X3 - Psychiatric Psychiatric exam: Present: normal affect, normal mood - Skin Skin exam: Present: warm, dry, intact, normal color. Absent: rash ED Course Vital Signs 12/11/17 23:40 Temperature 98.1 F Pulse Rate 82 Respiratory 18 Rate Blood Pressure 133/88 O2 Sat by Pulse 16 L Oximetry GASTON score - Gaston Score Age > 65: (0) No Aspirin use within the Past 7 Days: (0) No 3 or more CAD Risk Factors: (1) Yes 2 or more Angina events in past 24 hrs: (0) No Known CAD with more than 50% Stenosis: (0) No Elevated Cardiac Markers: (0) No ST Deviation Greater than 0.5mm: (0) No GASTON Score: 1 ED Medical Decision Making - Lab Data Result diagrams: 12/12/17 00:32 12/12/17 00:32 - EKG Data -: EKG Interpreted by Me (EKG shows sinus rhythm a rate of 70 normal axes normal intervals no ST segm) - Radiology Data Radiology results: report reviewed Chest x-ray shows no acute process - Medical Decision Making Patient has very atypical symptoms at this time. Patient has normal EKG and negative troponin here today and patient will be discharged home. Critical care attestation.: If time is entered above; I have spent that time in minutes in the direct care of this critically ill patient, excluding procedure time. ED Disposition Clinical Impression: Atypical chest pain Disposition: DC-01 TO HOME OR SELFCARE Is pt being admited?: No Does the pt Need Aspirin: No Condition: Stable Instructions: Chest Pain (ED) Prescriptions: Ibuprofen [Motrin] 600 mg PO Q8H PRN #14 tablet PRN Reason: Pain Referrals: TUCKER RUSSELL MD [Primary Care Provider] - 3-5 Days
[2017-12-12] MEDS ORDERED: ASPIRIN ONE (03:10)
[2017-12-12 03:19] VITALS: BP 139/84
== END 2017-12-12 03:32 | disposition home or self-care (01) ==
LOC: ED 22:45
DX: R07.89 Other chest pain (principal); I10 Essential (primary) hypertension; K21.9 Gastro-esophageal reflux disease without esophagitis; J45.909 Unspecified asthma, uncomplicated
CPT/HCPCS: 36415; 71046; 80048; 84484; 85025; 93005; 93010; 99284

== ENCOUNTER 2017-12-17 21:07 | Emergency (ER) | payer MEDICARE ==
--- NOTE | 2017-12-18 09:49 | Emergency Department Report ---
ED Anxiety HPI - General Chief Complaint: Anxiety Stated Complaint: CHEST PAIN Time Seen by Provider: 12/18/17 08:46 Source: patient, EMS Mode of arrival: Stretcher - History of Present Illness Initial Comments: 41-year-old male past medical history seizures, asthma, GERD, atypical chest pain, brain surgery, ?mental retardation presents with complaint of episode of 30 minutes of anxiety with chest discomfort last night. Patient is currently awake alert and oriented 3. States that he was in a domestic argument with his [id number] and he became very anxious afterward. States he felt chest discomfort and very anxious for approximately 30 minutes. Has since gone away. Patient does not feel any anxiety at this time. Denies any suicidal or homicidal ideation. Is fully lucid and cooperative. Does not appear to be in any acute distress. Has not had an episode of chest pain since this 30 minute episode last night. Patient states he was evaluated within the last 1-2 months for chest pain. MD Complaint: anxiety -: Last night Symptoms: chest pain Place: home Previous History of Same: Yes Severity: mild Quality: similar to prior episodes Provoking factors: emotional stress Improves With: nothing Worsens With: thinking about event Associated symptoms: chest pain - Related Data Home Medications: Home Medications Medication Instructions Recorded Confirmed Last Taken Fluticasone/Salmeterol [Advair 1 puff IH BID 01/23/15 12/18/17 12/17/17 Diskus 250-50 mcg] Docusate Sodium [Colace CAP] 100 mg PO BID 10/08/16 12/18/17 12/17/17 Psyllium Husk [Metamucil] 0.52 gm PO DAILY 10/08/16 12/18/17 12/17/17 diphenhydrAMINE [Benadryl CAP] 50 mg PO QHS 10/08/16 12/18/17 12/17/17 levETIRAcetam [Keppra TAB] 1,000 mg PO BID 10/08/16 12/18/17 12/17/17 Omeprazole 20 mg PO DAILY 12/18/17 12/18/17 12/17/17 traZODone [Desyrel] 100 mg PO QHS 12/18/17 12/18/17 12/17/17 Previous Rx's Medication Instructions Recorded Last Taken Type Sertraline [Zoloft] 100 mg PO QDAY tablet 01/28/15 12/17/17 Rx Tamsulosin [Flomax] 0.4 mg PO BID capsule 01/28/15 12/17/17 Rx Ibuprofen [Motrin] 600 mg PO Q8H PRN #14 tablet 12/12/17 12/17/[address] [place]/M-Cryst 100 mg PO Q12HR #11 capsule 12/20/17 Unknown Rx [Macrobid CAP] Sertraline [Zoloft] 100 mg PO QDAY #30 tablet 12/20/17 Unknown Rx traZODone [Desyrel] 100 mg PO QHS #30 tablet 12/20/17 Unknown Rx Allergies/Adverse Reactions: Allergies Allergy/AdvReac Type Severity Reaction Status Date / Time No Known Allergies Allergy Verified 12/11/17 23:40 ED Review of Systems ROS: Stated complaint: CHEST PAIN Other details as noted in HPI Constitutional: denies: chills, fever Eyes: denies: eye pain, eye discharge, vision change ENT: denies: ear pain, throat pain Respiratory: denies: cough, shortness of breath, wheezing Cardiovascular: denies: chest pain, palpitations Endocrine: no symptoms reported Gastrointestinal: denies: abdominal pain, nausea, diarrhea Genitourinary: denies: urgency, dysuria Musculoskeletal: denies: back pain, joint swelling, arthralgia Skin: denies: rash, lesions Neurological: denies: headache, weakness, paresthesias Psychiatric: anxiety, suicidal thoughts. denies: depression Hematological/Lymphatic: denies: easy bleeding, easy bruising ED Past Medical Hx - Past Medical History Hx Hypertension: Yes (X 16 YRS) Hx Congestive Heart Failure: No Hx Diabetes: No Hx GERD: Yes Hx Seizures: Yes (ON MEDS- LAST SEIZURE 2 YRS AGO) Hx Asthma: Yes (ON INHALERS) Hx COPD: No Additional medical history: legally blind. pneumonia - Surgical History Additional Surgical History: METAL PLATE in the back of his head. 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 thyroid surgery - Social History Smoking Status: Never Smoker Substance Use Type: None - Medications Home Medications: Home Medications Medication Instructions Recorded Confirmed Last Taken Type Fluticasone/Salmeterol [Advair 1 puff IH BID 01/23/15 12/18/17 12/17/17 History Diskus 250-50 mcg] Sertraline [Zoloft] 100 mg PO QDAY tablet 01/28/15 12/18/17 12/17/17 Rx Tamsulosin [Flomax] 0.4 mg PO BID capsule 01/28/15 12/18/17 12/17/17 Rx Docusate Sodium [Colace CAP] 100 mg PO BID 10/08/16 12/18/17 12/17/17 History Psyllium Husk [Metamucil] 0.52 gm PO DAILY 10/08/16 12/18/17 12/17/17 History diphenhydrAMINE [Benadryl CAP] 50 mg PO QHS 10/08/16 12/18/17 12/17/17 History levETIRAcetam [Keppra TAB] 1,000 mg PO BID 10/08/16 12/18/17 12/17/17 History Ibuprofen [Motrin] 600 mg PO Q8H PRN #14 tablet 12/12/17 12/18/17 12/17/17 Rx Omeprazole 20 mg PO DAILY 12/18/17 12/18/17 12/17/17 History traZODone [Desyrel] 100 mg PO QHS 12/18/17 12/18/17 12/17/[address] [place]/M-Cryst 100 mg PO Q12HR #11 capsule 12/20/17 Unknown Rx [Macrobid CAP] Sertraline [Zoloft] 100 mg PO QDAY #30 tablet 12/20/17 Unknown Rx traZODone [Desyrel] 100 mg PO QHS #30 tablet 12/20/17 Unknown Rx ED Physical Exam - General Limitations: No Limitations General appearance: alert, in no apparent distress - Head Head exam: Present: atraumatic, normocephalic - Eye Eye exam: Present: normal appearance - ENT ENT exam: Present: mucous membranes moist - Neck Neck exam: Present: normal inspection - Respiratory Respiratory exam: Present: normal lung sounds bilaterally. Absent: respiratory distress - Cardiovascular Cardiovascular Exam: Present: regular rate, normal rhythm. Absent: systolic murmur, diastolic murmur, rubs, gallop - GI/Abdominal GI/Abdominal exam: Present: soft, normal bowel sounds - Rectal Rectal exam: Present: deferred - Extremities Exam Extremities exam: Present: normal inspection - Back Exam Back exam: Present: normal inspection - Neurological Exam Neurological exam: Present: alert, oriented X3 - Psychiatric Psychiatric exam: Present: depressed, anxious, suicidal ideation - Skin Skin exam: Present: warm, dry, intact, normal color. Absent: rash ED Course Vital Signs 12/17/17 12/18/17 12/18/17 21:12 04:05 08:19 Temperature 98.3 F 97.6 F 97.8 F Pulse Rate 94 H 65 71 Respiratory 18 16 18 Rate Blood Pressure 140/87 138/96 121/91 Blood Pressure [Right] O2 Sat by Pulse 97 99 100 Oximetry 12/18/17 12/18/17 12/18/17 09:50 13:17 20:00 Temperature 98.4 F Pulse Rate 90 Respiratory 16 18 20 Rate Blood Pressure Blood Pressure [Right] O2 Sat by Pulse 98 99 Oximetry 12/18/17 12/19/17 12/19/17 20:25 08:00 20:00 Temperature 98.2 F 97.9 F 98.6 F Pulse Rate 88 72 69 Respiratory 22 16 18 Rate Blood Pressure Blood Pressure 143/86 118/81 129/88 [Right] O2 Sat by Pulse 99 98 95 Oximetry 12/20/17 12/20/17 09:01 10:42 Temperature 98.4 F Pulse Rate 81 Respiratory 20 Rate Blood Pressure Blood Pressure 135/80 [Right] O2 Sat by Pulse 100 100 Oximetry ED Medical Decision Making - Lab Data Result diagrams: 12/18/17 09:42 12/18/17 09:52 - Medical Decision Making A/P: Anxiety, chest pain, suicidal ideation UPDATE as of 12PM 12/18/17 - Patient expressed suicidal ideation to Mr. Cook nurse in fast track. I was preparing to discharge the patient but spoke to him once again and patient expressed that he is suicidal and wishes to right now. Patient states that he will jump into traffic or jump over a bridge. As per patient's general assignment reporter Ms. Montesinos who patient was actively on the phone with patient immediately had expressed suicidal ideation to her. Patient will be held in ED until patient can be assessed by mental health clinician. I informed charge nurse Minerva and of patient's current status 1-EKG unchanged 2, troponin negative, labs otherwise unremarkable. Heart Score 1 point. Low Score (0-3 points) .Risk of MACE of 0.9-1.7%. As per medical documentation on [employer] patient was assessed by flatbed stitcher Dr. Gomez on 11/28. As per flatbed stitcher documentation no indication for echo or catheterization at that time. Patient does not have any chest pain at this time. Patient evaluated for atypical chest pain at that time. As patient is low risk for adverse cardiac outcome at this time based on risk stratification patient can follow-up with outpatient cardiology. 2-pt reports shortness of breath, palpitations, pleuritic chest pain or substernal chest pain upon my reassessment 3-case discussed with Dr. Grey 4-PERC Rule negative. vital signs stable Critical care attestation.: If time is entered above; I have spent that time in minutes in the direct care of this critically ill patient, excluding procedure time. ED Disposition Clinical Impression: Mood disorder Chest pain Qualifiers: Chest pain type: unspecified Qualified Code(s): R07.9 - Chest pain, unspecified Disposition: TO HOME OR SELFCARE Is pt being admited?: No Does the pt Need Aspirin: No Condition: Stable Instructions: Chest Pain (ED), Anxiety (ED) Additional Instructions: Take medications as directed. Follow up with the primary care doctor within the next month. Follow up with a flatbed stitcher within the next month. Return to the ER right away with new pain, worsened pain, migration of pain, fevers, chills, lethargy, irritability, projectile vomiting, change in mental status, confusion, inability to tolerate liquid feeds. Prescriptions: traZODone [Desyrel] 100 mg PO QHS #[address] [facility]/M-Cryst [Macrobid CAP] 100 mg PO Q12HR #11 capsule Sertraline [Zoloft] 100 mg PO QDAY #30 tablet Referrals: TUCKER RUSSELL MD [Primary Care Provider] - 3-5 Days [facility] [Provider Group] - 3-5 Days Time of Disposition: 11:21
[2017-12-18 10:16] LABS: Basophils # (Auto) 0.1 K/mm3 (0.0-0.1); Basophils % (Auto) 0.7 % (0.0-1.8); Eosinophils % (Auto) 0.5 % (0.0-4.3); Hematocrit 47.5 % (35.5-45.6); Hemoglobin 16.5 gm/dl (11.8-15.2); Lymphocytes # (Auto) 1.2 K/mm3 (1.2-5.4); Lymphocytes % (Auto) 15.4 % (13.4-35.0); Mean Corpuscular HGB Conc 35 % (32-34); Mean Corpuscular Hemoglobin 32 pg (28-32); Mean Corpuscular Volume 92 fl (84-94); Monocytes # (Auto) 0.5 K/mm3 (0.0-0.8); Platelet Count 215 K/mm3 (140-440); Red Blood Count 5.18 M/mm3 (3.65-5.03); Red Cell Distribution Width 13.6 % (13.2-15.2)
[2017-12-18 10:22] LABS: BUN/Creatinine Ratio 15; Blood Urea Nitrogen 9 mg/dL (9-20); Calcium 9.3 mg/dL (8.4-10.2); Hemolysis Index 9
[2017-12-18 10:24] LABS: Creatine Kinase MB 3.1 ng/mL (0.0-4.0)
[2017-12-18] MEDS ORDERED: ATIVAN IM PRN (12:38)
[2017-12-18] MEDS ORDERED: HALDOL IM PRN (12:38)
--- NOTE | 2017-12-18 12:58 | XRay Report ---
ROUTINE CHEST, TWO VIEWS: HISTORY: chest pain. The trachea, heart, mediastinal contour, lung agustin and bony thorax are unremarkable. Thoracic spondylosis is noted. No significant change since 12/12/17. IMPRESSION: No acute cardiopulmonary process identified.
--- NOTE | 2017-12-18 14:05 | Event Note ---
Date: 12/18/17 Presented with initial chest pain, unremarkable and objectively normal emergency room workup, recently admitted to the hospital for chest pain, no further ischemic evaluation recommended by cardiology, low risk by DOMINIQUE score, Wells criteria, perc negative. Towards the end of his evaluation developed suicidality. There appears to be a very significant anxiety component here. The patient is placed on a 1013. His other laboratory studies were unremarkable, and the patient is calm and cooperative although quite anxious. At this point in time, there does not appear to be in immediate medical contraindication to psychiatric admission, evaluation and consultation. However, the patient also has a history of developmental delay, and may not benefit from inpatient psychiatric hospitalization. I will defer to the psychiatric team to make further recommendations on this. Vital Signs 12/17/17 12/18/17 12/18/17 21:12 04:05 08:19 Temperature 98.3 F 97.6 F 97.8 F Pulse Rate 94 H 65 71 Respiratory 18 16 18 Rate Blood Pressure 140/87 138/96 121/91 O2 Sat by Pulse 97 99 100 Oximetry 12/18/17 09:50 Temperature Pulse Rate Respiratory 16 Rate Blood Pressure O2 Sat by Pulse Oximetry Lab Results 12/18/17 12/18/17 12/18/17 Range/Units 09:42 09:52 12:45 WBC 7.8 (4.5-11.0) K/mm3 RBC 5.18 H (3.65-5.03) M/mm3 Hgb 16.5 H (11.8-15.2) gm/dl Hct 47.5 H (35.5-45.6) % MCV 92 (84-94) fl MCH 32 (28-32) pg MCHC 35 H (32-34) % RDW 13.6 (13.2-15.2) % Plt Count 215 (140-440) K/mm3 Lymph % (Auto) 15.4 (13.4-35.0) % Ware % (Auto) 7.0 (0.0-7.3) % Eos % (Auto) 0.5 (0.0-4.3) % Baso % (Auto) 0.7 (0.0-1.8) % Lymph # 1.2 (1.2-5.4) K/mm3 Ware # 0.5 (0.0-0.8) K/mm3 Eos # 0.0 (0.0-0.4) K/mm3 Baso # 0.1 (0.0-0.1) K/mm3 Seg Neutrophils % 76.4 H (40.0-70.0) % Seg Neutrophils # 6.0 (1.8-7.7) K/mm3 Sodium 141 (137-145) mmol/L Potassium 4.1 (3.6-5.0) mmol/L Chloride 101.8 (98-107) mmol/L Carbon Dioxide 28 (22-30) mmol/L Anion Gap 15 mmol/L BUN 9 (9-20) mg/dL Creatinine 0.6 L (0.8-1.5) mg/dL Estimated GFR > 60 ml/min BUN/Creatinine Ratio 15 % Glucose 93 (75-100) mg/dL Calcium 9.3 (8.4-10.2) mg/dL Total Creatine Kinase 188 H (55-170) units/L CK-MB (CK-2) 3.1 (0.0-4.0) ng/mL Troponin T < 0.010 (0.00-0.029) ng/mL Salicylates (2.8-20.0) mg/dL Acetaminophen (10.0-30.0) ug/mL Plasma/Serum Alcohol (0-0.07) % 12/18/17 12/18/17 12/18/17 Range/Units 12:45 12:45 12:45 WBC (4.5-11.0) K/mm3 RBC (3.65-5.03) M/mm3 Hgb (11.8-15.2) gm/dl Hct (35.5-45.6) % MCV (84-94) fl MCH (28-32) pg MCHC (32-34) % RDW (13.2-15.2) % Plt Count (140-440) K/mm3 Lymph % (Auto) (13.4-35.0) % Ware % (Auto) (0.0-7.3) % Eos % (Auto) (0.0-4.3) % Baso % (Auto) (0.0-1.8) % Lymph # (1.2-5.4) K/mm3 Ware # (0.0-0.8) K/mm3 Eos # (0.0-0.4) K/mm3 Baso # (0.0-0.1) K/mm3 Seg Neutrophils % (40.0-70.0) % Seg Neutrophils # (1.8-7.7) K/mm3 Sodium (137-145) mmol/L Potassium (3.6-5.0) mmol/L Chloride (98-107) mmol/L Carbon Dioxide (22-30) mmol/L Anion Gap mmol/L BUN (9-20) mg/dL Creatinine (0.8-1.5) mg/dL Estimated GFR ml/min BUN/Creatinine Ratio % Glucose (75-100) mg/dL Calcium (8.4-10.2) mg/dL Total Creatine Kinase (55-170) units/L CK-MB (CK-2) (0.0-4.0) ng/mL Troponin T (0.00-0.029) ng/mL Salicylates < 0.3 L (2.8-20.0) mg/dL Acetaminophen < 5.0 L (10.0-30.0) ug/mL Plasma/Serum Alcohol < 0.01 (0-0.07) %
[2017-12-18] MEDS: KEPPRA PO SCH (22:16)
[2017-12-18] MEDS: DESYREL PO SCH (22:16)
[2017-12-19 07:21] LABS: Bilirubin,Urine NEG (Negative); Blood,Urine NEG (Negative); Color,Urine Yellow (Yellow); Mucus,Urine FEW /HPF; Protein,Urine <15 mg/dL mg/dL (Negative); Urobilinogen,Urine < 2.0 mg/dL (<2.0)
[2017-12-19 07:23] LABS: WBC,Urine > 182.0 /HPF (0.0-6.0)
[2017-12-19 07:27] LABS: Amphetamine Screen,Urine PRESUMPTIVE NEGATIVE; Benzodiazepines Screen,Urine PRESUMPTIVE NEGATIVE; Cannabinoid Screen,Urine PRESUMPTIVE NEGATIVE; Cocaine Screen,Urine PRESUMPTIVE NEGATIVE; Methadone Screen,Urine PRESUMPTIVE NEGATIVE; Opiate Screen,Urine PRESUMPTIVE NEGATIVE
[2017-12-19] MEDS: KEPPRA PO SCH ×2 (10:42→22:15)
[2017-12-19] MEDS: ZOLOFT PO SCH (11:09)
[2017-12-19] MEDS: MACROBID PO SCH ×2 (12:11→22:15)
--- NOTE | 2017-12-19 16:48 | Consultation ---
History of Present Illness - Reason for Consult Consult date: 12/19/17 Reason for consult: Mental Health Evaluation Requesting physician: YOVANNY DOLAN - Chief Complaint Chief complaint: "I am okay now" - History of Present Psychiatric Illness 41 y.o. white male presenting to the ER for chest pain. The patient was being prepared for discharged and stated that he was suicidal. Today the patient is calm and cooperative during the assessment. He stated getting into an argument with his brother that angered him. He stated that he wanted to kill himself yesterday because he didn't like the things his brother said to him. He acknowledged a hx of depression and currently take antidepressants. He stated that he is seen at [facility] for outpatient psy services. He stated that he isn't angry anymore and would like to return to his custodial. He denies SI/HI's and AVh's. He denies any manic episodes in the past. He denies recreational drug use and alcohol consumption (etoh). Medications and Allergies Allergies Allergy/AdvReac Type Severity Reaction Status Date / Time No Known Allergies Allergy Verified 12/11/17 23:40 Home Medications Medication Instructions Recorded Confirmed Last Taken Type Fluticasone/Salmeterol [Advair 1 puff IH BID 01/23/15 12/18/17 12/17/17 History Diskus 250-50 mcg] Sertraline [Zoloft] 100 mg PO QDAY tablet 01/28/15 12/18/17 12/17/17 Rx Tamsulosin [Flomax] 0.4 mg PO BID capsule 01/28/15 12/18/17 12/17/17 Rx Docusate Sodium [Colace CAP] 100 mg PO BID 10/08/16 12/18/17 12/17/17 History Psyllium Husk [Metamucil] 0.52 gm PO DAILY 10/08/16 12/18/17 12/17/17 History diphenhydrAMINE [Benadryl CAP] 50 mg PO QHS 10/08/16 12/18/17 12/17/17 History levETIRAcetam [Keppra TAB] 1,000 mg PO BID 10/08/16 12/18/17 12/17/17 History Ibuprofen [Motrin] 600 mg PO Q8H PRN #14 tablet 12/12/17 12/18/17 12/17/17 Rx Omeprazole 20 mg PO DAILY 12/18/17 12/18/17 12/17/17 History traZODone [Desyrel] 100 mg PO QHS 12/18/17 12/18/17 12/17/17 History Active Meds: Active Medications Haloperidol Lactate (Haldol) 5 mg IM Q6HR PRN PRN Reason: Agitation Levetiracetam (Keppra) 1,000 mg PO BID [facility] Last Admin: 12/19/17 10:42 Dose: 1,000 mg Lorazepam (Ativan) 2 mg IM Q4HR PRN PRN Reason: Agitation Last Admin: 12/18/17 20:21 Dose: 2 mg Nitrofurantoin Macrocrystals (Macrobid) 100 mg PO BID [facility] Stop: 12/25/17 22:01 Last Admin: 12/19/17 12:11 Dose: 100 mg Sertraline HCl (Zoloft) 100 mg PO QDAY [facility] Last Admin: 12/19/17 11:09 Dose: 100 mg Trazodone HCl (Desyrel) 100 mg PO QHS [facility] Last Admin: 12/18/17 22:16 Dose: 100 mg Past psychiatric history - Past Medical History Past Medical History: seizures Past Surgical History: No surgical history - past Psychiatric treatment and history Psych: Depression psychiatric treatment history: Inpatient at [facility] in the past. The patient cannot confirm or deny a fam psy hx. - Social History Social history: other (Reside at a custodial) Mental Status Exam - Vital signs Last Vital Signs Temp 97.9 F 12/19/17 08:00 Pulse 72 12/19/17 08:00 Resp 16 12/19/17 08:00 BP 118/81 12/19/17 08:00 Pulse Ox 98 12/19/17 08:00 - Exam Narrative exam: MSE: Appearance: calm, cooperative Behavior: regular eye contact Speech: regular rate and tone Mood: "okay" Affect: normal Thought Process: circumstantial Thought Content: denies SI/HI's and AVH's Motor Activity: lying in bed Cognition: A/O x 3 Insight: variable Judgment: variable Results Result Diagrams: 12/18/17 09:42 12/18/17 09:52 Abnormal lab results 05/31/18 Range/Units 06:40 Urine WBC (Auto) > 182.0 H (0.0-6.0) /HPF All other labs normal. Assessment and Plan Assessment and plan: Impression: Hx of Depression. Unspecified Intellectual Disability. Today the patient is calm and cooperative during the assessment. Recommendation/Plans: evaluate 1013 in 24 hours to determine proper dispo. Continue current medication regimen (Trazodone and Zoloft). Discussed possible suicidality/medication induced deon reference antidepressants.
[2017-12-19] MEDS ORDERED: ULTRAM PO ONE (17:18)
[2017-12-19] MEDS ORDERED: TORADOL IM ONE (22:05)
[2017-12-19] MEDS: DESYREL PO SCH (22:15)
[2017-12-20 10:44] VITALS: BP 135/80
[2017-12-20] MEDS: ZOLOFT PO SCH (11:25)
[2017-12-20] MEDS: MACROBID PO SCH (11:25)
[2017-12-20] MEDS: KEPPRA PO SCH (11:30)
--- NOTE | 2017-12-20 12:25 | Progress Note ---
Subjective - Reason for Consult Consult date: 12/20/17 Reason for consult: Psychiatry Follow-up - Chief Complaint Chief complaint: "Hello" 41 y.o. white male presenting to the ER for chest pain. The patient was being prepared for discharged and stated that he was suicidal. Today the patient is calm and cooperative during the assessment. He is adamant that he was upset and frustrated when he made the suicidal statement to hospital staff. He denies SI/ HI's and AVH's. He denies any side effects of his medications. Per the staff, no behavioral disturbance overnight. Mental Status Exam - Vital signs Last Vital Signs Temp 98.4 F 12/20/17 10:42 Pulse 81 12/20/17 10:42 Resp 20 12/20/17 10:42 BP 135/80 12/20/17 10:42 Pulse Ox 100 12/20/17 10:42 - Exam Narrative exam: MSE: Appearance: calm, cooperative Behavior: regular eye contact Speech: regular rate and tone Mood: "okay" Affect: normal Thought Process: logical Thought Content: denies SI/HI's and AVH's Motor Activity: lying in bed Cognition: A/O x 3 Insight: appropriate Judgment: appropriate Assessment and Plan Impression: Hx of Depression. Unspecified Intellectual Disability. Today the patient is calm and cooperative during the assessment. Recommendation/Plans: Rescind 1013. Continue current medication regimen Trazodone 100 mg PO HS and Zoloft 100 mg PO daily. Discussed possible suicidality/medication induced deon reference antidepressants. The patient can follow up with [facility] for outpatient psy services.
--- NOTE | 2017-12-20 12:59 | Event Note ---
Date: 12/20/17 The patient has been cleared by the psychiatry team. His 1013 has been discontinued. The patient has been medically stable while under observation in the emergency department. Outpatient medications will be continued. Vital Signs 12/17/17 12/18/17 12/18/17 21:12 04:05 08:19 Temperature 98.3 F 97.6 F 97.8 F Pulse Rate 94 H 65 71 Respiratory 18 16 18 Rate Blood Pressure 140/87 138/96 121/91 Blood Pressure [Right] O2 Sat by Pulse 97 99 100 Oximetry 12/18/17 12/18/17 12/18/17 09:50 13:17 20:00 Temperature 98.4 F Pulse Rate 90 Respiratory 16 18 20 Rate Blood Pressure Blood Pressure [Right] O2 Sat by Pulse 98 99 Oximetry 12/18/17 12/19/17 12/19/17 20:25 08:00 20:00 Temperature 98.2 F 97.9 F 98.6 F Pulse Rate 88 72 69 Respiratory 22 16 18 Rate Blood Pressure Blood Pressure 143/86 118/81 129/88 [Right] O2 Sat by Pulse 99 98 95 Oximetry 12/20/17 12/20/17 09:01 10:42 Temperature 98.4 F Pulse Rate 81 Respiratory 20 Rate Blood Pressure Blood Pressure 135/80 [Right] O2 Sat by Pulse 100 100 Oximetry Lab Results 12/18/17 12/18/17 12/18/17 Range/Units 09:42 09:52 12:45 WBC 7.8 (4.5-11.0) K/mm3 RBC 5.18 H (3.65-5.03) M/mm3 Hgb 16.5 H (11.8-15.2) gm/dl Hct 47.5 H (35.5-45.6) % MCV 92 (84-94) fl MCH 32 (28-32) pg MCHC 35 H (32-34) % RDW 13.6 (13.2-15.2) % Plt Count 215 (140-440) K/mm3 Lymph % (Auto) 15.4 (13.4-35.0) % [place] % (Auto) 7.0 (0.0-7.3) % Eos % (Auto) 0.5 (0.0-4.3) % Baso % (Auto) 0.7 (0.0-1.8) % Lymph # 1.2 (1.2-5.4) K/mm3 [place] # 0.5 (0.0-0.8) K/mm3 Eos # 0.0 (0.0-0.4) K/mm3 Baso # 0.1 (0.0-0.1) K/mm3 Seg Neutrophils % 76.4 H (40.0-70.0) % Seg Neutrophils # 6.0 (1.8-7.7) K/mm3 Sodium 141 (137-145) mmol/L Potassium 4.1 (3.6-5.0) mmol/L Chloride 101.8 (98-107) mmol/L Carbon Dioxide 28 (22-30) mmol/L Anion Gap 15 mmol/L BUN 9 (9-20) mg/dL Creatinine 0.6 L (0.8-1.5) mg/dL Estimated GFR > 60 ml/min BUN/Creatinine Ratio 15 % Glucose 93 (75-100) mg/dL Calcium 9.3 (8.4-10.2) mg/dL Total Creatine Kinase 188 H (55-170) units/L CK-MB (CK-2) 3.1 (0.0-4.0) ng/mL Troponin T < 0.010 (0.00-0.029) ng/mL Urine Color (Yellow) Urine Turbidity (Clear) Urine pH (5.0-7.0) Ur Specific [place] (1.003-1.030) Urine Protein (Negative) mg/dL Urine Glucose (UA) (Negative) mg/dL Urine Ketones (Negative) mg/dL Urine Blood (Negative) Urine Nitrite (Negative) Urine Bilirubin (Negative) Urine Urobilinogen (<2.0) mg/dL Ur Leukocyte Esterase (Negative) Urine WBC (Auto) (0.0-6.0) /HPF Urine RBC (Auto) (0.0-6.0) /HPF Urine Mucus /HPF Salicylates (2.8-20.0) mg/dL Urine Opiates Screen Urine Methadone Screen Acetaminophen (10.0-30.0) ug/mL Ur Barbiturates Screen Ur Phencyclidine Scrn Ur Amphetamines Screen U Benzodiazepines Scrn Urine Cocaine Screen U Marijuana (THC) Screen Drugs of Abuse Note Plasma/Serum Alcohol (0-0.07) % 0512/18/17 12/18/17 Range/Units 12:45 12:45 12:45 WBC (4.5-11.0) K/mm3 RBC (3.65-5.03) M/mm3 Hgb (11.8-15.2) gm/dl Hct (35.5-45.6) % MCV (84-94) fl MCH (28-32) pg MCHC (32-34) % RDW (13.2-15.2) % Plt Count (140-440) K/mm3 Lymph % (Auto) (13.4-35.0) % [place] % (Auto) (0.0-7.3) % Eos % (Auto) (0.0-4.3) % Baso % (Auto) (0.0-1.8) % Lymph # (1.2-5.4) K/mm3 [place] # (0.0-0.8) K/mm3 Eos # (0.0-0.4) K/mm3 Baso # (0.0-0.1) K/mm3 Seg Neutrophils % (40.0-70.0) % Seg Neutrophils # (1.8-7.7) K/mm3 Sodium (137-145) mmol/L Potassium (3.6-5.0) mmol/L Chloride (98-107) mmol/L Carbon Dioxide (22-30) mmol/L Anion Gap mmol/L BUN (9-20) mg/dL Creatinine (0.8-1.5) mg/dL Estimated GFR ml/min BUN/Creatinine Ratio % Glucose (75-100) mg/dL Calcium (8.4-10.2) mg/dL Total Creatine Kinase (55-170) units/L CK-MB (CK-2) (0.0-4.0) ng/mL Troponin T (0.00-0.029) ng/mL Urine Color (Yellow) Urine Turbidity (Clear) Urine pH (5.0-7.0) Ur Specific [place] (1.003-1.030) Urine Protein (Negative) mg/dL Urine Glucose (UA) (Negative) mg/dL Urine Ketones (Negative) mg/dL Urine Blood (Negative) Urine Nitrite (Negative) Urine Bilirubin (Negative) Urine Urobilinogen (<2.0) mg/dL Ur Leukocyte Esterase (Negative) Urine WBC (Auto) (0.0-6.0) /HPF Urine RBC (Auto) (0.0-6.0) /HPF Urine Mucus /HPF Salicylates < 0.3 L (2.8-20.0) mg/dL Urine Opiates Screen Urine Methadone Screen Acetaminophen < 5.0 L (10.0-30.0) ug/mL Ur Barbiturates Screen Ur Phencyclidine Scrn Ur Amphetamines Screen U Benzodiazepines Scrn Urine Cocaine Screen U Marijuana (THC) Screen Drugs of Abuse Note Plasma/Serum Alcohol < 0.01 (0-0.07) % 12/19/17 12/19/17 Range/Units 06:40 06:40 WBC (4.5-11.0) K/mm3 RBC (3.65-5.03) M/mm3 Hgb (11.8-15.2) gm/dl Hct (35.5-45.6) % MCV (84-94) fl MCH (28-32) pg MCHC (32-34) % RDW (13.2-15.2) % Plt Count (140-440) K/mm3 Lymph % (Auto) (13.4-35.0) % [place] % (Auto) (0.0-7.3) % Eos % (Auto) (0.0-4.3) % Baso % (Auto) (0.0-1.8) % Lymph # (1.2-5.4) K/mm3 [place] # (0.0-0.8) K/mm3 Eos # (0.0-0.4) K/mm3 Baso # (0.0-0.1) K/mm3 Seg Neutrophils % (40.0-70.0) % Seg Neutrophils # (1.8-7.7) K/mm3 Sodium (137-145) mmol/L Potassium (3.6-5.0) mmol/L Chloride (98-107) mmol/L Carbon Dioxide (22-30) mmol/L Anion Gap mmol/L BUN (9-20) mg/dL Creatinine (0.8-1.5) mg/dL Estimated GFR ml/min BUN/Creatinine Ratio % Glucose (75-100) mg/dL Calcium (8.4-10.2) mg/dL Total Creatine Kinase (55-170) units/L CK-MB (CK-2) (0.0-4.0) ng/mL Troponin T (0.00-0.029) ng/mL Urine Color Yellow (Yellow) Urine Turbidity Cloudy (Clear) Urine pH 5.0 (5.0-7.0) Ur Specific [place] 1.018 (1.003-1.030) Urine Protein <15 mg/dl (Negative) mg/dL Urine Glucose (UA) Neg (Negative) mg/dL Urine Ketones Neg (Negative) mg/dL Urine Blood Neg (Negative) Urine Nitrite Neg (Negative) Urine Bilirubin Neg (Negative) Urine Urobilinogen < 2.0 (<2.0) mg/dL Ur Leukocyte Esterase Lg (Negative) Urine WBC (Auto) > 182.0 H (0.0-6.0) /HPF Urine RBC (Auto) 1.0 (0.0-6.0) /HPF Urine Mucus Few /HPF Salicylates (2.8-20.0) mg/dL Urine Opiates Screen Presumptive negative Urine Methadone Screen Presumptive negative Acetaminophen (10.0-30.0) ug/mL Ur Barbiturates Screen Presumptive negative Ur Phencyclidine Scrn Presumptive negative Ur Amphetamines Screen Presumptive negative U Benzodiazepines Scrn Presumptive negative Urine Cocaine Screen Presumptive negative U Marijuana (THC) Screen Presumptive negative Drugs of Abuse Note Disclamer Plasma/Serum Alcohol (0-0.07) %
== END 2017-12-20 16:27 | disposition home or self-care (01) ==
LOC: EEVIPCON 21:07 → ED 21:07
DX: F41.9 Anxiety disorder, unspecified (principal); I10 Essential (primary) hypertension; K21.9 Gastro-esophageal reflux disease without esophagitis
CPT/HCPCS: 36415; 71046; 80048; 80307; 81001; 82550; 82553; 84484; 85025; 96372; 99285; G0480; J1885; J2060; 80320

== ENCOUNTER 2018-02-19 20:42 | Emergency (ER) | payer MEDICARE ==
[2018-02-19] MEDS ORDERED: ASPIRIN PO ONE (21:44)
[2018-02-19 21:57] LABS: Basophils % (Auto) 0.6 % (0.0-1.8); Eosinophils # (Auto) 0.1 K/mm3 (0.0-0.4); Eosinophils % (Auto) 0.9 % (0.0-4.3); Hematocrit 42.3 % (35.5-45.6); Hemoglobin 14.9 gm/dl (11.8-15.2); Lymphocytes # (Auto) 1.2 K/mm3 (1.2-5.4); Lymphocytes % (Auto) 14.1 % (13.4-35.0); Mean Corpuscular HGB Conc 35 % (32-34); Mean Corpuscular Hemoglobin 33 pg (28-32); Mean Corpuscular Volume 93 fl (84-94); Monocytes # (Auto) 0.7 K/mm3 (0.0-0.8); Monocytes % (Auto) 8.4 % (0.0-7.3); Platelet Count 231 K/mm3 (140-440); Red Blood Count 4.55 M/mm3 (3.65-5.03); Red Cell Distribution Width 13.3 % (13.2-15.2)
[2018-02-19 22:10] LABS: BUN/Creatinine Ratio 10; Blood Urea Nitrogen 7 mg/dL (9-20); Calcium 9.2 mg/dL (8.4-10.2); Hemolysis Index 11
[2018-02-20] MEDS ORDERED: ALUM-MAG HYDROX-SIMETH 200-200-20MG/5ML PO ONE (01:28)
[2018-02-20] MEDS ORDERED: ZOFRAN ODT PO ONE (01:28)
[2018-02-20] MEDS ORDERED: LIDOCAINE VISCOUS 2% PO ONE (01:28)
[2018-02-20] MEDS ORDERED: NACL 0.9% 1000 ML 1,000 ML IV ONE (01:49)
--- NOTE | 2018-02-20 01:53 | Emergency Department Report ---
ED General Adult HPI - General Chief complaint: Chest Pain Stated complaint: NAUSEA VOMITING Time Seen by Provider: 02/20/18 01:27 Source: patient, EMS Mode of arrival: Ambulatory Limitations: No Limitations - History of Present Illness Initial comments: 6 days of nausea, vomiting, and substernal chest pain. He isn't able to keep anything down. Afebrile. No h/o smoking/drinking. Dad did have a MN. CP is substernal, radiating to the back, constant, worse with food/exertion/deep breaths. No abd pain or diarrhea. Last bm today. Returned from [place] on . - Related Data Home Medications Medication Instructions Recorded Confirmed Last Taken Fluticasone/Salmeterol [Advair 1 puff IH BID 01/23/15 12/18/17 12/17/17 Diskus 250-50 mcg] Docusate Sodium [Colace CAP] 100 mg PO BID 10/08/16 12/18/17 12/17/17 Psyllium Husk [Metamucil] 0.52 gm PO DAILY 10/08/16 12/18/17 12/17/17 diphenhydrAMINE [Benadryl CAP] 50 mg PO QHS 10/08/16 12/18/17 12/17/17 levETIRAcetam [Keppra TAB] 1,000 mg PO BID 10/08/16 12/18/17 12/17/17 Omeprazole 20 mg PO DAILY 12/18/17 12/18/17 12/17/17 traZODone [Desyrel] 100 mg PO QHS 12/18/17 12/18/17 12/17/17 Previous Rx's Medication Instructions Recorded Last Taken Type Sertraline [Zoloft] 100 mg PO QDAY tablet 01/28/15 12/17/17 Rx Tamsulosin [Flomax] 0.4 mg PO BID capsule 01/28/15 12/17/17 Rx Ibuprofen [Motrin] 600 mg PO Q8H PRN #14 tablet 12/12/17 12/17/17 Rx Nitrofurantoin Hardy/M-Cryst 100 mg PO Q12HR #11 capsule 12/20/17 Unknown Rx [Macrobid CAP] Sertraline [Zoloft] 100 mg PO QDAY #30 tablet 12/20/17 Unknown Rx traZODone [Desyrel] 100 mg PO QHS #30 tablet 12/20/17 Unknown Rx Ondansetron [Zofran Odt] 4 mg PO Q8H PRN #10 tab.rapdis 02/20/18 Unknown Rx Allergies Allergy/AdvReac Type Severity Reaction Status Date / Time No Known Allergies Allergy Verified 12/11/17 23:40 ED Review of Systems ROS: Stated complaint: NAUSEA VOMITING Other details as noted in HPI Comment: All other systems reviewed and negative Cardiovascular: chest pain Gastrointestinal: nausea, vomiting ED Past Medical Hx - Past Medical History Previous Medical History?: Yes Hx Hypertension: Yes (X 16 YRS) Hx Congestive Heart Failure: No Hx Diabetes: No Hx GERD: Yes Hx Seizures: Yes (ON MEDS- LAST SEIZURE 2 YRS AGO) Hx Asthma: Yes (ON INHALERS) Hx COPD: No Additional medical history: legally blind. pneumonia - Surgical History Past Surgical History?: Yes Additional Surgical History: METAL PLATE in the back of his head. 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 thyroid surgery - Social History Smoking Status: Never Smoker Substance Use Type: None - Medications Home Medications: Home Medications Medication Instructions Recorded Confirmed Last Taken Type Fluticasone/Salmeterol [Advair 1 puff IH BID 01/23/15 12/18/17 12/17/17 History Diskus 250-50 mcg] Sertraline [Zoloft] 100 mg PO QDAY tablet 01/28/15 12/18/17 12/17/17 Rx Tamsulosin [Flomax] 0.4 mg PO BID capsule 01/28/15 12/18/17 12/17/17 Rx Docusate Sodium [Colace CAP] 100 mg PO BID 10/08/16 12/18/17 12/17/17 History Psyllium Husk [Metamucil] 0.52 gm PO DAILY 10/08/16 12/18/17 12/17/17 History diphenhydrAMINE [Benadryl CAP] 50 mg PO QHS 10/08/16 12/18/17 12/17/17 History levETIRAcetam [Keppra TAB] 1,000 mg PO BID 10/08/16 12/18/17 12/17/17 History Ibuprofen [Motrin] 600 mg PO Q8H PRN #14 tablet 05/12/18/17 12/17/17 Rx Omeprazole 20 mg PO DAILY 12/18/17 12/18/17 12/17/17 History traZODone [Desyrel] 100 mg PO QHS 12/18/17 12/18/17 12/17/17 History Nitrofurantoin Hardy/M-Cryst 100 mg PO Q12HR #11 capsule 12/20/17 Unknown Rx [Macrobid CAP] Sertraline [Zoloft] 100 mg PO QDAY #30 tablet 12/20/17 Unknown Rx traZODone [Desyrel] 100 mg PO QHS #30 tablet 12/20/17 Unknown Rx Ondansetron [Zofran Odt] 4 mg PO Q8H PRN #10 tab.rapdis 02/20/18 Unknown Rx ED Physical Exam - General Limitations: No Limitations General appearance: alert, in no apparent distress - Head Head exam: Present: atraumatic, normocephalic - Eye Eye exam: Present: normal appearance - ENT ENT exam: Present: mucous membranes dry - Neck Neck exam: Present: normal inspection - Respiratory Respiratory exam: Present: normal lung sounds bilaterally. Absent: respiratory distress - Cardiovascular Cardiovascular Exam: Present: regular rate, normal rhythm. Absent: systolic murmur, diastolic murmur, rubs, gallop - GI/Abdominal GI/Abdominal exam: Present: soft, tenderness (RUQ, epigastric, LUQ), normal bowel sounds. Absent: guarding, rebound, rigid - Rectal Rectal exam: Present: deferred - Extremities Exam Extremities exam: Present: normal inspection - Back Exam Back exam: Present: normal inspection - Neurological Exam Neurological exam: Present: alert, oriented X3 - Psychiatric Psychiatric exam: Present: normal affect, normal mood - Skin Skin exam: Present: warm, dry, intact, normal color. Absent: rash ED Course Vital Signs 02/19/18 02/20/18 02/20/18 21:38 01:52 05:37 Temperature 97.6 F 97.7 F Pulse Rate 71 67 Pulse Rate [ 86 Bilateral Throughout] Respiratory 18 16 Rate Respiratory 18 Rate [Bilateral Throughout] Blood Pressure 130/88 Blood Pressure 122/77 [Right] O2 Sat by Pulse 97 99 Oximetry 02/20/18 05:52 Temperature Pulse Rate Pulse Rate [ 88 Bilateral Throughout] Respiratory Rate Respiratory 18 Rate [Bilateral Throughout] Blood Pressure Blood Pressure [Right] O2 Sat by Pulse Oximetry - Reevaluation(s) Reevaluation #1: Labs, including delta troponin are neg. Low risk heart score. EKG is nonischemic. CXR shows NAP. Pt has been given a GI cocktail and xolpenex with no improvement of symptoms. He is perc neg. Low suspicion for PE. He is clear for dc with outpatient follow up. Hasnt' had any vomiting while in the ER. Continues to endorse no abd pain. 02/20/18 06:13 02/20/18 06:15 ED Medical Decision Making - Lab Data Result diagrams: 02/19/18 21:45 02/19/18 21:45 - EKG Data -: EKG Interpreted by Me EKG shows normal: sinus rhythm, axis, intervals, QRS complexes, ST-T waves Rate: normal - EKG Data Interpretation: no acute changes - Differential Diagnosis gastritis, GERD, ACS, SBO, gastroenteritis, ETEC, pancreatitis Critical care attestation.: If time is entered above; I have spent that time in minutes in the direct care of this critically ill patient, excluding procedure time. ED Disposition Clinical Impression: Chest pain Disposition: DC-01 TO HOME OR SELFCARE Is pt being admited?: No Does the pt Need Aspirin: No Condition: Stable Instructions: Chest Pain (ED) Additional Instructions: Please follow up with your family doctor for further management of your chest pain. Prescriptions: Ondansetron [Zofran Odt] 4 mg PO Q8H PRN #10 tab.rapdis PRN Reason: Nausea Referrals: PRIMARY CARE, [Primary Care Provider] - 3-5 Days
[2018-02-20 02:06] LABS: Alanine Aminotransferase 14 units/L (7-56); Albumin 4.5 g/dL (3.9-5); Lipase 23 units/L (13-60)
[2018-02-20 02:07] LABS: Bilirubin,Direct < 0.2 mg/dL (0-0.2)
--- NOTE | 2018-02-20 04:07 | XRay Report ---
FINAL REPORT PROCEDURE: XR CHEST ROUTINE 2V TECHNIQUE: PA and lateral chest radiographs were obtained. CPT 50247 HISTORY: chest pain COMPARISON: 12/12/2017 FINDINGS: Heart: Normal. Mediastinum/Vessels: Normal. Lungs/Pleural space: Normal. Bony thorax: No acute osseous abnormality. Other: IMPRESSION: There is no evidence of an acute cardiopulmonary process..
[2018-02-20] MEDS ORDERED: XOPENEX IH ONE (05:14)
[2018-02-20 07:03] VITALS: BP 124/78
== END 2018-02-20 06:35 | disposition home or self-care (01) ==
LOC: ED 20:42
DX: R07.89 Other chest pain (principal); R11.2 Nausea with vomiting, unspecified; I10 Essential (primary) hypertension; K21.9 Gastro-esophageal reflux disease without esophagitis; J45.909 Unspecified asthma, uncomplicated
CPT/HCPCS: 36415; 71046; 80048; 80074; 83690; 84484; 85025; 93005; 93010; 94640; 96360; 99285; J7030; Q0162

== ENCOUNTER 2018-03-05 18:27 | Emergency (ER) | payer MEDICARE ==
[2018-03-05] MEDS ORDERED: ASPIRIN PO ONE (19:22)
[2018-03-05 20:19] LABS: Basophils # (Auto) 0.1 K/mm3 (0.0-0.1); Basophils % (Auto) 0.7 % (0.0-1.8); Eosinophils # (Auto) 0.1 K/mm3 (0.0-0.4); Eosinophils % (Auto) 0.7 % (0.0-4.3); Hematocrit 43.6 % (35.5-45.6); Hemoglobin 15.1 gm/dl (11.8-15.2); Lymphocytes % (Auto) 8.7 % (13.4-35.0); Mean Corpuscular HGB Conc 35 % (32-34); Mean Corpuscular Hemoglobin 32 pg (28-32); Mean Corpuscular Volume 93 fl (84-94); Monocytes # (Auto) 0.8 K/mm3 (0.0-0.8); Monocytes % (Auto) 7.4 % (0.0-7.3); Platelet Count 214 K/mm3 (140-440); Red Blood Count 4.68 M/mm3 (3.65-5.03); Red Cell Distribution Width 13.7 % (13.2-15.2)
[2018-03-05 20:31] LABS: BUN/Creatinine Ratio 11; Blood Urea Nitrogen 8 mg/dL (9-20); Calcium 9.5 mg/dL (8.4-10.2); Hemolysis Index 8
[2018-03-06] MEDS ORDERED: ANTIVERT PO ONE (10:37)
[2018-03-06] MEDS ORDERED: PHENERGAN PO ONE ×2 (10:38→14:32)
[2018-03-06] MEDS ORDERED: PROTONIX PO ONE (10:38)
--- NOTE | 2018-03-06 10:40 | Emergency Department Report ---
ED Chest Pain HPI - General Chief Complaint: Chest Pain Stated Complaint: CHEST TIGHTNESS Time Seen by Provider: 03/06/18 10:19 Source: patient, EMS Mode of arrival: Wheelchair Limitations: No Limitations - History of Present Illness Initial Comments: This is a 42-year-old male patient arrived to the hospital via EMS reports that he is having dizziness. He reports that he was treated last week by his primary care physician for heat or tract infection and he had a stress test done on Saturday which was negative findings. He reports that he is having chest pain. He also reported he was evidence of shortness of breath and it has been relief. She said this happened to her before this why he had stress tests. This started 2 days ago. Denies any fever or chills. Report urinary burning. Denies any blood in his urine. He also reports that he is having abdominal pain. Pain is 7 out of 10 and achy. . He takes Zofran at home for nausea. Has taken any pain medication. MD Complaint: chest pain, other (dizziness and nausea/abdominal pain) Onset/Timin -: days(s) Onset: during rest, during exertion Severity: severe Severity scale (0 -10): 10 Quality: aching Consistency: intermittent Improves With: nothing Worsens With: nothing Context: other (unknown) re: nausea. denies: vomting, diaphoresis, dyspnea, sense of impending doom Treatments Prior to Arrival: none Aspirin use within the Past 7 Days: (0) No - Related Data On Oral Contraceptives: No Home Medications Medication Instructions Recorded Confirmed Last Taken Fluticasone/Salmeterol [Advair 1 puff IH BID 01/23/15 12/18/17 12/17/17 Diskus 250-50 mcg] Docusate Sodium [Colace CAP] 100 mg PO BID 10/08/16 12/18/17 12/17/17 Psyllium Husk [Metamucil] 0.52 gm PO DAILY 10/08/16 12/18/17 12/17/17 diphenhydrAMINE [Benadryl CAP] 50 mg PO QHS 10/08/16 12/18/17 12/17/17 levETIRAcetam [Keppra TAB] 1,000 mg PO BID 10/08/16 12/18/17 12/17/17 Omeprazole 20 mg PO DAILY 12/18/17 12/18/17 12/17/17 traZODone [Desyrel] 100 mg PO QHS 12/18/17 12/18/17 12/17/17 Previous Rx's Medication Instructions Recorded Last Taken Type Sertraline [Zoloft] 100 mg PO QDAY tablet 01/28/15 12/17/17 Rx Tamsulosin [Flomax] 0.4 mg PO BID capsule 01/28/15 12/17/17 Rx Ibuprofen [Motrin] 600 mg PO Q8H PRN #14 tablet 12/12/17 12/17/17 Rx Nitrofurantoin [place]/M-Cryst 100 mg PO Q12HR #11 capsule 12/20/17 Unknown Rx [Macrobid CAP] Sertraline [Zoloft] 100 mg PO QDAY #30 tablet 12/20/17 Unknown Rx traZODone [Desyrel] 100 mg PO QHS #30 tablet 12/20/17 Unknown Rx Ondansetron [Zofran Odt] 4 mg PO Q8H PRN #10 tab.rapdis 02/20/18 Unknown Rx Meclizine [Antivert] 25 mg PO TID PRN 10 Days #10 tablet 03/06/18 Unknown Rx Promethazine [Phenergan TAB] 25 mg PO Q8HR PRN #12 tab 03/06/18 Unknown Rx levoFLOXacin [Levaquin] 750 mg PO QDAY 10 Days #10 tablet 03/06/18 Unknown Rx Allergies Allergy/AdvReac Type Severity Reaction Status Date / Time No Known Allergies Allergy Verified 12/11/17 23:40 Heart Score - HEART Score History: Slightly suspicious EKG: Normal Age: < 45 Risk factors: 1-2 risk factors Troponin: < normal limit HEART Score: 1 - Critical Actions Critical Actions: 0-3 pts:0.9-1.7%risk of adverse cardiac event.Candidate for discharge ED Review of Systems ROS: Stated complaint: CHEST TIGHTNESS Other details as noted in HPI Constitutional: denies: chills, fever Eyes: denies: vision change Respiratory: denies: cough, shortness of breath, SOB with exertion, SOB at rest , stridor, wheezing Cardiovascular: denies: chest pain, palpitations, dyspnea on exertion, edema, syncope Endocrine: no symptoms reported Gastrointestinal: abdominal pain, nausea, vomiting. denies: diarrhea, constipation, hematemesis, hematochezia Genitourinary: denies: urgency, dysuria, hematuria, discharge Musculoskeletal: denies: back pain, joint swelling, arthralgia Skin: denies: rash, lesions Neurological: denies: headache, weakness, numbness, paresthesias, confusion, abnormal gait, vertigo ED Past Medical Hx - Past Medical History Previous Medical History?: Yes Hx Hypertension: Yes (X 16 YRS) Hx Congestive Heart Failure: No Hx Diabetes: Yes Hx GERD: Yes Hx Seizures: Yes (ON MEDS- LAST SEIZURE 2 YRS AGO) Hx Asthma: Yes (ON INHALERS) Hx COPD: No Additional medical history: legally blind. pneumonia - Surgical History Past Surgical History?: Yes Additional Surgical History: METAL PLATE in the back of his head. 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 thyroid surgery - Family History Family history: hypertension - Social History Smoking Status: Never Smoker Substance Use Type: None - Medications Home Medications: Home Medications Medication Instructions Recorded Confirmed Last Taken Type Fluticasone/Salmeterol [Advair 1 puff IH BID 01/23/15 12/18/17 12/17/17 History Diskus 250-50 mcg] Sertraline [Zoloft] 100 mg PO QDAY tablet 01/28/15 12/18/17 12/17/17 Rx Tamsulosin [Flomax] 0.4 mg PO BID capsule 01/28/15 12/18/17 12/17/17 Rx Docusate Sodium [Colace CAP] 100 mg PO BID 10/08/16 12/18/17 12/17/17 History Psyllium Husk [Metamucil] 0.52 gm PO DAILY 10/08/16 12/18/17 12/17/17 History diphenhydrAMINE [Benadryl CAP] 50 mg PO QHS 10/08/16 12/18/17 12/17/17 History levETIRAcetam [Keppra TAB] 1,000 mg PO BID 10/08/16 12/18/17 12/17/17 History Ibuprofen [Motrin] 600 mg PO Q8H PRN #14 tablet 12/12/17 12/18/17 12/17/17 Rx Omeprazole 20 mg PO DAILY 12/18/17 12/18/17 12/17/17 History traZODone [Desyrel] 100 mg PO QHS 12/18/17 12/18/17 12/17/17 History Nitrofurantoin [place]/M-Cryst 100 mg PO Q12HR #11 capsule 12/20/17 Unknown Rx [Macrobid CAP] Sertraline [Zoloft] 100 mg PO QDAY #30 tablet 12/20/17 Unknown Rx traZODone [Desyrel] 100 mg PO QHS #30 tablet 12/20/17 Unknown Rx Ondansetron [Zofran Odt] 4 mg PO Q8H PRN #10 tab.rapdis 02/20/18 Unknown Rx Meclizine [Antivert] 25 mg PO TID PRN 10 Days #10 tablet 03/06/18 Unknown Rx Promethazine [Phenergan TAB] 25 mg PO Q8HR PRN #12 tab 03/06/18 Unknown Rx levoFLOXacin [Levaquin] 750 mg PO QDAY 10 Days #10 tablet 03/06/18 Unknown Rx ED Physical Exam - General Limitations: No Limitations General appearance: alert, in no apparent distress - Head Head exam: Present: atraumatic, normocephalic, normal inspection - Eye Eye exam: Present: normal appearance, PERRL, EOMI Pupils: Present: normal accommodation - ENT ENT exam: Present: normal exam, normal orophraynx, mucous membranes moist, TM's normal bilaterally, normal external ear exam - Neck Neck exam: Present: normal inspection, full ROM. Absent: tenderness, lymphadenopathy - Respiratory Respiratory exam: Present: normal lung sounds bilaterally. Absent: respiratory distress, chest wall tenderness - Cardiovascular Cardiovascular Exam: Present: regular rate, normal rhythm, normal heart sounds. Absent: systolic murmur, diastolic murmur - GI/Abdominal GI/Abdominal exam: Present: soft, tenderness (that is palpated to upper quadrant abdomen), normal bowel sounds. Absent: distended, guarding, rebound, rigid, organomegaly, mass - Extremities Exam Extremities exam: Present: normal inspection, full ROM, normal capillary refill. Absent: tenderness, pedal edema - Back Exam Back exam: Present: normal inspection, full ROM. Absent: tenderness, muscle spasm, paraspinal tenderness, rash noted - Neurological Exam Neurological exam: Present: alert, oriented X3, normal gait, other (patient is wheelchair-bound) - Psychiatric Psychiatric exam: Present: normal affect, normal mood - Skin Skin exam: Present: warm, dry ED Course Vital Signs 03/05/18 03/06/18 03/06/18 19:19 07:37 16:05 Temperature 98.2 F 98.1 F Pulse Rate 78 78 86 Respiratory 18 20 17 Rate Blood Pressure 153/107 Blood Pressure 133/81 131/82 [Left] O2 Sat by Pulse 98 100 97 Oximetry GASTON score - Gaston Score Age > 65: (0) No Aspirin use within the Past 7 Days: (0) No 3 or more CAD Risk Factors: (0) No 2 or more Angina events in past 24 hrs: (0) No Known CAD with more than 50% Stenosis: (0) No Elevated Cardiac Markers: (0) No ST Deviation Greater than 0.5mm: (0) No GASTON Score: 0 ED Medical Decision Making - Lab Data Result diagrams: 03/05/18 20:05 03/05/18 20:05 Lab Results 03/05/18 03/05/18 03/05/18 Range/Units 20:05 20:05 22:46 WBC 11.0 (4.5-11.0) K/mm3 RBC 4.68 (3.65-5.03) M/mm3 Hgb 15.1 (11.8-15.2) gm/dl Hct 43.6 (35.5-45.6) % MCV 93 (84-94) fl MCH 32 (28-32) pg MCHC 35 H (32-34) % RDW 13.7 (13.2-15.2) % Plt Count 214 (140-440) K/mm3 Lymph % (Auto) 8.7 L (13.4-35.0) % [place] % (Auto) 7.4 H (0.0-7.3) % Eos % (Auto) 0.7 (0.0-4.3) % Baso % (Auto) 0.7 (0.0-1.8) % Lymph # 1.0 L (1.2-5.4) K/mm3 [place] # 0.8 (0.0-0.8) K/mm3 Eos # 0.1 (0.0-0.4) K/mm3 Baso # 0.1 (0.0-0.1) K/mm3 Seg Neutrophils % 82.5 H (40.0-70.0) % Seg Neutrophils # 9.1 H (1.8-7.7) K/mm3 Sodium 134 L (137-145) mmol/L Potassium 3.7 (3.6-5.0) mmol/L Chloride 94.5 L (98-107) mmol/L Carbon Dioxide 25 (22-30) mmol/L Anion Gap 18 mmol/L BUN 8 L (9-20) mg/dL Creatinine 0.7 L (0.8-1.5) mg/dL Estimated GFR > 60 ml/min BUN/Creatinine Ratio 11 % Glucose 101 H (75-100) mg/dL Calcium 9.5 (8.4-10.2) mg/dL Troponin T < 0.010 < 0.010 (0.00-0.029) ng/mL Lipase (13-60) units/L Urine Color (Yellow) Urine Turbidity (Clear) Urine pH (5.0-7.0) Ur Specific [place] (1.003-1.030) Urine Protein (Negative) mg/dL Urine Glucose (UA) (Negative) mg/dL Urine Ketones (Negative) mg/dL Urine Blood (Negative) Urine Nitrite (Negative) Urine Bilirubin (Negative) Urine Urobilinogen (<2.0) mg/dL Ur Leukocyte Esterase (Negative) Urine WBC (Auto) (0.0-6.0) /HPF Urine RBC (Auto) (0.0-6.0) /HPF U Epithel Cells (Auto) (0-13.0) /HPF Urine Bacteria (Auto) (Negative) /HPF 03/06/18 03/06/18 03/06/18 Range/Units 01:26 01:26 11:21 WBC (4.5-11.0) K/mm3 RBC (3.65-5.03) M/mm3 Hgb (11.8-15.2) gm/dl Hct (35.5-45.6) % MCV (84-94) fl MCH (28-32) pg MCHC (32-34) % RDW (13.2-15.2) % Plt Count (140-440) K/mm3 Lymph % (Auto) (13.4-35.0) % [place] % (Auto) (0.0-7.3) % Eos % (Auto) (0.0-4.3) % Baso % (Auto) (0.0-1.8) % Lymph # (1.2-5.4) K/mm3 [place] # (0.0-0.8) K/mm3 Eos # (0.0-0.4) K/mm3 Baso # (0.0-0.1) K/mm3 Seg Neutrophils % (40.0-70.0) % Seg Neutrophils # (1.8-7.7) K/mm3 Sodium (137-145) mmol/L Potassium (3.6-5.0) mmol/L Chloride (98-107) mmol/L Carbon Dioxide (22-30) mmol/L Anion Gap mmol/L BUN (9-20) mg/dL Creatinine (0.8-1.5) mg/dL Estimated GFR ml/min BUN/Creatinine Ratio % Glucose (75-100) mg/dL Calcium (8.4-10.2) mg/dL Troponin T < 0.010 (0.00-0.029) ng/mL Lipase 23 (13-60) units/L Urine Color Yellow (Yellow) Urine Turbidity Cloudy (Clear) Urine pH 6.0 (5.0-7.0) Ur Specific [place] 1.013 (1.003-1.030) Urine Protein <15 mg/dl (Negative) mg/dL Urine Glucose (UA) Neg (Negative) mg/dL Urine Ketones Tr (Negative) mg/dL Urine Blood Neg (Negative) Urine Nitrite Pos (Negative) Urine Bilirubin Neg (Negative) Urine Urobilinogen 2.0 (<2.0) mg/dL Ur Leukocyte Esterase Lg (Negative) Urine WBC (Auto) 104.0 H (0.0-6.0) /HPF Urine RBC (Auto) 3.0 (0.0-6.0) /HPF U Epithel Cells (Auto) 1.0 (0-13.0) /HPF Urine Bacteria (Auto) 2+ (Negative) /HPF Urine culture sent - EKG Data EKG shows normal: sinus rhythm Rate: normal (sinus rhythm at 85 bpm) - EKG Data Interpretation: no acute changes, normal EKG - Radiology Data Radiology results: report reviewed Chest x-ray dictated by radiologist and report reviewed by myself and no acute findings. Patient: FLORIDA CROCKER MR#: [id number] : 1975 Acct:[id number] Age/Sex: 42 / M ADM Date: 03/05/18 Loc: ED Attending Dr: Ordering Physician: BESS VALDIVIA MD Date of Service: 03/06/18 Procedure(s): XR chest 1V ap Accession Number(s): [id number] cc: BESS VALDIVIA MD Fluoro Time In Minutes: AP CHEST: HISTORY: chest pain AP view of the chest demonstrates a normal mediastinal and cardiac contour with clear lungs and normal bony and soft tissue structures. IMPRESSION: Unremarkable AP chest. Transcribed By: TTR Dictated By: MARIO MEDLEY JR, MD Electronically Authenticated By: MARIO MEDLEY JR, MD Signed Date/Time: 03/06/18 115 DD/ 1152 TD/TT: 03/06/18 1152 Patient: FLORIDA CROCKER MR#: [id number] : 1975 Acct:[id number] Age/Sex: 42 / M ADM Date: 03/05/18 Loc: ED Attending Dr: Ordering Physician: PATRICIA SUNSHINE Date of Service: 03/06/18 Procedure(s): US abdomen limited Accession Number(s): [id number] cc: PATRICIA SUNSHINE ULTRASOUND ABDOMEN LIMITED: TECHNIQUE: Transabdominal ultrasound with color Doppler interrogation. HISTORY: right upper quadrant abdominal pain, nausea. COMPARISON: none. FINDINGS: LIVER: The liver parenchyma is echogenic consistent with mild diffuse fatty infiltration. No focal liver lesion is identified. BILIARY SYSTEM: Normal. PANCREAS: Obscured by bowel gas. RIGHT KIDNEY: Normal. PROXIMAL AORTA: Normal. ASCITES: None. IMPRESSION: Fatty infiltration of the liver. The pancreas is obscured. No biliary abnormality identified. Transcribed By: TTR Dictated By: MARIO MEDLEY JR, MD Electronically Authenticated By: MARIO MEDLEY JR, MD Signed Date/Time: 03/06/18 1224 DD/ 1223 TD/TT: 03/06/18 1224 - Medical Decision Making This is a 42-year-old male here reports that he is having dizziness, chest pain with nausea and shortness of breath. Patient said he had a stress test done last week and cardiac technician told him that it was normal. He reports that he went to his primary care physician and they told him that he had a urinary tract infection and he is on antibiotic. Denies any urinary burning, frequency or urgency. Patient was seen and examined by myself. Critical care attestation.: If time is entered above; I have spent that time in minutes in the direct care of this critically ill patient, excluding procedure time. ED Disposition Clinical Impression: Acute cystitis without hematuria, Vertigo, Chest pain, atypical Abdominal pain Qualifiers: Abdominal location: upper abdomen, unspecified Qualified Code(s): R10.10 - Upper abdominal pain, unspecified Disposition: - TO HOME OR SELFCARE Is pt being admited?: No Does the pt Need Aspirin: No Condition: Stable Instructions: Chest Pain (ED), Urinary Tract Infection in Men (ED), Vertigo (ED ), Abdominal Pain (ED) Additional Instructions: Please increase her fluid intake. I spoke to the patient's director of development who will follow up with patient primary care doctor to manage urinary tract infection. Take Levaquin as prescribed and stop taken current antibiotic. This will cover your urinary tract infection better Take Antivert for dizziness as ordered Take Phenergan for nausea If his symptoms worsens, please return to emergency room [facility] DANIEL Prescriptions: levoFLOXacin [Levaquin] 750 mg PO QDAY 10 Days #10 tablet Meclizine [Antivert] 25 mg PO TID PRN 10 Days #10 tablet PRN Reason: Vertigo Promethazine [Phenergan TAB] 25 mg PO Q8HR PRN #12 tab PRN Reason: Nausea Referrals: TUCKER RUSSELL MD [Primary Care Provider] - 03/07/18
--- NOTE | 2018-03-06 10:41 | Emergency Department Report ---
Blank Doc - Documentation Documentation: Patient complains of dizziness along with chest pain 2 days. Patient describes his dizziness as the room spinning. Patient denies any radiation of his chest pain states he has no cardiac history. Patient's 2 troponins are negative with the EKG that shows a normal sinus rhythm without any signs of ST elevation. The patient be transferred to the mid-level provider within [place] available and willing for consultation
[2018-03-06] MEDS ORDERED: TORADOL IM ONE (10:46)
[2018-03-06 11:48] LABS: Bacteria,Urine 2+ /HPF (Negative); Bilirubin,Urine NEG (Negative); Blood,Urine NEG (Negative); Color,Urine Yellow (Yellow); Protein,Urine <15 mg/dL mg/dL (Negative)
--- NOTE | 2018-03-06 11:59 | XRay Report ---
AP CHEST: HISTORY: chest pain AP view of the chest demonstrates a normal mediastinal and cardiac contour with clear lungs and normal bony and soft tissue structures. IMPRESSION: Unremarkable AP chest.
--- NOTE | 2018-03-06 12:31 | Ultrasound Report ---
ULTRASOUND ABDOMEN LIMITED: TECHNIQUE: Transabdominal ultrasound with color Doppler interrogation. HISTORY: right upper quadrant abdominal pain, nausea. COMPARISON: none. FINDINGS: LIVER: The liver parenchyma is echogenic consistent with mild diffuse fatty infiltration. No focal liver lesion is identified. BILIARY SYSTEM: Normal. PANCREAS: Obscured by bowel gas. RIGHT KIDNEY: Normal. PROXIMAL AORTA: Normal. ASCITES: None. IMPRESSION: Fatty infiltration of the liver. The pancreas is obscured. No biliary abnormality identified.
[2018-03-06] MEDS ORDERED: ROCEPHIN IM STA (14:21)
[2018-03-06] MEDS ORDERED: XYLOCAINE 1% MPF 5 mL INFILTRATI ONE (14:21)
[2018-03-06 16:06] VITALS: BP 131/82
== END 2018-03-06 15:35 | disposition home or self-care (01) ==
LOC: ED 18:27
DX: N30.00 Acute cystitis without hematuria (principal); R42 Dizziness and giddiness; R07.89 Other chest pain; I10 Essential (primary) hypertension; E11.9 Type 2 diabetes mellitus without complications; K21.9 Gastro-esophageal reflux disease without esophagitis; J45.909 Unspecified asthma, uncomplicated
CPT/HCPCS: 36415; 71045; 76705; 80048; 81001; 83690; 84484; 85025; 87086; 93005; 93010; 96372; 99285; J1885; 87076; 87186; Q0169

== ENCOUNTER 2018-03-17 19:40 | Emergency (ER) | payer MEDICARE ==
[2018-03-17 20:44] LABS: Basophils # (Auto) 0.1 K/mm3 (0.0-0.1); Basophils % (Auto) 1.1 % (0.0-1.8); Eosinophils # (Auto) 0.1 K/mm3 (0.0-0.4); Eosinophils % (Auto) 1.3 % (0.0-4.3); Hemoglobin 15.1 gm/dl (11.8-15.2); Lymphocytes # (Auto) 1.3 K/mm3 (1.2-5.4); Lymphocytes % (Auto) 13.7 % (13.4-35.0); Mean Corpuscular HGB Conc 35 % (32-34); Mean Corpuscular Hemoglobin 33 pg (28-32); Mean Corpuscular Volume 93 fl (84-94); Monocytes # (Auto) 0.7 K/mm3 (0.0-0.8); Monocytes % (Auto) 7.7 % (0.0-7.3); Platelet Count 215 K/mm3 (140-440); Red Blood Count 4.65 M/mm3 (3.65-5.03); Red Cell Distribution Width 13.3 % (13.2-15.2)
[2018-03-17 21:00] LABS: Alanine Aminotransferase 9 units/L (7-56); Albumin 4.3 g/dL (3.9-5); BUN/Creatinine Ratio 14; Blood Urea Nitrogen 11 mg/dL (9-20); Calcium 9.3 mg/dL (8.4-10.2); Hemolysis Index 9
[2018-03-18] MEDS ORDERED: ZOFRAN IV ONE (09:43)
[2018-03-18] MEDS ORDERED: MORPHINE IV ONE (09:43)
--- NOTE | 2018-03-18 09:49 | Emergency Department Report ---
Blank Doc - Documentation Documentation: Patient presents to the emergency department with a chief complaint of left- sided abdominal pain 2 days. Patient also complains of nausea and vomiting as well. Patient denies any bending of his pain better or worse and describes the pain as sharp. On exam the patient is tender to palpation of the left upper and lower quadrants. CT of abdomen and pain medication were ordered. Patient' s care will be turned over to the mid-level provider with me available for consultation
[2018-03-18] MEDS ORDERED: NACL 0.9% 1000 ML 1,000 ML ONE (10:04)
[2018-03-18] MEDS: NACL 0.9% 1000 ML 1,000 ML IV ONE ×3 (10:07→16:10)
--- NOTE | 2018-03-18 10:48 | Emergency Department Report ---
ED Abdominal Pain HPI - General Chief Complaint: Abdominal Pain Stated Complaint: DIZZY/NAUSEA Time Seen by Provider: 03/18/18 09:17 Source: EMS Mode of arrival: Ambulatory Limitations: Other - History of Present Illness Initial Comments: Patient presents to the emergency department with a chief complaint of left- sided abdominal pain 2 days. Patient also complains of nausea and vomiting as well. He reports he had some nausea and vomited on and off but none now. He said he took Zofran at home. I will abdominal pain is located on the left side. Patient was here last week and he was having epigastric abdominal pain patient with a history of asthma and hypertension. No alleviating or exacerbating factor. Denies any fever or chills. MD Complaint: abdominal pain Onset/Timin -: week(s) Location: L flank Radiation: none Migration to: no migration Severity scale (0 -10): 8 Quality: cramping Improves With: nothing Worsens With: nothing Context: other (history of kidney stones) Associated Symptoms: nausea, vomiting. denies: diarrhea, fever, chills, constipation, dysuria, hematemesis, hematochezia, melena, hematuria, anorexia, syncope Treatments Prior to Arrival: other (none) - Related Data Home Medications Medication Instructions Recorded Confirmed Last Taken Fluticasone/Salmeterol [Advair 1 puff IH BID 01/23/15 12/18/17 12/17/17 Diskus 250-50 mcg] Docusate Sodium [Colace CAP] 100 mg PO BID 10/08/16 12/18/17 12/17/17 Psyllium Husk [Metamucil] 0.52 gm PO DAILY 10/08/16 12/18/17 12/17/17 diphenhydrAMINE [Benadryl CAP] 50 mg PO QHS 10/08/16 12/18/17 12/17/17 levETIRAcetam [Keppra TAB] 1,000 mg PO BID 10/08/16 12/18/17 12/17/17 Omeprazole 20 mg PO DAILY 12/18/17 12/18/17 12/17/17 traZODone [Desyrel] 100 mg PO QHS 12/18/17 12/18/17 12/17/17 Previous Rx's Medication Instructions Recorded Last Taken Type Sertraline [Zoloft] 100 mg PO QDAY tablet 01/28/15 12/17/17 Rx Tamsulosin [Flomax] 0.4 mg PO BID capsule 01/28/15 12/17/17 Rx Ibuprofen [Motrin] 600 mg PO Q8H PRN #14 tablet 12/12/17 12/17/17 Rx Nitrofurantoin [place]/M-Cryst 100 mg PO Q12HR #11 capsule 12/20/17 Unknown Rx [Macrobid CAP] Sertraline [Zoloft] 100 mg PO QDAY #30 tablet 12/20/17 Unknown Rx traZODone [Desyrel] 100 mg PO QHS #30 tablet 12/20/17 Unknown Rx Ondansetron [Zofran Odt] 4 mg PO Q8H PRN #10 tab.rapdis 02/20/18 Unknown Rx Meclizine [Antivert] 25 mg PO TID PRN 10 Days #10 tablet 03/06/18 Unknown Rx levoFLOXacin [Levaquin] 750 mg PO QDAY 10 Days #10 tablet 03/06/18 Unknown Rx Promethazine [Phenergan TAB] 25 mg PO Q8HR PRN #12 tab 03/18/18 Unknown Rx Allergies Allergy/AdvReac Type Severity Reaction Status Date / Time No Known Allergies Allergy Verified 12/11/17 23:40 ED Review of Systems ROS: Stated complaint: DIZZY/NAUSEA Other details as noted in HPI Comment: All other systems reviewed and negative Constitutional: denies: chills, fever, weakness Eyes: denies: eye pain, vision change ENT: denies: throat pain, hearing loss, epistaxis, congestion Respiratory: denies: cough, orthopnea, shortness of breath, SOB with exertion, SOB at rest, stridor, wheezing Cardiovascular: denies: chest pain, palpitations, dyspnea on exertion, edema, syncope, paroxysmal nocturnal dyspnea Gastrointestinal: denies: abdominal pain, nausea, vomiting, diarrhea, constipation, hematemesis, hematochezia Musculoskeletal: denies: back pain, joint swelling, arthralgia, myalgia Skin: denies: rash Neurological: denies: headache, numbness, paresthesias, abnormal gait, vertigo ED Past Medical Hx - Past Medical History Previous Medical History?: Yes Hx Hypertension: Yes (X 16 YRS) Hx Congestive Heart Failure: No Hx Diabetes: Yes Hx GERD: Yes Hx Seizures: Yes (ON MEDS- LAST SEIZURE 2 YRS AGO) Hx Asthma: Yes (ON INHALERS) Hx COPD: No Additional medical history: MRChantal legally blind. pneumonia - Surgical History Past Surgical History?: Yes Additional Surgical History: METAL PLATE in the back of his head. 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 thyroid surgery - Family History Family history: hypertension - Social History Smoking Status: Never Smoker Substance Use Type: None - Medications Home Medications: Home Medications Medication Instructions Recorded Confirmed Last Taken Type Fluticasone/Salmeterol [Advair 1 puff IH BID 01/23/15 12/18/17 12/17/17 History Diskus 250-50 mcg] Sertraline [Zoloft] 100 mg PO QDAY tablet 01/28/15 12/18/17 12/17/17 Rx Tamsulosin [Flomax] 0.4 mg PO BID capsule 01/28/15 12/18/17 12/17/17 Rx Docusate Sodium [Colace CAP] 100 mg PO BID 10/08/16 12/18/17 12/17/17 History Psyllium Husk [Metamucil] 0.52 gm PO DAILY 10/08/16 12/18/17 12/17/17 History diphenhydrAMINE [Benadryl CAP] 50 mg PO QHS 10/08/16 12/18/17 12/17/17 History levETIRAcetam [Keppra TAB] 1,000 mg PO BID 10/08/16 12/18/17 12/17/17 History Ibuprofen [Motrin] 600 mg PO Q8H PRN #14 tablet 12/12/17 12/18/17 12/17/17 Rx Omeprazole 20 mg PO DAILY 12/18/17 12/18/17 12/17/17 History traZODone [Desyrel] 100 mg PO QHS 12/18/17 12/18/17 12/17/17 History Nitrofurantoin [place]/M-Cryst 100 mg PO Q12HR #11 capsule 12/20/17 Unknown Rx [Macrobid CAP] Sertraline [Zoloft] 100 mg PO QDAY #30 tablet 12/20/17 Unknown Rx traZODone [Desyrel] 100 mg PO QHS #30 tablet 06/01/18 Unknown Rx Ondansetron [Zofran Odt] 4 mg PO Q8H PRN #10 tab.rapdis 02/20/18 Unknown Rx Meclizine [Antivert] 25 mg PO TID PRN 10 Days #10 tablet 03/06/18 Unknown Rx levoFLOXacin [Levaquin] 750 mg PO QDAY 10 Days #10 tablet 03/06/18 Unknown Rx Promethazine [Phenergan TAB] 25 mg PO Q8HR PRN #12 tab 03/18/18 Unknown Rx ED Physical Exam - General Limitations: Other General appearance: alert, in no apparent distress - Head Head exam: Present: atraumatic, normocephalic, normal inspection - Eye Eye exam: Present: normal appearance, PERRL, EOMI Pupils: Present: normal accommodation - ENT ENT exam: Present: normal exam, normal orophraynx, mucous membranes moist, TM's normal bilaterally, normal external ear exam - Neck Neck exam: Present: normal inspection, full ROM, lymphadenopathy. Absent: tenderness - Respiratory Respiratory exam: Present: normal lung sounds bilaterally. Absent: respiratory distress, chest wall tenderness - Cardiovascular Cardiovascular Exam: Present: regular rate, normal rhythm, normal heart sounds. Absent: systolic murmur, diastolic murmur - GI/Abdominal GI/Abdominal exam: Present: soft, normal bowel sounds. Absent: distended, tenderness, rigid, organomegaly, mass - Extremities Exam Extremities exam: Present: normal inspection, full ROM, normal capillary refill , other (No cce. + 2 pulses in all extremities, no neurovascular compromise). Absent: tenderness, pedal edema, joint swelling, calf tenderness - Back Exam Back exam: Present: normal inspection, full ROM, other (social/his lungs a little bright). Absent: tenderness, CVA tenderness (R), CVA tenderness (L), muscle spasm, paraspinal tenderness, vertebral tenderness, rash noted - Neurological Exam Neurological exam: Present: alert, oriented X3, normal gait - Psychiatric Psychiatric exam: Present: normal affect, normal mood - Skin Skin exam: Present: warm, dry, intact, normal color. Absent: rash ED Course Vital Signs 03/17/18 03/18/18 03/18/18 19:46 03:19 09:29 Temperature 98.8 F 97.9 F 98.4 F Pulse Rate 84 65 89 Respiratory 16 18 20 Rate Blood Pressure 151/93 125/90 Blood Pressure 153/124 [Right] O2 Sat by Pulse 97 98 100 Oximetry 03/18/18 11:33 Temperature 98.0 F Pulse Rate 78 Respiratory 18 Rate Blood Pressure Blood Pressure 126/85 [Right] O2 Sat by Pulse 98 Oximetry - Reevaluation(s) Reevaluation #1: 03/18/18 15:38 Patient received normal saline 1 L, morphine 4 mg IV and Zofran 4 mg IV and he requested some more pain medicine so he received [place] 5/325 2 tablets by mouth and Zofran 8 mg ODT and he voiced relief of pain and said he is ready to go. Patient able to drink ice water and emergency room and he ate a sandwich. ED Medical Decision Making - Lab Data Result diagrams: 03/17/18 20:15 03/17/18 20:15 Lab Results 03/17/18 03/17/18 03/18/18 Range/Units 20:15 20:15 Unknown WBC 9.4 (4.5-11.0) K/mm3 RBC 4.65 (3.65-5.03) M/mm3 Hgb 15.1 (11.8-15.2) gm/dl Hct 43.0 (35.5-45.6) % MCV 93 (84-94) fl MCH 33 H (28-32) pg MCHC 35 H (32-34) % RDW 13.3 (13.2-15.2) % Plt Count 215 (140-440) K/mm3 Lymph % (Auto) 13.7 (13.4-35.0) % [place] % (Auto) 7.7 H (0.0-7.3) % Eos % (Auto) 1.3 (0.0-4.3) % Baso % (Auto) 1.1 (0.0-1.8) % Lymph # 1.3 (1.2-5.4) K/mm3 [place] # 0.7 (0.0-0.8) K/mm3 Eos # 0.1 (0.0-0.4) K/mm3 Baso # 0.1 (0.0-0.1) K/mm3 Seg Neutrophils % 76.2 H (40.0-70.0) % Seg Neutrophils # 7.1 (1.8-7.7) K/mm3 Sodium 132 L (137-145) mmol/L Potassium 4.2 (3.6-5.0) mmol/L Chloride 92.8 L (98-107) mmol/L Carbon Dioxide 26 (22-30) mmol/L Anion Gap 17 mmol/L BUN 11 (9-20) mg/dL Creatinine 0.8 (0.8-1.5) mg/dL Estimated GFR > 60 ml/min BUN/Creatinine Ratio 14 % Glucose 98 (75-100) mg/dL Calcium 9.3 (8.4-10.2) mg/dL Total Bilirubin 0.20 (0.1-1.2) mg/dL AST 15 (5-40) units/L ALT 9 (7-56) units/L Alkaline Phosphatase 94 (35-129) units/L Total Protein 6.9 (6.3-8.2) g/dL Albumin 4.3 (3.9-5) g/dL Albumin/Globulin Ratio 1.7 % Urine Color Straw (Yellow) Urine Turbidity Clear (Clear) Urine pH 7.0 (5.0-7.0) Ur Specific Ward 1.008 (1.003-1.030) Urine Protein <15 mg/dl (Negative) mg/dL Urine Glucose (UA) Neg (Negative) mg/dL Urine Ketones Neg (Negative) mg/dL Urine Blood Neg (Negative) Urine Nitrite Neg (Negative) Urine Bilirubin Neg (Negative) Urine Urobilinogen < 2.0 (<2.0) mg/dL Ur Leukocyte Esterase Tr (Negative) Urine WBC (Auto) 1.0 (0.0-6.0) /HPF Urine RBC (Auto) 1.0 (0.0-6.0) /HPF U Epithel Cells (Auto) 1.0 (0-13.0) /HPF - Radiology Data Radiology results: report reviewed CT scan of the abdomen and pelvis without contrast. This was dictated by radiologist and report reviewed by myself and patient were normal CT. Patient: FLORIDA CROCKER MR#: [id number] : 1975 Acct:[id number] Age/Sex: 42 / M ADM Date: 03/17/18 Loc: ED Attending Dr: Ordering Physician: BESS RICK MD Date of Service: 03/18/18 Procedure(s): CT abdomen pelvis wo con Accession Number(s): [id number] cc: BESS RICK MD CT ABDOMEN PELVIS WITHOUT CONTRAST: HISTORY: abdominal pain. COMPARISON: 02/04/15. TECHNIQUE: Helical CT in 1.25mm intervals without IV contrast. Sagittal and coronal reconstructions. FINDINGS: Lung bases: Normal. Liver: Normal. Biliary system: Normal. Pancreas: Normal. Spleen: Normal. Kidneys/ureters/bladder: Normal. Adrenal glands: Normal. Aorta: Normal. Intestines: Normal. Appendix: Normal. Pelvic viscera: Normal. Ascites: None. Adenopathy: None. Musculoskeletal: Normal. IMPRESSION: Unremarkable CT scan of the abdomen and pelvis without contrast. No acute inflammatory process is detected. Transcribed By: TTR Dictated By: MARIO MEDLEY JR, MD Electronically Authenticated By: MARIO MEDLEY JR, MD Signed Date/Time: 03/18/181056 DD/ 55 TD/TT: 03/18/18 105 - Medical Decision Making This is a 42-year-old male here for the second time within a week complaining of abdominal pain at different areas. Patient told me that he does not get along with his caregivers to she brings him to the hospital and then takes a month later. This patient was screened by Dr. Rick and orders. I saw and examined patient and his examination is normal. CT scan of the abdomen and pelvis without contrast shows normal exam without any acute abnormality this was dictated by radiologist report reviewed by myself. CBC stable and CMP stable. Urinalysis trace leukocyte E[place]ace otherwise normal. I discussed the patient and is CT scan results and also his laboratory results and I told them that he needs to follow-up with driver license examiner as previously instructed on his last visit. Patient voiced understanding and his vital signs stable and he is afebrile and he has no nausea or any pain. Discharged home to follow up with his primary care doctor in 2 days. - Differential Diagnosis SBO, pyelonephritis, kidney stones, abdominal mass, enteritis Critical care attestation.: If time is entered above; I have spent that time in minutes in the direct care of this critically ill patient, excluding procedure time. ED Disposition Clinical Impression: Abdominal pain Qualifiers: Abdominal location: lower abdomen, unspecified Qualified Code(s): R10.30 - Lower abdominal pain, unspecified Nausea & vomiting Qualifiers: Vomiting type: unspecified Vomiting Intractability: non-intractable Qualified Code(s): R11.2 - Nausea with vomiting, unspecified Disposition: DC-01 TO HOME OR SELFCARE Is pt being admited?: No Does the pt Need Aspirin: No Condition: Stable Instructions: Acute Nausea and Vomiting (ED), Abdominal Pain (ED) Additional Instructions: Please state medication as instructed Take nausea medication as prescribed but please do not drive or operate heavy machinery while driver license reviewing officer taking this medication as it causes drowsiness Please increase her fluid intake If his symptoms return, return to the emergency room Prescriptions: Promethazine [Phenergan TAB] 25 mg PO Q8HR PRN #12 tab PRN Reason: Nausea Referrals: [facility] [Outside] - 2-3 Days PRIMARY CARE, [Primary Care Provider] - 2-3 Days follow-up with, behavioral health specialist [Other] - 3-5 Days Forms: Work/School Release Form(ED)
--- NOTE | 2018-03-18 10:58 | Cat Scan Report ---
CT ABDOMEN PELVIS WITHOUT CONTRAST: HISTORY: abdominal pain. COMPARISON: 02/04/15. TECHNIQUE: Helical CT in 1.25mm intervals without IV contrast. Sagittal and coronal reconstructions. FINDINGS: Lung bases: Normal. Liver: Normal. Biliary system: Normal. Pancreas: Normal. Spleen: Normal. Kidneys/ureters/bladder: Normal. Adrenal glands: Normal. Aorta: Normal. Intestines: Normal. Appendix: Normal. Pelvic viscera: Normal. Ascites: None. Adenopathy: None. Musculoskeletal: Normal. IMPRESSION: Unremarkable CT scan of the abdomen and pelvis without contrast. No acute inflammatory process is detected.
[2018-03-18 11:07] LABS: Bilirubin,Urine NEG (Negative); Blood,Urine NEG (Negative); Color,Urine Straw (Yellow); Protein,Urine <15 mg/dL mg/dL (Negative); Urobilinogen,Urine < 2.0 mg/dL (<2.0)
[2018-03-18] MEDS ORDERED: NORCO 5/325 PO ONE (11:40)
[2018-03-18] MEDS ORDERED: ZOFRAN ODT PO ONE (11:40)
[2018-03-18 16:39] VITALS: BP 163/104
== END 2018-03-18 16:15 | disposition home or self-care (01) ==
LOC: ED 19:40
DX: R10.30 Lower abdominal pain, unspecified (principal); R11.2 Nausea with vomiting, unspecified; I10 Essential (primary) hypertension; E11.9 Type 2 diabetes mellitus without complications; K21.9 Gastro-esophageal reflux disease without esophagitis; J45.909 Unspecified asthma, uncomplicated; Z79.899 Other long term (current) drug therapy
CPT/HCPCS: 36415; 74176; 80053; 81001; 85025; 96374; 96375; 99284; J2270; J2405; J7030; Q0162

== ENCOUNTER 2018-10-01 17:46 | Emergency (ER) | payer MEDICARE ==
[2018-10-01] MEDS ORDERED: NACL 0.9% 1000 ML 1,000 ML IV ONE (18:09)
--- NOTE | 2018-10-01 18:11 | Emergency Department Report ---
Chief Complaint: Abdominal Pain Stated Complaint: ABD PAIN Time Seen by Provider: 10/01/18 18:02 - HPI History of Present Illness: This is a 42 y.o. male that presents with abdominal pain primarily on RUQ. Patient seen here and diagnosed with muscle spasms and started on baclofen by Dr. Bee. H of GERD, MDD, schizophrenia, and anxiety. - ROS Review of Systems: GI: abdominal pain - Exam Vital Signs: Vital Signs 10/01/18 18:02 Temperature 98.1 F Pulse Rate 88 Respiratory 18 Rate Blood Pressure 157/89 O2 Sat by Pulse 97 Oximetry MSE screening note: Focused history and physical exam performed. Due to findings the following was ordered: labs ED Disposition for MSE Condition: Stable
[2018-10-01 18:44] LABS: Basophils # (Auto) 0.1 K/mm3 (0.0-0.1); Basophils % (Auto) 0.9 % (0.0-1.8); Eosinophils # (Auto) 0.1 K/mm3 (0.0-0.4); Eosinophils % (Auto) 1.5 % (0.0-4.3); Hematocrit 43.2 % (35.5-45.6); Hemoglobin 15.3 gm/dl (11.8-15.2); Lymphocytes # (Auto) 1.5 K/mm3 (1.2-5.4); Lymphocytes % (Auto) 21.6 % (13.4-35.0); Mean Corpuscular HGB Conc 36 % (32-34); Mean Corpuscular Volume 94 fl (84-94); Monocytes # (Auto) 0.5 K/mm3 (0.0-0.8); Monocytes % (Auto) 7.7 % (0.0-7.3); Platelet Count 199 K/mm3 (140-440); Red Blood Count 4.59 M/mm3 (3.65-5.03); Red Cell Distribution Width 12.7 % (13.2-15.2)
[2018-10-01 19:05] LABS: Alanine Aminotransferase 12 units/L (7-56); Albumin 4.5 g/dL (3.9-5); BUN/Creatinine Ratio 11; Blood Urea Nitrogen 9 mg/dL (9-20); Calcium 9.3 mg/dL (8.4-10.2); Hemolysis Index 14
--- NOTE | 2018-10-01 22:00 | Emergency Department Report ---
ED Abdominal Pain HPI - General Chief Complaint: Abdominal Pain Stated Complaint: ABD PAIN Time Seen by Provider: 10/01/18 18:02 Source: patient, EMS Mode of arrival: Wheelchair Limitations: No Limitations - History of Present Illness Initial Comments: 42-year-old male who has chronic abdominal pain, presents here with worsening right lower quadrant pain. Patient states he was seen by his finisher polisher on yesterday and mentioned the abdominal pain to her. Patient states he was advised to come to the ER if the pain got worse, which is what he did. The patient denies vomiting, diarrhea. MD Complaint: abdominal pain -: days(s) (2) Location: RLQ Radiation: none Migration to: no migration Severity: moderate Severity scale (0 -10): 10 Quality: sharp Consistency: constant Improves With: nothing Worsens With: nothing Associated Symptoms: denies: nausea, vomiting, diarrhea Treatments Prior to Arrival: other (baclofen) - Related Data Home Medications Medication Instructions Recorded Confirmed Last Taken Fluticasone/Salmeterol [Advair 1 puff IH BID 01/23/15 09/02/18 12/17/17 Diskus 250-50 mcg] Docusate Sodium [Colace CAP] 100 mg PO BID 10/08/16 09/02/18 12/17/17 Psyllium [place] [Metamucil] 0.52 gm PO DAILY 10/08/16 09/02/18 12/17/17 diphenhydrAMINE [Benadryl CAP] 50 mg PO QHS 10/08/16 09/02/18 12/17/17 levETIRAcetam [Keppra TAB] 1,000 mg PO TID 10/08/16 09/02/18 12/17/17 Omeprazole 20 mg PO DAILY 12/18/17 09/02/18 12/17/17 Folic Acid [Folvite] 1 mg PO QDAY 09/02/18 09/02/18 Unknown Sertraline [Zoloft] 150 mg PO QDAY 09/02/18 09/02/18 Unknown risperiDONE [RisperDAL] 1 mg PO TID 09/02/18 09/02/18 Unknown Previous Rx's Medication Instructions Recorded Last Taken Type Tamsulosin [Flomax] 0.4 mg PO BID capsule 01/28/15 12/17/17 Rx traZODone [Desyrel] 100 mg PO QHS #30 tablet 12/20/17 Unknown Rx Baclofen [Lioresal] 10 mg PO TID #90 tablet 09/05/18 Unknown Rx Allergies Allergy/AdvReac Type Severity Reaction Status Date / Time No Known Allergies Allergy Verified 12/11/17 23:40 ED Review of Systems ROS: Stated complaint: ABD PAIN Other details as noted in HPI Comment: All other systems reviewed and negative Constitutional: denies: fever Gastrointestinal: abdominal pain. denies: vomiting, diarrhea ED Past Medical Hx - Past Medical History Hx Hypertension: Yes Hx Congestive Heart Failure: No Hx Diabetes: Yes Hx GERD: Yes Hx Seizures: Yes (Last seizure 4 years ago) Hx Asthma: Yes Hx COPD: No Additional medical history: legally blind. pneumonia - Surgical History Past Surgical History?: Yes Additional Surgical History: METAL PLATE in the back of his head. 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 thyroid surgery - Social History Smoking Status: Never Smoker Substance Use Type: None - Medications Home Medications: Home Medications Medication Instructions Recorded Confirmed Last Taken Type Fluticasone/Salmeterol [Advair 1 puff IH BID 01/23/15 09/02/18 12/17/17 History Diskus 250-50 mcg] Tamsulosin [Flomax] 0.4 mg PO BID capsule 01/28/15 09/02/18 12/17/17 Rx Docusate Sodium [Colace CAP] 100 mg PO BID 10/08/16 09/02/18 12/17/17 History Psyllium Hus[place] [Metamucil] 0.52 gm PO DAILY 10/08/16 09/02/18 12/17/17 History diphenhydrAMINE [Benadryl CAP] 50 mg PO QHS 10/08/16 09/02/18 12/17/17 History levETIRAcetam [Keppra TAB] 1,000 mg PO TID 10/08/16 09/02/18 12/17/17 History Omeprazole 20 mg PO DAILY 12/18/17 09/02/18 12/17/17 History traZODone [Desyrel] 100 mg PO QHS #30 tablet 12/20/17 09/02/18 Unknown Rx Folic Acid [Folvite] 1 mg PO QDAY 09/02/18 09/02/18 Unknown History Sertraline [Zoloft] 150 mg PO QDAY 09/02/18 09/02/18 Unknown History risperiDONE [RisperDAL] 1 mg PO TID 09/02/18 09/02/18 Unknown History Baclofen [Lioresal] 10 mg PO TID #90 tablet 09/05/18 Unknown Rx ED Physical Exam - General Limitations: No Limitations General appearance: alert, in no apparent distress - Head Head exam: Present: atraumatic, normocephalic - Eye Eye exam: Present: normal appearance - ENT ENT exam: Present: mucous membranes moist - Neck Neck exam: Present: normal inspection - Respiratory Respiratory exam: Present: normal lung sounds bilaterally. Absent: respiratory distress - Cardiovascular Cardiovascular Exam: Present: regular rate, normal rhythm - GI/Abdominal GI/Abdominal exam: Present: soft, tenderness (mild RLQ tenderness). Absent: distended - Extremities Exam Extremities exam: Present: normal inspection - Neurological Exam Neurological exam: Present: alert, oriented X3 - Psychiatric Psychiatric exam: Present: normal affect, normal mood - Skin Skin exam: Present: warm, dry, intact, normal color ED Course Vital Signs 10/01/18 10/01/18 10/01/18 18:02 21:16 21:30 Temperature 98.1 F Pulse Rate 88 87 Respiratory 18 25 H Rate Blood Pressure 157/89 O2 Sat by Pulse 97 98 97 Oximetry 10/01/18 10/01/18 10/01/18 21:46 22:00 22:16 Temperature Pulse Rate 99 H 87 86 Respiratory 23 17 13 Rate Blood Pressure O2 Sat by Pulse 96 96 96 Oximetry 10/01/18 10/01/18 10/01/18 22:30 22:45 23:26 Temperature Pulse Rate 85 79 Respiratory 25 H 21 Rate Blood Pressure O2 Sat by Pulse 96 97 97 Oximetry 10/01/18 10/01/18 10/01/18 23:31 23:45 23:49 Temperature Pulse Rate 81 Respiratory 22 18 Rate Blood Pressure 123/80 123/80 O2 Sat by Pulse 97 96 99 Oximetry 10/02/18 00:00 Temperature Pulse Rate 81 Respiratory 15 Rate Blood Pressure 138/87 O2 Sat by Pulse 95 Oximetry ED Medical Decision Making - Lab Data Result diagrams: 10/01/18 18:19 10/01/18 18:19 - Radiology Data Radiology results: report reviewed - Medical Decision Making 42-year-old male with acute exacerbation of chronic right lower quadrant abdominal pain. Patient seen by finisher polisher on yesterday for same pain. Labs unremarkable, CT scan does not show any acute abnormality. Patient advised to continue with current treatment plan and follow up with his gastro enterologist on an outpatient basis. Return precautions given. - Differential Diagnosis chronic pain, appendicitis, kidney stone Critical care attestation.: If time is entered above; I have spent that time in minutes in the direct care of this critically ill patient, excluding procedure time. ED Disposition Clinical Impression: Abdominal pain Disposition: DC-01 TO HOME OR SELFCARE Is pt being admited?: No Condition: Stable Instructions: Abdominal Pain (ED) Referrals: [facility] [Provider Group] - 3-5 Days Time of Disposition: 00:08
[2018-10-01 22:32] LABS: Bilirubin,Urine NEG (Negative); Blood,Urine NEG (Negative); Color,Urine Colorless (Yellow); Protein,Urine <15 mg/dL mg/dL (Negative); Urobilinogen,Urine < 2.0 mg/dL (<2.0)
--- NOTE | 2018-10-01 23:27 | Cat Scan Report ---
PROCEDURE: CT ABDOMEN PELVIS WO CON TECHNIQUE: Computerized axial tomography of the abdomen and pelvis was performed after the IV inject ion of iodinated nonionic contrast. CT DOSE LENGTH PRODUCT: 1214 mGycm HISTORY: RLQ pain COMPARISONS: None . FINDINGS: Visualized lower thorax: No significant abnormality. Liver: Normal size and attenuation. Spleen: Normal size and attenuation. Gallbladder and biliary system: Normal. Pancreas: Normal. Adrenals: Normal. Kidneys: Normal. GI tract: The stomach is normal. The small bowel has normal caliber. The cecum, appendix and colon a re normal. There is moderate fecal debris within the colon. . Lymph nodes and mesentery: Normal. Vasculature: Normal.. Bladder: The urinary bladder is moderately distended.. Reproductive organs: Normal. Peritoneum: No free fluid. Musculoskeletal structures: Mild degenerative changes of the spine. There is been previous Gamma nail ing of the proximal left femur.. Other: None . IMPRESSION: There is no evidence of intestinal or urinary tract obstruction. No ileus or enteritis. The appendix is normal. . This document is electronically signed by Racheal Palmer DO., October 01 2018 11:24:49 PM ET
[2018-10-01] MEDS ORDERED: BENTYL PO ONE (23:45)
[2018-10-01] MEDS ORDERED: BENTYL ONE (23:45)
[2018-10-02 00:16] VITALS: BP 138/87
== END 2018-10-02 00:40 | disposition home or self-care (01) ==
LOC: ED 17:46
DX: R10.31 Right lower quadrant pain (principal); G89.29 Other chronic pain; I10 Essential (primary) hypertension; E11.9 Type 2 diabetes mellitus without complications; K21.9 Gastro-esophageal reflux disease without esophagitis; J45.909 Unspecified asthma, uncomplicated; Z79.899 Other long term (current) drug therapy
CPT/HCPCS: 36415; 74176; 80053; 81001; 85025

== ENCOUNTER 2018-10-27 19:36 | Emergency (ER) | payer MEDICARE ==
[2018-10-27 20:37] VITALS: BP 141/97
--- NOTE | 2018-10-27 20:38 | Emergency Department Report ---
Blank Doc - Documentation Documentation: 42 y/o male with Chronic back pain no recent trauma. Currently on meds.
[2018-10-28] MEDS ORDERED: TORADOL IM ONE (02:58)
--- NOTE | 2018-10-28 02:58 | Emergency Department Report ---
ED Back Pain/Injury HPI - General Chief Complaint: Back Pain/Injury Stated Complaint: CHRONIC BACK PAIN Time Seen by Provider: 10/28/18 02:38 Source: EMS Limitations: No Limitations - History of Present Illness Initial Comments: Pt is a 42 yo male who presents to the ED with c/o upper and middle back pain that he states began at 6 PM last night. The patient has a hx of chronic back pain and states he has been taking baclofen three times a day. He denies any fall, injury, or trauma. He denies any numbness, weakness, or urinary/bowel incontinence. Pt denies any heavy lifting. - Related Data Home Medications Medication Instructions Recorded Confirmed Last Taken Fluticasone/Salmeterol [Advair 1 puff IH BID 01/23/15 09/02/18 12/17/17 Diskus 250-50 mcg] Docusate Sodium [Colace CAP] 100 mg PO BID 10/08/16 09/02/18 12/17/17 Psyllium Husk [Metamucil] 0.52 gm PO DAILY 10/08/16 09/02/18 12/17/17 diphenhydrAMINE [Benadryl CAP] 50 mg PO QHS 10/08/16 09/02/18 12/17/17 levETIRAcetam [Keppra TAB] 1,000 mg PO TID 10/08/16 09/02/18 12/17/17 Omeprazole 20 mg PO DAILY 12/18/17 09/02/18 12/17/17 Folic Acid [Folvite] 1 mg PO QDAY 09/02/18 09/02/18 Unknown Sertraline [Zoloft] 150 mg PO QDAY 09/02/18 09/02/18 Unknown risperiDONE [RisperDAL] 1 mg PO TID 09/02/18 09/02/18 Unknown Previous Rx's Medication Instructions Recorded Last Taken Type Tamsulosin [Flomax] 0.4 mg PO BID capsule 01/28/15 12/17/17 Rx traZODone [Desyrel] 100 mg PO QHS #30 tablet 12/20/17 Unknown Rx Diclofenac Sodium 75 mg PO DAILY PRN #20 tablet.dr 10/28/18 Unknown Rx Prednisone [predniSONE 10 mg 10 mg PO .TAPER 6 Days #1 tab.ds.pk 10/28/18 Unknown Rx (6-Day Pack, 21 Tabs)] Allergies Allergy/AdvReac Type Severity Reaction Status Date / Time No Known Allergies Allergy Verified 12/11/17 23:40 ED Review of Systems ROS: Stated complaint: CHRONIC BACK PAIN Other details as noted in HPI Comment: All other systems reviewed and negative ED Past Medical Hx - Past Medical History Hx Hypertension: Yes Hx Congestive Heart Failure: No Hx Diabetes: Yes Hx GERD: Yes Hx Seizures: Yes (Last seizure 4 years ago) Hx Asthma: Yes Hx COPD: No Additional medical history: legally blind. pneumonia - Surgical History Additional Surgical History: METAL PLATE in the back of his head. 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 thyroid surgery - Social History Smoking Status: Never Smoker Substance Use Type: None - Medications Home Medications: Home Medications Medication Instructions Recorded Confirmed Last Taken Type Fluticasone/Salmeterol [Advair 1 puff IH BID 01/23/15 09/02/18 12/17/17 History Diskus 250-50 mcg] Tamsulosin [Flomax] 0.4 mg PO BID capsule 01/28/15 09/02/18 12/17/17 Rx Docusate Sodium [Colace CAP] 100 mg PO BID 10/08/16 09/02/18 12/17/17 History Psyllium Husk [Metamucil] 0.52 gm PO DAILY 10/08/16 09/02/18 12/17/17 History diphenhydrAMINE [Benadryl CAP] 50 mg PO QHS 10/08/16 09/02/18 12/17/17 History levETIRAcetam [Keppra TAB] 1,000 mg PO TID 10/08/16 09/02/18 12/17/17 History Omeprazole 20 mg PO DAILY 12/18/17 09/02/18 12/17/17 History traZODone [Desyrel] 100 mg PO QHS #30 tablet 12/20/17 09/02/18 Unknown Rx Folic Acid [Folvite] 1 mg PO QDAY 09/02/18 09/02/18 Unknown History Sertraline [Zoloft] 150 mg PO QDAY 09/02/18 09/02/18 Unknown History risperiDONE [RisperDAL] 1 mg PO TID 09/02/18 09/02/18 Unknown History Diclofenac Sodium 75 mg PO DAILY PRN #20 tablet. 10/28/18 Unknown Rx Prednisone [predniSONE 10 mg 10 mg PO .TAPER 6 Days #1 tab.ds.pk 10/28/18 Unknown Rx (6-Day Pack, 21 Tabs)] ED Physical Exam - General Limitations: No Limitations General appearance: alert, in no apparent distress - Head Head exam: Present: atraumatic, normocephalic - Eye Eye exam: Present: normal appearance - ENT ENT exam: Present: mucous membranes moist - Respiratory Respiratory exam: Present: normal lung sounds bilaterally. Absent: respiratory distress, wheezes, rales, rhonchi, stridor, chest wall tenderness, accessory muscle use, decreased breath sounds, prolonged expiratory - Cardiovascular Cardiovascular Exam: Present: regular rate, normal rhythm, normal heart sounds. Absent: systolic murmur, diastolic murmur, rubs, gallop - Back Exam Back exam: Present: normal inspection, full ROM, paraspinal tenderness (bilateral thoracic and lumbar paraspinal tenderness, no midline tenderness of the C-spine, T-spine, or L-spine, no step offs, no deformities) - Neurological Exam Neurological exam: Present: alert, oriented X3, CN II-XII intact, normal gait. Absent: motor sensory deficit - Psychiatric Psychiatric exam: Present: normal affect, normal mood - Skin Skin exam: Present: warm, dry, intact ED Course Vital Signs 10/27/18 20:36 Temperature 98.4 F Pulse Rate 85 Respiratory 18 Rate Blood Pressure 141/97 O2 Sat by Pulse 95 Oximetry ED Medical Decision Making - Medical Decision Making Pt is a 42 yo male who presents to the ED with c/o upper and middle back pain that he states began at 6 PM last night. The patient has a hx of chronic back pain and states he has been taking baclofen three times a day. He denies any fall, injury, or trauma. He denies any numbness, weakness, or urinary/bowel incontinence. Pt denies any heavy lifting. Pt given toradol for pain. Pt has had previous CTs of the T-spine and L-spine which show bulging disc with some canal stenosis. Will send pt home with anti-inflammatory and course of steroids. Will have pt follow up with [facility]surgery [facility] spine. Discussed with pt if begin to experience numbness, weakness, or bowel/bladder incontinence return to the ED immediately. - Differential Diagnosis muscle strain, chronic back pain, bulging disc Critical care attestation.: If time is entered above; I have spent that time in minutes in the direct care of this critically ill patient, excluding procedure time. ED Disposition Clinical Impression: Chronic back pain Qualifiers: Back pain location: back pain in unspecified location Back pain laterality: bilateral Qualified Code(s): M54.9 - Dorsalgia, unspecified; G89.29 - Other chronic pain Disposition: TO HOME OR SELFCARE Is pt being admited?: No Does the pt Need Aspirin: No Condition: Stable Instructions: Chronic Back Pain (ED) Additional Instructions: Please follow up with [facility] spine in the next 2-3 days. Please follow up with your primary care doctor in the next 2-3 days. take medication as prescribed. Return to the emergency room for any new or worsening symptoms as discussed. [facility] [place] [facility] in the [place], [place] Address: [address] [place] [address], [place] [address] Prescriptions: Diclofenac Sodium 75 mg PO DAILY PRN #20 tablet.dr PRN Reason: Pain, Moderate (4-6) Prednisone [predniSONE 10 mg (6-Day Pack, 21 Tabs)] 10 mg PO .TAPER 6 Days #1 tab.ds.pk Referrals: TUCKER RUSSELL MD [Primary Care Provider] - 2-3 Days Time of Disposition: 03:08 Print Language: LAO
== END 2018-10-28 03:32 | disposition home or self-care (01) ==
LOC: ED 19:36
DX: G89.29 Other chronic pain (principal); M54.6 Pain in thoracic spine; I10 Essential (primary) hypertension; E11.9 Type 2 diabetes mellitus without complications; K21.9 Gastro-esophageal reflux disease without esophagitis; J45.909 Unspecified asthma, uncomplicated
CPT/HCPCS: 96372; 99283; J1885

== ENCOUNTER 2018-11-10 17:27 | Emergency (ER) | payer MEDICARE ==
[2018-11-10] MEDS ORDERED: ASPIRIN PO ONE (19:19)
[2018-11-10 19:35] LABS: Basophils % (Auto) 0.3 % (0.0-1.8); Eosinophils # (Auto) 0.1 K/mm3 (0.0-0.4); Eosinophils % (Auto) 0.6 % (0.0-4.3); Hematocrit 48.4 % (35.5-45.6); Hemoglobin 16.6 gm/dl (11.8-15.2); Lymphocytes # (Auto) 1.3 K/mm3 (1.2-5.4); Lymphocytes % (Auto) 10.8 % (13.4-35.0); Mean Corpuscular HGB Conc 34 % (32-34); Mean Corpuscular Volume 94 fl (84-94); Monocytes # (Auto) 0.8 K/mm3 (0.0-0.8); Monocytes % (Auto) 6.8 % (0.0-7.3); Platelet Count 217 K/mm3 (140-440); Red Blood Count 5.15 M/mm3 (3.65-5.03); Red Cell Distribution Width 12.9 % (13.2-15.2)
[2018-11-10 19:52] LABS: BUN/Creatinine Ratio 11; Blood Urea Nitrogen 8 mg/dL (9-20); Calcium 9.5 mg/dL (8.4-10.2); Hemolysis Index 15
--- NOTE | 2018-11-10 21:04 | XRay Report ---
PROCEDURE: XR CHEST ROUTINE 2V TECHNIQUE: PA and lateral chest radiographs were obtained. HISTORY: persistent cough with chest pain COMPARISONS: None. FINDINGS: Heart: Normal. Mediastinum/Vessels: Normal. Lungs/Pleural space: Normal. Bony thorax: No acute osseous abnormality. Degenerative changes of the thoracic spine. IMPRESSION: No acute cardiopulmonary disease.. This document is electronically signed by Ryan Iraheta MD., November 10 2018 09:02:46 PM ET
[2018-11-10] MEDS ORDERED: LIDOCAINE VISCOUS 2% PO ONE (23:33)
[2018-11-10] MEDS ORDERED: NACL 0.9% 1000 ML 1,000 ML IV ONE (23:33)
[2018-11-10] MEDS ORDERED: BENTYL PO ONE (23:33)
[2018-11-10] MEDS ORDERED: ALUM-MAG HYDROX-SIMETH 200-200-20MG/5ML PO ONE (23:33)
--- NOTE | 2018-11-11 00:15 | Emergency Department Report ---
ED Chest Pain HPI - General Chief Complaint: Chest Pain Stated Complaint: CHEST PAIN Time Seen by Provider: 11/10/18 23:07 Source: patient, EMS Mode of arrival: Ambulatory Limitations: No Limitations - History of Present Illness Initial Comments: Pt is a 42 yo male who presents to the ED with c/o substernal CP that began at 4 PM today. He describes the pain as sharp. He denies any SOB, radiation of the pain, emesis, or LE edema. Pt denies any recent long car or plane ride, recent surgery, or recent immobilization. Pt has had this same exact pain multiple times in the past. The patient was admitted to the hospital on 09/09 and had evaluations by both cardiology and GI. Cardiology r/o ACS. GI diagnosed pt with esophageal spasms. The patient had a normal stress treadmill test on 02/2018 and a normal echo on 11/2017. The patient denies any hx of HTN and states he is not on blood pressure medication. Severity scale (0 -10): 10 - Related Data Home Medications Medication Instructions Recorded Confirmed Last Taken Fluticasone/Salmeterol [Advair 1 puff IH BID 01/23/15 09/02/18 12/17/17 Diskus 250-50 mcg] Docusate Sodium [Colace CAP] 100 mg PO BID 10/08/16 09/02/18 12/17/17 Psyllium Husk [Metamucil] 0.52 gm PO DAILY 10/08/16 09/02/18 12/17/17 diphenhydrAMINE [Benadryl CAP] 50 mg PO QHS 10/08/16 09/02/18 12/17/17 levETIRAcetam [Keppra TAB] 1,000 mg PO TID 10/08/16 09/02/18 12/17/17 Omeprazole 20 mg PO DAILY 12/18/17 09/02/18 12/17/17 Folic Acid [Folvite] 1 mg PO QDAY 09/02/18 09/02/18 Unknown Sertraline [Zoloft] 150 mg PO QDAY 09/02/18 09/02/18 Unknown risperiDONE [RisperDAL] 1 mg PO TID 09/02/18 09/02/18 Unknown Previous Rx's Medication Instructions Recorded Last Taken Type Tamsulosin [Flomax] 0.4 mg PO BID capsule 01/28/15 12/17/17 Rx traZODone [Desyrel] 100 mg PO QHS #30 tablet 12/20/17 Unknown Rx Baclofen [Lioresal] 10 mg PO QHS PRN #10 tab 11/11/18 Unknown Rx Diclofenac Sodium 75 mg PO DAILY PRN #20 tablet. 11/11/18 Unknown Rx Prednisone [predniSONE 10 mg 10 mg PO .TAPER 6 Days #1 tab.ds.pk 11/11/18 Unknown Rx (6-Day Pack, 21 Tabs)] Allergies Allergy/AdvReac Type Severity Reaction Status Date / Time No Known Allergies Allergy Verified 12/11/17 23:40 Heart Score - HEART Score History: Slightly suspicious EKG: Normal Age: < 45 Risk factors: 1-2 risk factors Troponin: < normal limit HEART Score: 1 ED Review of Systems ROS: Stated complaint: CHEST PAIN Other details as noted in HPI Comment: All other systems reviewed and negative ED Past Medical Hx - Past Medical History Hx Hypertension: Yes Hx Congestive Heart Failure: No Hx Diabetes: Yes Hx GERD: Yes Hx Seizures: Yes (Last seizure 4 years ago) Hx Asthma: Yes Hx COPD: No Additional medical history: legally blind. pneumonia - Surgical History Additional Surgical History: METAL PLATE in the back of his head. 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 thyroid surgery - Social History Smoking Status: Unknown if ever smoked Substance Use Type: None - Medications Home Medications: Home Medications Medication Instructions Recorded Confirmed Last Taken Type Fluticasone/Salmeterol [Advair 1 puff IH BID 01/23/15 09/02/18 12/17/17 History Diskus 250-50 mcg] Tamsulosin [Flomax] 0.4 mg PO BID capsule 01/28/15 09/02/18 12/17/17 Rx Docusate Sodium [Colace CAP] 100 mg PO BID 10/08/16 09/02/18 12/17/17 History Psyllium Husk [Metamucil] 0.52 gm PO DAILY 10/08/16 09/02/18 12/17/17 History diphenhydrAMINE [Benadryl CAP] 50 mg PO QHS 10/08/16 09/02/18 12/17/17 History levETIRAcetam [Keppra TAB] 1,000 mg PO TID 10/08/16 09/02/18 12/17/17 History Omeprazole 20 mg PO DAILY 12/18/17 09/02/18 12/17/17 History traZODone [Desyrel] 100 mg PO QHS #30 tablet 12/20/17 09/02/18 Unknown Rx Folic Acid [Folvite] 1 mg PO QDAY 09/02/18 09/02/18 Unknown History Sertraline [Zoloft] 150 mg PO QDAY 09/02/18 09/02/18 Unknown History risperiDONE [RisperDAL] 1 mg PO TID 09/02/18 09/02/18 Unknown History Baclofen [Lioresal] 10 mg PO QHS PRN #10 tab 11/11/18 Unknown Rx Diclofenac Sodium 75 mg PO DAILY PRN #20 tablet.dr 11/11/18 Unknown Rx Prednisone [predniSONE 10 mg 10 mg PO .TAPER 6 Days #1 tab.ds.pk 11/11/18 Unknown Rx (6-Day Pack, 21 Tabs)] ED Physical Exam - General Limitations: No Limitations General appearance: alert, in no apparent distress - Head Head exam: Present: atraumatic, normocephalic - Eye Eye exam: Present: normal appearance - ENT ENT exam: Present: mucous membranes moist - Respiratory Respiratory exam: Present: normal lung sounds bilaterally, chest wall tenderness (mid sternal reproducible chest wall TTP, no deformity ). Absent: respiratory distress, wheezes, rales, rhonchi, stridor, accessory muscle use, decreased breath sounds, prolonged expiratory - Cardiovascular Cardiovascular Exam: Present: regular rate, normal rhythm, normal heart sounds. Absent: systolic murmur, diastolic murmur, rubs, gallop - GI/Abdominal GI/Abdominal exam: Present: soft, normal bowel sounds. Absent: distended, tenderness, guarding, rebound, rigid - Neurological Exam Neurological exam: Present: alert, oriented X3 - Psychiatric Psychiatric exam: Present: normal affect, normal mood - Skin Skin exam: Present: warm, dry, intact ED Course Vital Signs 11/10/18 11/11/18 19:15 01:05 Temperature 98.1 F Pulse Rate 91 H 71 Respiratory 18 17 Rate Blood Pressure 147/101 Blood Pressure 97/64 [Left] O2 Sat by Pulse 98 100 Oximetry GASTON score - Gaston Score Age > 65: (0) No Aspirin use within the Past 7 Days: (0) No 3 or more CAD Risk Factors: (0) No 2 or more Angina events in past 24 hrs: (0) No Known CAD with more than 50% Stenosis: (0) No Elevated Cardiac Markers: (0) No ST Deviation Greater than 0.5mm: (0) No GASTON Score: 0 ED Medical Decision Making - Lab Data Result diagrams: 11/10/18 19:23 11/10/18 19:23 Lab Results 11/10/18 11/10/18 11/10/18 Range/Units 19:23 19:23 23:05 WBC 12.1 H (4.5-11.0) K/mm3 RBC 5.15 H (3.65-5.03) M/mm3 Hgb 16.6 H (11.8-15.2) gm/dl Hct 48.4 H (35.5-45.6) % MCV 94 (84-94) fl MCH 32 (28-32) pg MCHC 34 (32-34) % RDW 12.9 L (13.2-15.2) % Plt Count 217 (140-440) K/mm3 Lymph % (Auto) 10.8 L (13.4-35.0) % [place] % (Auto) 6.8 (0.0-7.3) % Eos % (Auto) 0.6 (0.0-4.3) % Baso % (Auto) 0.3 (0.0-1.8) % Lymph # 1.3 (1.2-5.4) K/mm3 [place] # 0.8 (0.0-0.8) K/mm3 Eos # 0.1 (0.0-0.4) K/mm3 Baso # 0.0 (0.0-0.1) K/mm3 Seg Neutrophils % 81.5 H (40.0-70.0) % Seg Neutrophils # 9.9 H (1.8-7.7) K/mm3 Sodium 129 L (137-145) mmol/L Potassium 3.7 (3.6-5.0) mmol/L Chloride 89.3 L (98-107) mmol/L Carbon Dioxide 26 (22-30) mmol/L Anion Gap 17 mmol/L BUN 8 L (9-20) mg/dL Creatinine 0.7 L (0.8-1.5) mg/dL Estimated GFR > 60 ml/min BUN/Creatinine Ratio 11 % Glucose 95 (75-100) mg/dL Calcium 9.5 (8.4-10.2) mg/dL Troponin T < 0.010 < 0.010 (0.00-0.029) ng/mL - EKG Data -: EKG Interpreted by Me EKG shows normal: sinus rhythm, axis, intervals, QRS complexes, ST-T waves Rate: normal - Radiology Data Radiology results: report reviewed PROCEDURE: XR CHEST ROUTINE 2V TECHNIQUE: PA and lateral chest radiographs were obtained. HISTORY: persistent cough with chest pain COMPARISONS: None. FINDINGS: Heart: Normal. Mediastinum/Vessels: Normal. Lungs/Pleural space: Normal. Bony thorax: No acute osseous abnormality. Degenerative changes of the thoracic spine. IMPRESSION: No acute cardiopulmonary disease.. This document is electronically signed by Ryan Iraheta MD., November 10 2018 09:02:46 PM ET - Medical Decision Making Pt is a 42 yo male who presents to the ED with c/o substernal CP that began at 4 PM today. He describes the pain as sharp. He denies any SOB, radiation of the pain, emesis, or LE edema. Pt denies any recent long car or plane ride, recent surgery, or recent immobilization. Pt has had this same exact pain multiple dano es in the past. The patient was admitted to the hospital on 09/09 and had evaluations by both cardiology and GI. Cardiology r/o ACS. GI diagnosed pt with esophageal spasms. The patient had a normal stress treadmill test on 02/2018 and a normal echo on 11/2017. The patient denies any hx of HTN and states he is not on blood pressure medication. EKG is normal. Trop is negative x2. CXR with no acute process. Labs with mild dehydration, given 1L of normal saline. GASTON and heart score with no to very low risk. CP unlikely to be cardiac related. Pt CP is reproducible upon palpation. Will give pt anti-inflammatory, short course of steroids, and short course of muscle relaxer. Discussed to not drive or operate heavy machinery while taking muscle relaxer and only take at night as needed. Advised pt to follow up with his PCP and his GI doctor in the next 2-3 days. Return to the emergency room for any new or worsening symptoms. Critical care attestation.: If time is entered above; I have spent that time in minutes in the direct care of this critically ill patient, excluding procedure time. ED Disposition Clinical Impression: Chest wall pain Chest pain Qualifiers: Chest pain type: unspecified Qualified Code(s): R07.9 - Chest pain, unspecified Disposition: TO HOME OR SELFCARE Is pt being admited?: No Does the pt Need Aspirin: No Condition: Stable Instructions: Chest Pain (ED), Costochondritis (ED) Additional Instructions: Take medication as prescribed. Do not drive or operate heavy machinery while taking muscle relaxer and only take at night as needed. Please follow up with your primary care doctor and your GI doctor in the next 2-3 days. Return to the emergency room for any new or worsening symptoms. Prescriptions: Baclofen [Lioresal] 10 mg PO QHS PRN #10 tab PRN Reason: Muscle Spasm Diclofenac Sodium 75 mg PO DAILY PRN #20 tablet.dr PRN Reason: Pain, Moderate (4-6) Prednisone [predniSONE 10 mg (6-Day Pack, 21 Tabs)] 10 mg PO .TAPER 6 Days #1 t .radha.pk Referrals: TUCKER RUSSELL MD [Primary Care Provider] - 2-3 Days [facility] [Provider Group] - 2-3 Days Time of Disposition: 00:22 Print Language: FRENCH
[2018-11-11 02:12] VITALS: BP 97/64
== END 2018-11-11 01:05 | disposition home or self-care (01) ==
LOC: ED 17:27
DX: R07.89 Other chest pain (principal); E86.0 Dehydration; I10 Essential (primary) hypertension; E11.9 Type 2 diabetes mellitus without complications; K21.9 Gastro-esophageal reflux disease without esophagitis; J45.909 Unspecified asthma, uncomplicated; Z98.890 Other specified postprocedural states
CPT/HCPCS: 36415; 71046; 80048; 84484; 85025; 93005; 93010; 96360; 99285; J7030

== ENCOUNTER 2018-11-14 19:20 | Emergency (ER) | payer MEDICARE ==
[2018-11-14] MEDS ORDERED: ASPIRIN PO ONE (19:44)
[2018-11-14 20:02] LABS: Basophils % (Auto) 0.2 % (0.0-1.8); Eosinophils % (Auto) 0.1 % (0.0-4.3); Hematocrit 45.1 % (35.5-45.6); Lymphocytes % (Auto) 10.4 % (13.4-35.0); Mean Corpuscular HGB Conc 36 % (32-34); Mean Corpuscular Volume 95 fl (84-94); Monocytes # (Auto) 0.4 K/mm3 (0.0-0.8); Monocytes % (Auto) 4.5 % (0.0-7.3); Platelet Count 224 K/mm3 (140-440); Red Blood Count 4.77 M/mm3 (3.65-5.03); Red Cell Distribution Width 13.2 % (13.2-15.2)
[2018-11-14 20:19] LABS: BUN/Creatinine Ratio 14; Blood Urea Nitrogen 10 mg/dL (9-20); Calcium 9.7 mg/dL (8.4-10.2); Hemolysis Index 12
[2018-11-14] MEDS ORDERED: CARAFATE PO ONE (20:46)
[2018-11-14] MEDS ORDERED: PEPCID PO ONE (20:46)
[2018-11-14] MEDS ORDERED: ZOFRAN ORAL LIQ PO ONE (20:46)
--- NOTE | 2018-11-14 20:47 | Emergency Department Report ---
ED General Adult HPI - General Chief complaint: Chest Pain Stated complaint: CHEST PAIN Time Seen by Provider: 11/14/18 20:27 Source: patient, EMS (ems notes not available at time of chart dictation), RN notes reviewed, old records reviewed Mode of arrival: Ambulatory Limitations: No Limitations - History of Present Illness Initial comments: This is a 42-year-old gentleman. The patient has a past medical history of chronic nausea vomiting, presumed esophageal spasms, GERD, recently seen by cardiology at this hospital in August 2018. His objective testing included a barium swallow, with intermittent esophageal spasms noted, normal exercise stress test, in February 2018, and an echocardiogram in November 2017, which demonstrated an ejection fraction of 50-60%. In August of this year, the consulting cardiology team had recommended GI consultation, and did not recommend additional risk stratification for coronary artery disease. The patient was also seen by gastroenterology, left the time, recommended baclofen, and chronic proton pump inhibitors. Additional recommendations were also made, including optimize glycemic control, small meals, supportive care, with no intention to perform endoscopy. Today, the patient presents to the emergency room with a complaint of central substernal chest pressure and pain, constant, since 4:30 in the afternoon, nonexertional, worsens with swallowing, deep inspiration, with no diaphoresis. The patient denies recent aspirin use, denies leg pain, leg swelling, recent surgeries, and recent immobilizations. The patient makes no complaint of headache, neck pain, lower abdominal pain or urinary symptoms. The patient denies DVT, pulmonary embolus risk factors. -: Gradual Location: chest Radiation: non-radiation Severity scale (0 -10): 10 Quality: burning, aching Consistency: constant Improves with: rest Worsens with: eating, movement - Related Data Home Medications Medication Instructions Recorded Confirmed Last Taken Fluticasone/Salmeterol [Advair 1 puff IH BID 01/23/15 09/02/18 12/17/17 Diskus 250-50 mcg] Docusate Sodium [Colace CAP] 100 mg PO BID 10/08/16 09/02/18 12/17/17 Psyllium Husk [Metamucil] 0.52 gm PO DAILY 10/08/16 09/02/18 12/17/17 diphenhydrAMINE [Benadryl CAP] 50 mg PO QHS 10/08/16 09/02/1812/17/18 levETIRAcetam [Keppra TAB] 1,000 mg PO TID 10/08/16 09/02/18 12/17/17 Omeprazole 20 mg PO DAILY 12/18/17 09/02/18 12/17/17 Folic Acid [Folvite] 1 mg PO QDAY 09/02/18 09/02/18 Unknown Sertraline [Zoloft] 150 mg PO QDAY 09/02/18 09/02/18 Unknown risperiDONE [RisperDAL] 1 mg PO TID 09/02/18 09/02/18 Unknown Previous Rx's Medication Instructions Recorded Last Taken Type Tamsulosin [Flomax] 0.4 mg PO BID capsule 01/28/15 12/17/17 Rx traZODone [Desyrel] 100 mg PO QHS #30 tablet 12/20/17 Unknown Rx Baclofen [Lioresal] 10 mg PO QHS PRN #10 tab 11/11/18 Unknown Rx Diclofenac Sodium 75 mg PO DAILY PRN #20 tablet. 11/11/18 Unknown Rx Prednisone [predniSONE 10 mg 10 mg PO .TAPER 6 Days #1 tab.ds.pk 11/11/18 Unknown Rx (6-Day Pack, 21 Tabs)] Ondansetron [Zofran Odt] 4 mg PO Q8HR PRN #20 tab.rapdis 11/14/18 Unknown Rx Allergies Allergy/AdvReac Type Severity Reaction Status Date / Time No Known Allergies Allergy Verified 12/11/17 23:40 ED Review of Systems ROS: Stated complaint: CHEST PAIN Other details as noted in HPI Constitutional: denies: fever Eyes: denies: eye discharge ENT: denies: congestion Respiratory: denies: cough, wheezing Cardiovascular: chest pain Gastrointestinal: abdominal pain, nausea, vomiting Genitourinary: denies: urgency Musculoskeletal: denies: back pain Skin: denies: lesions Neurological: denies: weakness Psychiatric: anxiety ED Past Medical Hx - Past Medical History Previous Medical History?: Yes Hx Hypertension: Yes Hx Congestive Heart Failure: No Hx Diabetes: Yes Hx GERD: Yes Hx Seizures: Yes (Last seizure 4 years ago) Hx Asthma: Yes Hx COPD: No Additional medical history: legally blind. pneumonia - Surgical History Past Surgical History?: Yes Additional Surgical History: METAL PLATE in the back of his head. 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 thyroid surgery - Social History Smoking Status: Never Smoker Substance Use Type: None - Medications Home Medications: Home Medications Medication Instructions Recorded Confirmed Last Taken Type Fluticasone/Salmeterol [Advair 1 puff IH BID 01/23/15 09/02/18 12/17/17 History Diskus 250-50 mcg] Tamsulosin [Flomax] 0.4 mg PO BID capsule 01/28/15 09/02/18 12/17/17 Rx Docusate Sodium [Colace CAP] 100 mg PO BID 10/08/16 09/02/18 12/17/17 History Psyllium Husk [Metamucil] 0.52 gm PO DAILY 10/08/16 09/02/18 12/17/17 History diphenhydrAMINE [Benadryl CAP] 50 mg PO QHS 10/08/16 09/02/18 12/17/17 History levETIRAcetam [Keppra TAB] 1,000 mg PO TID 10/08/16 09/02/18 12/17/17 History Omeprazole 20 mg PO DAILY 12/18/17 09/02/18 12/17/17 History traZODone [Desyrel] 100 mg PO QHS #30 tablet 12/20/17 09/02/18 Unknown Rx Folic Acid [Folvite] 1 mg PO QDAY 09/02/18 09/02/18 Unknown History Sertraline [Zoloft] 150 mg PO QDAY 09/02/18 09/02/18 Unknown History risperiDONE [RisperDAL] 1 mg PO TID 09/02/18 09/02/18 Unknown History Baclofen [Lioresal] 10 mg PO QHS PRN #10 tab 11/11/18 Unknown Rx Diclofenac Sodium 75 mg PO DAILY PRN #20 tablet.dr 11/11/18 Unknown Rx Prednisone [predniSONE 10 mg 10 mg PO .TAPER 6 Days #1 tab.ds.pk 11/11/18 U nknown Rx (6-Day Pack, 21 Tabs)] Ondansetron [Zofran Odt] 4 mg PO Q8HR PRN #20 tab.rapdis 11/14/18 Unknown Rx ED Physical Exam - General Limitations: No Limitations General appearance: alert, in no apparent distress - Head Head exam: Present: atraumatic, other (evidence of prior occipital cranial surgery noted, with no acute redness, pus or streaking) - Eye Eye exam: Present: normal appearance, EOMI. Absent: nystagmus - ENT ENT exam: Present: normal exam, normal orophraynx, mucous membranes moist, normal external ear exam - Neck Neck exam: Present: normal inspection, full ROM. Absent: tenderness, meningismus - Respiratory Respiratory exam: Present: normal lung sounds bilaterally, chest wall tenderness. Absent: respiratory distress - Cardiovascular Cardiovascular Exam: Present: regular rate, normal rhythm, normal heart sounds. Absent: bradycardia, tachycardia, irregular rhythm, systolic murmur, diastolic murmur, rubs, gallop - GI/Abdominal GI/Abdominal exam: Present: soft. Absent: distended, tenderness, guarding, rebound, rigid, pulsatile mass - Rectal Rectal exam: Present: deferred - Extremities Exam Extremities exam: Present: normal inspection, full ROM, other (2+ pulses noted in the bilateral upper, lower extremities. Compartments soft. No long bony tenderness. The pelvis is stable.). Absent: pedal edema, calf tenderness - Back Exam Back exam: Present: normal inspection, full ROM. Absent: tenderness, CVA tenderness (R), paraspinal tenderness, vertebral tenderness - Neurological Exam Neurological exam: Present: alert, other (Extraocular movements intact. Tongue midline. No facial droop. Facial sensation intact to light touch in the V1, V2, V3 distribution bilaterally. 5 and 5 strength in 4 extremities.. Sensation is intact to light touch in 4 extremities.). Absent: motor sensory deficit - Psychiatric Psychiatric exam: Present: anxious - Skin Skin exam: Present: warm, dry, intact, normal color. Absent: rash ED Course Vital Signs 11/14/18 11/14/18 11/14/18 19:41 20:46 21:00 Temperature 98.2 F 97.6 F Pulse Rate 87 18 L 72 Respiratory 16 18 Rate Blood Pressure 150/101 126/98 Blood Pressure 130/87 [Left] O2 Sat by Pulse 98 97 95 Oximetry 11/14/18 11/14/18 22:00 23:00 Temperature Pulse Rate 67 68 Respiratory Rate Blood Pressure 146/96 119/87 Blood Pressure [Left] O2 Sat by Pulse 94 97 Oximetry - Reevaluation(s) Reevaluation #1: 11/14/18 21:21 Differential diagnosis, including not limited to: Esophageal spasm, GERD, gastritis, hiatal hernia, pneumonia, acute coronary syndrome, costochondritis Assessment and plan: 42-year-old gentleman, with no pulmonary embolus or DVT risk factors, who is low risk by well's criteria, who is perc negative, who is low risk by the DOMINIQUE score, low risk by the heart score, for major adverse cardiac event, with known documented esophageal spasms and pathology, also with reproducible chest wall pain. We will treat the patient's symptoms. EKG is unchanged 2. Troponin is negative times one. No active vomiting BuSpar. Reevaluation #2: 11/14/18 23:21 EKG unchanged 2. Troponin negative 2. Patient resting comfortably. The patient is medically suitable to be discharged at this point time, with instructions to follow up with outpatient cardiology, gastroenterology. ED Medical Decision Making - Lab Data Result diagrams: 11/14/18 19:46 11/14/18 19:46 Vital Signs 11/14/18 11/14/18 19:41 20:46 Temperature 98.2 F 97.6 F Pulse Rate 87 18 L Respiratory 16 18 Rate Blood Pressure 150/101 Blood Pressure 130/87 [Left] O2 Sat by Pulse 98 97 Oximetry Lab Results 11/14/18 11/14/18 Range/Units 19:46 19:46 WBC 9.8 (4.5-11.0) K/mm3 RBC 4.77 (3.65-5.03) M/mm3 Hgb 16.0 H (11.8-15.2) gm/dl Hct 45.1 (35.5-45.6) % MCV 95 H (84-94) fl MCH 34 H (28-32) pg MCHC 36 H (32-34) % RDW 13.2 (13.2-15.2) % Plt Count 224 (140-440) K/mm3 Lymph % (Auto) 10.4 L (13.4-35.0) % Rogers % (Auto) 4.5 (0.0-7.3) % Eos % (Auto) 0.1 (0.0-4.3) % Baso % (Auto) 0.2 (0.0-1.8) % Lymph # 1.0 L (1.2-5.4) K/mm3 Rogers # 0.4 (0.0-0.8) K/mm3 Eos # 0.0 (0.0-0.4) K/mm3 Baso # 0.0 (0.0-0.1) K/mm3 Seg Neutrophils % 84.8 H (40.0-70.0) % Seg Neutrophils # 8.3 H (1.8-7.7) K/mm3 Sodium 133 L (137-145) mmol/L Potassium 3.9 (3.6-5.0) mmol/L Chloride 96.4 L (98-107) mmol/L Carbon Dioxide 26 (22-30) mmol/L Anion Gap 15 mmol/L BUN 10 (9-20) mg/dL Creatinine 0.7 L (0.8-1.5) mg/dL Estimated GFR > 60 ml/min BUN/Creatinine Ratio 14 % Glucose 105 H (75-100) mg/dL Calcium 9.7 (8.4-10.2) mg/dL Troponin T < 0.010 (0.00-0.029) ng/mL - EKG Data -: EKG Interpreted by Ut EKG shows normal: sinus rhythm Rate: normal - EKG Data When compared to previous EKG there are: no significant change 11/14/18 21:20 EKG #1 shows sinus rhythm, 79 beats per minutes, normal axis, motion artifact, QTC within normal limits, this is an abnormal EKG secondary to motion artifact. This EKG is not consistent with ST elevation myocardial infarction. Repeat EKG appears to be unchanged, motion artifact is still appreciated. Both EKGs appeared to be unchanged when compared to prior EKG from 11/10/2018. - Radiology Data Radiology results: pending, report reviewed, image reviewed X-ray of the chest is negative for acute disease. Critical care attestation.: If time is entered above; I have spent that time in minutes in the direct care of this critically ill patient, excluding procedure time. ED Disposition Clinical Impression: Chest wall pain Disposition: DC- TO HOME OR SELFCARE Is pt being admited?: No Does the pt Need Aspirin: No Condition: Good Instructions: Chest Pain (ED), Costochondritis (ED) Additional Instructions: Continue outpatient medications. Avoid consumption of Motrin, ibuprofen, Naprosyn, Aleve. Make certain that patient adheres to a diet which is consistent with the needs of a type II diabetic. When eating, the patient should consume small, frequent meals. Patient take acetaminophen [id number] as needed for chest wall pain. Continue outpatient medications. Follow up with a blind lacer within the next 3-5 days. Follow up with a fish farm manager within the next 5-7 days. Return to the emergency room right away with new pain, worsened pain, migration of pain, projectile vomiting, change in mental status, confusion, inability to tolerate liquid feeds, new, worsening or different symptoms. Prescriptions: Ondansetron [Zofran Odt] 4 mg PO Q8HR PRN #20 tab.rapdis PRN Reason: Nausea Referrals: OSCAR REYNA MD [Staff Physician] - 3-5 Days JAREK JUAREZ MD [Staff Physician] - 3-5 Days
--- NOTE | 2018-11-14 20:59 | XRay Report ---
PROCEDURE: XR CHEST 1V AP TECHNIQUE: Chest radiograph single view. HISTORY: Chest Pain COMPARISONS: November 10, 2018 . FINDINGS: Heart: Normal. Mediastinum/Vessels: Normal. Lungs/Pleural space: Normal. Bony thorax: No acute osseous abnormality. Life support devices: None. IMPRESSION: No acute cardiopulmonary abnormality. This document is electronically signed by Chi Zambrano MD., November 14 2018 08:57:16 PM ET
[2018-11-14] MEDS ORDERED: TYLENOL PO ONE (22:17)
[2018-11-14 23:10] VITALS: BP 119/87
== END 2018-11-14 23:45 | disposition home or self-care (01) ==
LOC: ED 19:20
DX: R07.89 Other chest pain (principal); I10 Essential (primary) hypertension; E11.9 Type 2 diabetes mellitus without complications; K21.9 Gastro-esophageal reflux disease without esophagitis; J45.909 Unspecified asthma, uncomplicated; Z79.899 Other long term (current) drug therapy
CPT/HCPCS: 36415; 71045; 80048; 84484; 85025; 93005; 93010; 99284; Q0162

== ENCOUNTER 2019-02-09 20:57 | Emergency (ER) | payer MEDICARE ==
[2019-02-09 21:16] VITALS: BP 134/95
--- NOTE | 2019-02-09 21:45 | Emergency Department Report ---
Blank Doc - Documentation Documentation: This is a 43-year-old male that presents with chest pain and SOB. This initial assessment/diagnostic orders/clinical plan/treatment(s) is/are subject to change based on patient's health status, clinical progression and re- assessment by fellow clinical providers in the ED. Further treatment and workup at subsequent clinical providers discretion. Patient/guardians urged not to elope from the ED as their condition may be serious if not clinically assessed and managed. Initial orders include: 1- Patient sent to [facility] for further evaluation and treatment 2- EKG 3- labs 4- CXR
--- NOTE | 2019-02-09 22:33 | XRay Report ---
CHEST 2 VIEWS INDICATION / CLINICAL INFORMATION: Chest Pain. COMPARISON: One view of the chest from 11/14/2018. FINDINGS: SUPPORT DEVICES: None. HEART / MEDIASTINUM: No significant abnormality. LUNGS / PLEURA: No significant pulmonary or pleural abnormality. No pneumothorax. ADDITIONAL FINDINGS: No significant additional findings. IMPRESSION: No acute findings. Signer Name: Bossman Sandoval MD Signed: 02/09/2019 10:29 PM Workstation Name: [id number]
[2019-02-09 22:40] LABS: Basophils % (Auto) 0.4 % (0.0-1.8); Eosinophils % (Auto) 0.1 % (0.0-4.3); Lymphocytes # (Auto) 0.8 K/mm3 (1.2-5.4); Mean Corpuscular HGB Conc 36 % (32-34); Mean Corpuscular Volume 94 fl (84-94); Monocytes # (Auto) 0.6 K/mm3 (0.0-0.8); Monocytes % (Auto) 5.6 % (0.0-7.3); Platelet Count 233 K/mm3 (140-440); Red Blood Count 4.77 M/mm3 (3.65-5.03); Red Cell Distribution Width 13.4 % (13.2-15.2)
[2019-02-09 22:41] LABS: Hematocrit 44.8 % (35.5-45.6); Hemoglobin 15.9 gm/dl (11.8-15.2)
[2019-02-09 22:50] LABS: INR 1.03 (0.87-1.13)
[2019-02-09 22:57] LABS: BUN/Creatinine Ratio 11; Blood Urea Nitrogen 8 mg/dL (9-20); Calcium 9.6 mg/dL (8.4-10.2); Hemolysis Index 6
[2019-02-09] MEDS ORDERED: ALUM-MAG HYDROX-SIMETH 200-200-20MG/5ML PO ONE (23:59)
[2019-02-09] MEDS ORDERED: LIDOCAINE VISCOUS 2% PO ONE (23:59)
[2019-02-10] MEDS ORDERED: NORCO 5/325 PO ONE (01:16)
--- NOTE | 2019-02-10 01:20 | Emergency Department Report ---
ED Chest Pain HPI - General Chief Complaint: Chest Pain Stated Complaint: CHEST PAIN Time Seen by Provider: 02/09/19 21:44 Source: patient, EMS Mode of arrival: Wheelchair Limitations: No Limitations - History of Present Illness Initial Comments: pt is a 43 y/o w/m who presents for epigastric chest pain x 1 day pt has hx or GERD states no taking medications as rx, pt denies sob no back pain no n/v states symptoms are exacerbated by nothing. MD Complaint: chest pain Onset/Timin -: days(s) Onset: during rest Pain Location: epigastric Pain Radiation: none Severity: moderate Severity scale (0 -10): 5 Quality: heaviness (burning ) Consistency: constant Improves With: other (belching ) Worsens With: eating re: denies: nausea, vomting, diaphoresis, dyspnea, sense of impending doom Other Symptoms: acid taste in mouth, burping. denies: fever Treatments Prior to Arrival: none Aspirin use within the Past 7 Days: (0) No - Related Data Home Medications Medication Instructions Recorded Confirmed Last Taken Fluticasone/Salmeterol [Advair 1 puff IH BID 01/23/15 09/02/18 12/17/17 Diskus 250-50 mcg] Docusate Sodium [Colace CAP] 100 mg PO BID 10/08/16 09/02/18 12/17/17 Psyllium Husk [Metamucil] 0.52 gm PO DAILY 10/08/16 09/02/18 12/17/17 diphenhydrAMINE [Benadryl CAP] 50 mg PO QHS 10/08/16 09/02/18 12/17/17 levETIRAcetam [Keppra TAB] 1,000 mg PO TID 10/08/16 09/02/18 12/17/17 Omeprazole 20 mg PO DAILY 12/18/17 09/02/18 12/17/17 Folic Acid [Folvite] 1 mg PO QDAY 09/02/18 09/02/18 Unknown Sertraline [Zoloft] 150 mg PO QDAY 09/02/18 09/02/18 Unknown risperiDONE [RisperDAL] 1 mg PO TID 09/02/18 09/02/18 Unknown Previous Rx's Medication Instructions Recorded Last Taken Type Tamsulosin [Flomax] 0.4 mg PO BID capsule 01/28/15 12/17/17 Rx traZODone [Desyrel] 100 mg PO QHS #30 tablet 12/20/17 Unknown Rx Baclofen [Lioresal] 10 mg PO QHS PRN #10 tab 11/11/18 Unknown Rx Diclofenac Sodium 75 mg PO DAILY PRN #20 tablet. 11/11/18 Unknown Rx Prednisone [predniSONE 10 mg 10 mg PO .TAPER 6 Days #1 tab.ds.pk 11/11/18 Unknown Rx (6-Day Pack, 21 Tabs)] Ondansetron [Zofran Odt] 4 mg PO Q8HR PRN #20 tab.rapdis 11/14/18 Unknown Rx Omeprazole 20 mg PO DAILY #30 capsule. 02/10/19 Unknown Rx Sucralfate [Carafate] 1 gm PO ACHS 7 Days #28 tablet 02/10/19 Unknown Rx Allergies Allergy/AdvReac Type Severity Reaction Status Date / Time No Known Allergies Allergy Verified 12/11/17 23:40 Heart Score - HEART Score History: Slightly suspicious EKG: Normal Age: 45-65 Risk factors: 1-2 risk factors Troponin: < normal limit HEART Score: 2 ED Review of Systems ROS: Stated complaint: CHEST PAIN Other details as noted in HPI Constitutional: denies: chills, fever Eyes: denies: eye pain, eye discharge, vision change ENT: denies: ear pain, throat pain Respiratory: denies: cough, shortness of breath, wheezing Cardiovascular: chest pain. denies: palpitations Endocrine: no symptoms reported Gastrointestinal: denies: abdominal pain, nausea, vomiting, diarrhea, constipation, hematemesis, melena, hematochezia Genitourinary: denies: urgency, dysuria Musculoskeletal: denies: back pain, joint swelling, arthralgia Skin: denies: rash, lesions Neurological: denies: headache, weakness, paresthesias Psychiatric: denies: anxiety, depression Hematological/Lymphatic: denies: easy bleeding, easy bruising ED Past Medical Hx - Past Medical History Previous Medical History?: Yes Hx Hypertension: Yes Hx Congestive Heart Failure: No Hx Diabetes: Yes Hx GERD: Yes Hx Seizures: Yes (Last seizure 4 years ago) Hx Asthma: Yes Hx COPD: No Additional medical history: MR. legally blind. pneumonia - Surgical History Past Surgical History?: Yes Additional Surgical History: METAL PLATE in the back of his head. 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 thyroid surgery - Social History Smoking Status: Never Smoker - Medications Home Medications: Home Medications Medication Instructions Recorded Confirmed Last Taken Type Fluticasone/Salmeterol [Advair 1 puff IH BID 01/23/15 09/02/18 12/17/17 History Diskus 250-50 mcg] Tamsulosin [Flomax] 0.4 mg PO BID capsule 01/28/15 09/02/18 12/17/17 Rx Docusate Sodium [Colace CAP] 100 mg PO BID 10/08/16 09/02/18 12/17/17 History Psyllium Husk [Metamucil] 0.52 gm PO DAILY 10/08/16 09/02/18 12/17/17 History diphenhydrAMINE [Benadryl CAP] 50 mg PO QHS 10/08/16 09/02/18 12/17/17 History levETIRAcetam [Keppra TAB] 1,000 mg PO TID 10/08/16 09/02/18 12/17/17 History Omeprazole 20 mg PO DAILY 12/18/17 09/02/18 12/17/17 History traZODone [Desyrel] 100 mg PO QHS #30 tablet 12/20/17 09/02/18 Unknown Rx Folic Acid [Folvite] 1 mg PO QDAY 09/02/18 09/02/18 Unknown History Sertraline [Zoloft] 150 mg PO QDAY 09/02/18 09/02/18 Unknown History risperiDONE [RisperDAL] 1 mg PO TID 09/02/18 09/02/18 Unknown History Baclofen [Lioresal] 10 mg PO QHS PRN #10 tab 11/11/18 Unknown Rx Diclofenac Sodium 75 mg PO DAILY PRN #20 tablet. 11/11/18 Unknown Rx Prednisone [predniSONE 10 mg 10 mg PO .TAPER 6 Days #1 tab.ds.pk 11/11/18 Unknown Rx (6-Day Pack, 21 Tabs)] Ondansetron [Zofran Odt] 4 mg PO Q8HR PRN #20 tab.rapdis 11/14/18 Unknown Rx Omeprazole 20 mg PO DAILY #30 capsule. 02/10/19 Unknown Rx Sucralfate [Carafate] 1 gm PO ACHS 7 Days #28 tablet 02/10/19 Unknown Rx ED Physical Exam - General Limitations: No Limitations General appearance: alert, in no apparent distress - Head Head exam: Present: atraumatic, normocephalic - Eye Eye exam: Present: normal appearance, PERRL, EOMI Pupils: Present: normal accommodation - ENT ENT exam: Present: normal orophraynx, mucous membranes moist, TM's normal bilaterally, normal external ear exam - Neck Neck exam: Present: normal inspection, full ROM, lymphadenopathy. Absent: tenderness - Respiratory Respiratory exam: Absent: wheezes, stridor, chest wall tenderness - Cardiovascular Cardiovascular Exam: Present: regular rate, normal rhythm, normal heart sounds. Absent: systolic murmur, diastolic murmur, rubs, gallop - GI/Abdominal GI/Abdominal exam: Present: soft, normal bowel sounds. Absent: tenderness, bruit, hernia - Rectal Rectal exam: Present: deferred - Extremities Exam Extremities exam: Present: normal inspection, full ROM, normal capillary refill. Absent: tenderness, pedal edema, joint swelling, calf tenderness - Back Exam Back exam: Present: normal inspection, full ROM. Absent: tenderness, CVA tenderness (R), CVA tenderness (L), rash noted - Neurological Exam Neurological exam: Present: alert, oriented X3, CN II-XII intact, normal gait, reflexes normal. Absent: motor sensory deficit - Psychiatric Psychiatric exam: Present: normal affect, normal mood - Skin Skin exam: Present: warm, dry, intact, normal color. Absent: rash ED Course Vital Signs 02/09/19 21:00 Temperature 98.5 F Pulse Rate 98 H Respiratory 18 Rate Blood Pressure 134/95 O2 Sat by Pulse 95 Oximetry DOMINIQUE score - Dominique Score Age > 65: (0) No Aspirin use within the Past 7 Days: (0) No 3 or more CAD Risk Factors: (0) No 2 or more Angina events in past 24 hrs: (0) No Known CAD with more than 50% Stenosis: (0) No Elevated Cardiac Markers: (0) No ST Deviation Greater than 0.5mm: (0) No DOMINIQUE Score: 0 ED Medical Decision Making - Lab Data Result diagrams: 02/09/19 21:48 02/09/19 21:48 Critical care attestation.: If time is entered above; I have spent that time in minutes in the direct care of this critically ill patient, excluding procedure time. ED Disposition Clinical Impression: Epigastric pain GERD (gastroesophageal reflux disease) Qualifiers: Esophagitis presence: without esophagitis Qualified Code(s): K21.9 - Gastro- esophageal reflux disease without esophagitis Disposition: TO HOME OR SELFCARE Is pt being admited?: No Does the pt Need Aspirin: No Condition: Stable Instructions: Diet for Ulcers and Gastritis (ED), Gastroesophageal Reflux in Children (ED), Chest Pain (ED) Prescriptions: Sucralfate [Carafate] 1 gm PO ACHS 7 Days #28 tablet Omeprazole 20 mg PO DAILY #30 capsule.dr Referrals: KEM RUSSELL MD [Primary Care Provider] - 3-5 Days Forms: Work/School Release Form(ED) Time of Disposition: 01:26
== END 2019-02-10 01:41 | disposition home or self-care (01) ==
LOC: ED 20:57
DX: K21.9 Gastro-esophageal reflux disease without esophagitis (principal); I10 Essential (primary) hypertension; E11.9 Type 2 diabetes mellitus without complications; J45.909 Unspecified asthma, uncomplicated; J18.9 Pneumonia, unspecified organism; Z79.899 Other long term (current) drug therapy
CPT/HCPCS: 36415; 71046; 80048; 84484; 85025; 85610; 85730; 93005; 93010; 99284